=== PATIENT | male | born 1960 | race African-American/Black ===

== ENCOUNTER 2018-05-21 13:59 | Inpatient (IN) | payer OTHER ==
[2018-05-21 17:17] VITALS: BMI 25.0
--- NOTE | 2018-05-21 20:09 | HP ---
CIWA Score Nausea/Vomitin Muscle Tremors: 2 Anxiety: 1-Mildly Anxious Agitation: 2 Paroxysmal Sweats: 1-Minimal Palms Moist Orientation: 0-Oriented Tacttile Disturbances: 0-None Auditory Disturbances: 0-None Visual Disturbances: 0-None Headache: 6-Very Severe CIWA-Ar Total Score: 14 - Admission Criteria OASAS Guidelines: Admission for Medically Managed Detox: Requires at least one of the followin. CIWA greater than 12 2. Seizures within the past 24 hours 3. Delirium tremens within the past 24 hours 4. Hallucinations within the past 24 hours 5. Acute intervention needed for co occurring medical disorder 6. Acute intervention needed for co occurring psychiatric disorder 7. Severe withdrawal that cannot be handled at a lower level of care (continued vomiting, continued diarrhea, abnormal vital signs) requiring intravenous medication and/or fluids 8. Patient presents the following: CIWA greater than 12 Admission Criteria Met: Admission criteria met Admission ROS [facility] Chief Complaint: "I am here to detox from alcohol and crack" Allergies/Adverse Reactions: Allergies Allergy/AdvReac Type Severity Reaction Status Date / Time ibuprofen [From Motrin] Allergy Severe Difficulty Verified 05/21/18 17:56 Breathing History of Present Illness: 57 yo asthma, and h/o neck fracture, h/o groin hernia repair, here for alcohol detox. Started drinking alcohol at the age of 13. Using 1/2 liter of vodka a day. No h/ o seizures or DT's. Does not remember if he has had detox/rehab admissions. Last drink 2 days ago. Says he does not feel good now. Lives in [place]. Lives alone Also smokes $50-100/day of crack cocaine. Utox pos for cocaine, MIGNON- no alcohol ISTOP: 03/2018: percocet 5/325 #8 for neck pain 02/24/2018: diazepam 5mg 8 pills Exam Limitations: No Limitations - Ebola screening Have you traveled outside of the country in the last 21 days: No Have you had contact with anyone from an Ebola affected area: No Have you been sick,other than usual withdrawal symptoms: No Do you have a fever: No Patient History - Patient Medical History Hx Asthma: Yes Hx Chronic Obstructive Pulmonary Disease (COPD): No Hx Cancer: No Hx Cardiac Disorders: No Hx Congestive Heart Failure: No Hx Hypertension: No Hx Hypercholesterolemia: No Hx Pacemaker: No HX Cerebrovascular Accident: No Hx Seizures: No Hx Dementia: No Hx Diabetes: No Hx Gastrointestinal Disorders: No Hx Liver Disease: No Hx Genitourinary Disorders: No Hx Sexually Transmitted Disorders: No Hx Renal Disease (ESRD): No Hx Thyroid Disease: No Hx Human Immunodeficiency Virus (HIV): No Hx Hepatitis C: No Hx Depression: No Hx Suicide Attempt: No Hx Bipolar Disorder: No Hx Schizophrenia: No - Patient Surgical History Past Surgical History: Yes Hx Neurologic Surgery: No Hx Cataract Extraction: No Hx Cardiac Surgery: No Hx Lung Surgery: No Hx Breast Surgery: No Hx Breast Biopsy: No Hx Abdominal Surgery: Yes (incarcerated hernia repair X2 ) Hx Appendectomy: No Hx Cholecystectomy: No Hx Genitourinary Surgery: No Hx Section: No Hx Orthopedic Surgery: No Hx Hysterectomy: No Anesthesia Reaction: No - PPD History Previous Implant?: Yes Documented Results: Negative w/o proof PPD to be Administered?: Yes - Smoking Cessation Smoking history: Current every day smoker Have you smoked in the past 12 months: No Aproximately how many cigarettes per day: 4 Hx Chewing Tobacco Use: No Initiated information on smoking cessation: Yes 'Breaking Loose' booklet given: 05/21/18 - Substance & Tx. History Hx Alcohol Use: Yes (1/2 liter of vodka a day) Substance Use Type: Cocaine - Substances Abused Alcohol Route: Oral Frequency: Daily Amount used: LIQUOR- 2 PINTS, BEER- 1 SIX PACK Age of first use: 16 Date of Last Use: 05/19/18 Crack Route: Smoking Frequency: Daily Amount used: $65 WORTH Age of first use: 25 Date of Last Use: 05/21/18 Family Disease History - Family Disease History Family History: Denies Admission Physical Exam S - Vital Signs Vital Signs: Vital Signs - 24 hr 05/21/18 17:15 Temperature 98.3 F Pulse Rate 81 Respiratory 18 Rate Blood Pressure 123/80 - Physical General Appearance: Yes: Within Normal Limits HEENTM: Yes: Within Normal Limits, Pharynx Normal, Tm's normal (poor dentition) Respiratory: Yes: Within Normal Limits, Lungs Clear Neck: Yes: Within Normal Limits, No masses,lesions,Nodules Cardiology: Yes: Within Normal Limits, Regular Rhythm, S1, S2 Genitourinary: Yes: Within Normal Limits (abdominal scar) Back: Yes: Within Normal Limits Musculoskeletal: Yes: Within Normal Limits, full range of Motion Extremities: Yes: Within Normal Limits, Normal Inspection, Normal Range of Motion Neurological: Yes: Within Normal Limits, recycling director II-XII NML intact, Fully Oriented, Alert, Motor Strength 5/5 Integumentary: Yes: Within Normal Limits Lymphatic: Yes: Within Normal Limits - Diagnostic (1) Alcohol use disorder Current Visit: Yes Status: Acute (2) Asthma Current Visit: Yes Status: Acute (3) Cocaine use disorder Current Visit: Yes Status: Acute (4) Neck pain Current Visit: Yes Status: Acute (5) Nicotine use disorder Current Visit: Yes Status: Acute BHS Breath Alcohol Content Breath Alcohol Content: 0 Urine Drug Screen - Results Drug Screen Negative: No Urine Drug Screen Results: ANGUS-Cocaine
[2018-05-21] MEDS ORDERED: MAGNESIUM CITRATE 300 ML BOTTLE PO PRN (20:28)
[2018-05-21] MEDS ORDERED: guaiFENesin/D-METHORPHAN HB 10 ML UNIT-DOSE CUPS PO PRN (20:28)
[2018-05-21] MEDS ORDERED: MAG HYDROX/AL HYDROX/SIMETH 30 ML UNIT-DOSE CUP PO PRN (20:28)
[2018-05-21] MEDS ORDERED: P-EPHED 60MG/TRIPROLIDI 2.5MG TABLET PO PRN (20:28)
[2018-05-21] MEDS ORDERED: MAGNESIUM HYDROX 2400MG/30ML ORAL SUSPENSION 30 ML CUP PO PRN (20:28)
[2018-05-21] MEDS ORDERED: LOPERAMIDE HCL 2 MG CAPSULE PO PRN (20:28)
[2018-05-21] MEDS ORDERED: MENTHOL/PHENOL 1 EACH UD MM PRN (20:28)
[2018-05-21] MEDS ORDERED: chlordiazePOXIDE HCL 25 MG CAPSULE PO PRN (20:30)
[2018-05-21] MEDS ORDERED: ALBUTEROL SO4 8 GM HFA INHALER IH PRN (20:30)
[2018-05-21] MEDS: THIAMINE HCL 100 MG TABLET (FP) PO SCH (21:35)
[2018-05-21] MEDS: GABAPENTIN 300 MG CAPSULE (FP) PO SCH (21:36)
[2018-05-21] MEDS: ACETAMINOPHEN 325 MG TABLET (FP) PO PRN (21:38)
[2018-05-21] MEDS: chlordiazePOXIDE HCL 25 MG CAPSULE PO SCH (22:48)
[2018-05-21 23:13] LABS: URINE APPEARANCE CLEAR; URINE BILIRUBIN NEGATIVE (<2.0 mg/dL); URINE COLOR YELLOW; URINE GLUCOSE (UA) NEGATIVE (NEGATIVE); URINE KETONE NEGATIVE (NEGATIVE); URINE LEUK ESTERASE NEGATIVE (NEGATIVE); URINE NITRITE NEGATIVE (NEGATIVE); URINE PROTEIN NEGATIVE (NEGATIVE); URINE UROBILINOGEN NEGATIVE mg/dL (0.2-1.0)
[2018-05-22] MEDS ORDERED: ALBUTEROL SO4 2.5/IPRATROPIUM 0.5 INH SOL 3 ML VIAL.NEB. NEB PRN (00:56)
[2018-05-22] MEDS ORDERED: ALBUTEROL SO4 2.5/IPRATROPIUM 0.5 INH SOL 3 ML VIAL.NEB. NEB ONE (01:03)
[2018-05-22] MEDS: chlordiazePOXIDE HCL 25 MG CAPSULE PO SCH ×4 (05:20→22:12)
[2018-05-22] MEDS ORDERED: SODIUM CHLORIDE FOR INHALATION 3 ML VIAL.NEB IH ONE (08:33)
[2018-05-22] MEDS: ALBUTEROL SO4 0.083% IH SOL 2.5 MG/3 ML VIAL.NEB. NEB PRN (08:58)
[2018-05-22 09:54] LABS: HEMATOCRIT 40.8 % (35.4-49); HEMOGLOBIN 12.9 GM/dL (11.7-16.9); MCH 27.1 pg (25.7-33.7); MCHC 31.7 g/dl (32.0-35.9); MEAN CELL VOLUME 85.5 fl (80-96); MEAN PLT VOLUME 8.3 fl (7.5-11.1); PLATELET COUNT 285 K/MM3 (134-434); RBC 4.77 M/mm3 (4.00-5.60); WHITE BLOOD COUNT 4.2 K/mm3 (4.0-10.0)
[2018-05-22] MEDS ORDERED: BUDESONIDE/FORMETEROL FUMARATE 160/4.5 mcg INHALER IH SCH ×2 (10:00→12:27)
[2018-05-22 10:06] LABS: ALBUMIN 3.3 g/dl (3.4-5.0); ALK PHOS 94 U/L (45-117); ANION GAP 8 MMOL/L (8-16); BILIRUBIN,TOTAL 0.2 mg/dL (0.2-1); BLOOD UREA NITROGEN 21 mg/dL (7-18); CALCIUM 8.5 mg/dL (8.5-10.1); CHLORIDE 106 mmol/L (98-107); CO2 28 mmol/L (21-32); CREATININE 1.3 mg/dL (0.55-1.3); GLUCOSE,RANDOM 81 mg/dL (74-106); POTASSIUM 4.2 mmol/L (3.5-5.1); SGOT/AST 22 U/L (15-37); SGPT/ALT 26 U/L (13-61); SODIUM 141 mmol/L (136-145); TOT PROT 7.2 g/dl (6.4-8.2)
[2018-05-22] MEDS: GABAPENTIN 300 MG CAPSULE (FP) PO SCH ×2 (10:37→22:12)
[2018-05-22] MEDS: PRENATAL VITAMINS W/ FOLIC ACID TABLET (FP) PO SCH (10:37)
[2018-05-22] MEDS: NICOTINE 14 MG/24 HOURS TOPICAL PATCH TD SCH (10:41)
[2018-05-22] MEDS: TIOTROPIUM BROMIDE 2.5 MCG (SPIRIVA) RESPIMAT INHALER IH SCH (10:53)
--- NOTE | 2018-05-22 12:38 | PN ---
S CIWA - CIWA Score Nausea/Vomitin-No Nausea/No Vomiting Muscle Tremors: 2 Anxiety: 1-Mildly Anxious Agitation: 2 Paroxysmal Sweats: 1-Minimal Palms Moist Orientation: 0-Oriented Tacttile Disturbances: 0-None Auditory Disturbances: 0-None Visual Disturbances: 0-None Headache: 0-None Present CIWA-Ar Total Score: 6 BHS Progress Note (SOAP) Subjective: Pt complaining of SOB earlier this morning- was given nebulized treatment of albuterol- feeling better in bed now. Pt states taking meds for alcohol withdrawal- day #2. O: Vital Signs - 24 hr 05/21/18 05/21/18 05/22/18 17:15 21:43 00:30 Temperature 98.3 F 97.0 F L Pulse Rate 81 66 Respiratory 18 18 18 Rate Blood Pressure 123/80 109/70 05/22/18 05/22/18 06:17 10:50 Temperature 97.6 F 96.9 F L Pulse Rate 71 76 Respiratory 18 20 Rate Blood Pressure 122/76 114/71 Laboratory Tests 05/21/18 05/22/18 05/22/18 21:34 07:00 07:00 WBC 4.2 RBC 4.77 Hgb 12.9 Hct 40.8 MCV 85.5 MCH 27.1 MCHC 31.7 L RDW 15.0 Plt Count 285 MPV 8.3 Sodium Potassium Chloride Carbon Dioxide Anion Gap BUN Creatinine Creat Clearance w eGFR Random Glucose Calcium Total Bilirubin AST ALT Alkaline Phosphatase Total Protein Albumin Urine Color Yellow Urine Appearance Clear Urine pH 5.0 Ur Specific [place] 1.027 Urine Protein Negative Urine Glucose (UA) Negative Urine Ketones Negative Urine Blood Negative Urine Nitrite Negative Urine Bilirubin Negative Urine Urobilinogen Negative Ur Leukocyte Esterase Negative RPR Titer HIV 1&2 Antibody Screen Negative HIV P24 Antigen Negative 05/22/18 05/22/18 07:00 07:00 WBC RBC Hgb Hct MCV MCH MCHC RDW Plt Count MPV Sodium 141 Potassium 4.2 Chloride 106 Carbon Dioxide 28 Anion Gap 8 BUN 21 H Creatinine 1.3 Creat Clearance w eGFR 57.10 Random Glucose 81 Calcium 8.5 Total Bilirubin 0.2 AST 22 ALT 26 Alkaline Phosphatase 94 Total Protein 7.2 Albumin 3.3 L Urine Color Urine Appearance Urine pH Ur Specific [place] Urine Protein Urine Glucose (UA) Urine Ketones Urine Blood Urine Nitrite Urine Bilirubin Urine Urobilinogen Ur Leukocyte Esterase RPR Titer Nonreactive HIV 1&2 Antibody Screen HIV P24 Antigen labs and VS WNL a/p: continue alcohol detox protocol- doing well asthma: pt has spiriva qd and symbicort BID and prn albuterol.If pt has continued Sx will add prednisone. For now pt stable after nebulized treatments
[2018-05-22] MEDS: BUDESONIDE/FORMETEROL FUMARATE 160/4.5 mcg INHALER IH SCH ×2 (14:23→22:13)
[2018-05-22] MEDS: THIAMINE HCL 100 MG TABLET (FP) PO SCH (22:12)
[2018-05-22] MEDS: ACETAMINOPHEN 325 MG TABLET (FP) PO PRN (22:13)
[2018-05-23] MEDS: MELATONIN 5 MG TABLETS PO PRN ×2 (01:26→22:20)
[2018-05-23] MEDS: chlordiazePOXIDE HCL 25 MG CAPSULE PO SCH ×3 (05:15→17:38)
[2018-05-23] MEDS: ALBUTEROL SO4 0.083% IH SOL 2.5 MG/3 ML VIAL.NEB. NEB PRN (05:20)
[2018-05-23] MEDS: PRENATAL VITAMINS W/ FOLIC ACID TABLET (FP) PO SCH (10:26)
[2018-05-23] MEDS: TIOTROPIUM BROMIDE 2.5 MCG (SPIRIVA) RESPIMAT INHALER IH SCH (10:26)
[2018-05-23] MEDS: BUDESONIDE/FORMETEROL FUMARATE 160/4.5 mcg INHALER IH SCH ×2 (10:26→22:20)
[2018-05-23] MEDS: GABAPENTIN 300 MG CAPSULE (FP) PO SCH ×2 (10:27→22:19)
[2018-05-23] MEDS: NICOTINE 14 MG/24 HOURS TOPICAL PATCH TD SCH (10:27)
--- NOTE | 2018-05-23 14:41 | PN ---
[facility] CIWA - CIWA Score Nausea/Vomitin-Mild Nausea/No Vomiting Muscle Tremors: 3 Anxiety: 3 Agitation: 3 Paroxysmal Sweats: 2 Orientation: 0-Oriented Tacttile Disturbances: 0-None Auditory Disturbances: 0-None Visual Disturbances: 0-None Headache: 0-None Present CIWA-Ar Total Score: 12 S Progress Note (SOAP) Subjective: Patient refused to speak with life insurance underwriter Objective: 05/23/18 14:37 Last Vital Signs Temp Pulse Resp BP Pulse Ox 97.1 F L 60 18 85/60 L 05/23/18 09:10 05/23/18 09:10 05/23/18 09:10 05/23/18 09:10 Hypotension noted: 85/60 Laboratory Tests 05/21/18 05/22/18 05/22/18 21:34 07:00 07:00 WBC 4.2 RBC 4.77 Hgb 12.9 Hct 40.8 MCV 85.5 MCH 27.1 MCHC 31.7 L RDW 15.0 Plt Count 285 MPV 8.3 Sodium Potassium Chloride Carbon Dioxide Anion Gap BUN Creatinine Creat Clearance w eGFR Random Glucose Calcium Total Bilirubin AST ALT Alkaline Phosphatase Total Protein Albumin Urine Color Yellow Urine Appearance Clear Urine pH 5.0 Ur Specific [place] 1.027 Urine Protein Negative Urine Glucose (UA) Negative Urine Ketones Negative Urine Blood Negative Urine Nitrite Negative Urine Bilirubin Negative Urine Urobilinogen Negative Ur Leukocyte Esterase Negative RPR Titer HIV 1&2 Antibody Screen Negative HIV P24 Antigen Negative 05/22/18 05/22/18 07:00 07:00 WBC RBC Hgb Hct MCV MCH MCHC RDW Plt Count MPV Sodium 141 Potassium 4.2 Chloride 106 Carbon Dioxide 28 Anion Gap 8 BUN 21 H Creatinine 1.3 Creat Clearance w eGFR 57.10 Random Glucose 81 Calcium 8.5 Total Bilirubin 0.2 AST 22 ALT 26 Alkaline Phosphatase 94 Total Protein 7.2 Albumin 3.3 L Urine Color Urine Appearance Urine pH Ur Specific [place] Urine Protein Urine Glucose (UA) Urine Ketones Urine Blood Urine Nitrite Urine Bilirubin Urine Urobilinogen Ur Leukocyte Esterase RPR Titer Nonreactive HIV 1&2 Antibody Screen HIV P24 Antigen Labs reviewed: prerenal azotemia Assessment: 05/23/18 14:38 Withdrawal symptoms Hypotension and prerenal azotemia noted Plan: Continue detox Hypotension: asymptomatic, encouraged PO water intake, continue to monitor Prerenal azotemia: encouraged PO water hydration
[2018-05-23] MEDS: THIAMINE HCL 100 MG TABLET (FP) PO SCH (22:19)
[2018-05-23] MEDS: chlordiazePOXIDE 5 MG CAPSULE PO SCH (22:19)
[2018-05-24] MEDS: chlordiazePOXIDE 5 MG CAPSULE PO SCH ×3 (05:37→17:40)
[2018-05-24] MEDS: GABAPENTIN 300 MG CAPSULE (FP) PO SCH ×2 (10:34→22:23)
[2018-05-24] MEDS: TIOTROPIUM BROMIDE 2.5 MCG (SPIRIVA) RESPIMAT INHALER IH SCH (10:34)
[2018-05-24] MEDS: ACETAMINOPHEN 325 MG TABLET (FP) PO PRN ×2 (10:34→22:25)
[2018-05-24] MEDS: BUDESONIDE/FORMETEROL FUMARATE 160/4.5 mcg INHALER IH SCH ×2 (10:34→22:23)
[2018-05-24] MEDS: PRENATAL VITAMINS W/ FOLIC ACID TABLET (FP) PO SCH (10:34)
[2018-05-24] MEDS: NICOTINE 14 MG/24 HOURS TOPICAL PATCH TD SCH (10:35)
--- NOTE | 2018-05-24 14:36 | PN ---
[facility] CIWA - CIWA Score Nausea/Vomitin-Mild Nausea/No Vomiting Muscle Tremors: 2 Anxiety: 2 Agitation: 2 Paroxysmal Sweats: 2 Orientation: 0-Oriented Tacttile Disturbances: 0-None Auditory Disturbances: 0-None Visual Disturbances: 0-None Headache: 0-None Present CIWA-Ar Total Score: 9 S Progress Note (SOAP) Subjective: Sweating, chills, headache (7/10), neck hurts, interrupted sleep Objective: 05/24/18 14:27 Last Vital Signs Temp Pulse Resp BP Pulse Ox 97.2 F L 81 18 124/77 05/24/18 09:14 05/24/18 09:14 05/24/18 09:14 05/24/18 09:14 Laboratory Tests 05/21/18 05/22/18 05/22/18 21:34 07:00 07:00 WBC 4.2 RBC 4.77 Hgb 12.9 Hct 40.8 MCV 85.5 MCH 27.1 MCHC 31.7 L RDW 15.0 Plt Count 285 MPV 8.3 Sodium Potassium Chloride Carbon Dioxide Anion Gap BUN Creatinine Creat Clearance w eGFR Random Glucose Calcium Total Bilirubin AST ALT Alkaline Phosphatase Total Protein Albumin Urine Color Yellow Urine Appearance Clear Urine pH 5.0 Ur Specific [place] 1.027 Urine Protein Negative Urine Glucose (UA) Negative Urine Ketones Negative Urine Blood Negative Urine Nitrite Negative Urine Bilirubin Negative Urine Urobilinogen Negative Ur Leukocyte Esterase Negative RPR Titer HIV 1&2 Antibody Screen Negative HIV P24 Antigen Negative 05/22/18 05/22/18 07:00 07:00 WBC RBC Hgb Hct MCV MCH MCHC RDW Plt Count MPV Sodium 141 Potassium 4.2 Chloride 106 Carbon Dioxide 28 Anion Gap 8 BUN 21 H Creatinine 1.3 Creat Clearance w eGFR 57.10 Random Glucose 81 Calcium 8.5 Total Bilirubin 0.2 AST 22 ALT 26 Alkaline Phosphatase 94 Total Protein 7.2 Albumin 3.3 L Urine Color Urine Appearance Urine pH Ur Specific [place] Urine Protein Urine Glucose (UA) Urine Ketones Urine Blood Urine Nitrite Urine Bilirubin Urine Urobilinogen Ur Leukocyte Esterase RPR Titer Nonreactive HIV 1&2 Antibody Screen HIV P24 Antigen Labs reviewed: azotemia noted Assessment: 05/24/18 14:28 Withdrawal symptoms Noted with azotemia Plan: Continue detox Azotemia: encouraged PO water intake
[2018-05-24] MEDS: chlordiazePOXIDE HCL 10 MG CAPSULE PO SCH (22:23)
[2018-05-24] MEDS: THIAMINE HCL 100 MG TABLET (FP) PO SCH (22:23)
[2018-05-24] MEDS: MELATONIN 5 MG TABLETS PO PRN (22:24)
[2018-05-25] MEDS: chlordiazePOXIDE HCL 10 MG CAPSULE PO SCH (05:49)
[2018-05-25 06:15] VITALS: BP 119/74; PULSE 61; TEMP 97.3
--- NOTE | 2018-05-25 12:14 | DS ---
[facility] Detox Discharge Summary Admission Date: 05/21/18 Discharge Date: 05/25/18 - History Present History: Alcohol Dependence, Cocaine Dependence Additional Comments: Patient completed detox successfully. Patient is A, A, Ox3, in nad, ambulatory. 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 Patient stated that he can consider outpatient programs but just wants to focus on his business right now and that he believed that he can do without rehab. Patient instructed to follow up with his PCP within 1-2 weeks. Pertinent Past History: Withdrawal symptoms Laboratory Tests 05/21/18 05/22/18 05/22/18 21:34 07:00 07:00 WBC 4.2 RBC 4.77 Hgb 12.9 Hct 40.8 MCV 85.5 MCH 27.1 MCHC 31.7 L RDW 15.0 Plt Count 285 MPV 8.3 Sodium Potassium Chloride Carbon Dioxide Anion Gap BUN Creatinine Creat Clearance w eGFR Random Glucose Calcium Total Bilirubin AST ALT Alkaline Phosphatase Total Protein Albumin Urine Color Yellow Urine Appearance Clear Urine pH 5.0 Ur Specific [place] 1.027 Urine Protein Negative Urine Glucose (UA) Negative Urine Ketones Negative Urine Blood Negative Urine Nitrite Negative Urine Bilirubin Negative Urine Urobilinogen Negative Ur Leukocyte Esterase Negative RPR Titer HIV 1&2 Antibody Screen Negative HIV P24 Antigen Negative 05/22/18 05/22/18 07:00 07:00 WBC RBC Hgb Hct MCV MCH MCHC RDW Plt Count MPV Sodium 141 Potassium 4.2 Chloride 106 Carbon Dioxide 28 Anion Gap 8 BUN 21 H Creatinine 1.3 Creat Clearance w eGFR 57.10 Random Glucose 81 Calcium 8.5 Total Bilirubin 0.2 AST 22 ALT 26 Alkaline Phosphatase 94 Total Protein 7.2 Albumin 3.3 L Urine Color Urine Appearance Urine pH Ur Specific [place] Urine Protein Urine Glucose (UA) Urine Ketones Urine Blood Urine Nitrite Urine Bilirubin Urine Urobilinogen Ur Leukocyte Esterase RPR Titer Nonreactive HIV 1&2 Antibody Screen HIV P24 Antigen Labs reviewed: azotemia noted, encouraged PO water intake - Physical Exam Results Vital Signs: Vital Signs Temperature 97.3 F L 05/25/18 06:14 Pulse Rate 61 05/25/18 06:14 Respiratory Rate 18 05/25/18 06:14 Blood Pressure 119/74 05/25/18 06:14 O2 Sat by Pulse Oximetry (%) - Treatment Hospital Course: Detox Protocol Followed, Detoxed Safely, Responded well, Discharged Condition Good - Medication Discharge Medications: Ambulatory Orders Aspirin [ASA -] 05/21/18 Aspirin [ASA -] 81 mg PO DAILY 05/21/18 Budesonide/Formeterol Fumarate [SYMBICORT 160/4.5mcg -] 1 inh PO DAILY 05/21/18 Gabapentin [Neurontin -] 300 mg PO QID 05/21/18 Tiotropium [place] [Spiriva] 1 inh PO DAILY 05/21/18 - Diagnosis (1) Acute prerenal azotemia Status: Acute (2) Alcohol use disorder Status: Acute (3) Asthma Status: Chronic (4) Cocaine use disorder Status: Chronic (5) Nicotine use disorder Status: Chronic - AMA Did Patient Leave Against Medical Advice: No (F/U with PCP within 1-2 weeks)
== END 2018-05-25 10:02 | disposition home or self-care (01) | DRG 774 ==
LOC: YASAS 13:59 → Y3N 20:38
PROC: HZ2ZZZZ Detoxification Services for Substance Abuse Treatment (ICD-10-PCS; principal; 2018-05-21)
DX: F10.10 Alcohol abuse, uncomplicated (principal); F14.10 Cocaine abuse, uncomplicated; F17.200 Nicotine dependence, unspecified, uncomplicated; I95.9 Hypotension, unspecified; J45.909 Unspecified asthma, uncomplicated; M54.2 Cervicalgia; R79.89 Other specified abnormal findings of blood chemistry
CPT/HCPCS: 36415; 80053; 81003; 85027; 86593; 87389; 94640

== ENCOUNTER 2018-08-23 16:43 | Inpatient (IN) | payer OTHER ==
[2018-08-23 17:06] VITALS: BMI 24.3
--- NOTE | 2018-08-23 21:07 | HP ---
CIWA Score Nausea/Vomitin Muscle Tremors: 4-Moderate,w/Arms Extend Anxiety: 4-Mod. Anxious/Guarded Agitation: 1-Slight > Activity Paroxysmal Sweats: 3 Orientation: 0-Oriented Tacttile Disturbances: 0-None Auditory Disturbances: 0-None Visual Disturbances: 0-None Headache: 0-None Present CIWA-Ar Total Score: 15 - Admission Criteria OASAS Guidelines: Admission for Medically Managed Detox: Requires at least one of the followin. CIWA greater than 12 2. Seizures within the past 24 hours 3. Delirium tremens within the past 24 hours 4. Hallucinations within the past 24 hours 5. Acute intervention needed for co occurring medical disorder 6. Acute intervention needed for co occurring psychiatric disorder 7. Severe withdrawal that cannot be handled at a lower level of care (continued vomiting, continued diarrhea, abnormal vital signs) requiring intravenous medication and/or fluids 8. Admission ROS [facility] Chief Complaint: ` Alcohol withdrawal symptoms Allergies/Adverse Reactions: Allergies Allergy/AdvReac Type Severity Reaction Status Date / Time ibuprofen [From Motrin] Allergy Severe Difficulty Verified 05/21/18 17:56 Breathing History of Present Illness: 57 years old male with a long history of alcohol and cocaine dependence is seeking admission to detox. Patient has been in previous detox and reports 2 years of sobriety. He has medical medical history of asthma, neck pain and COPD. He denies suicide and suicidal ideation at this time. Exam Limitations: No Limitations - Ebola screening Have you traveled outside of the country in the last 21 days: No Have you had contact with anyone from an Ebola affected area: No Have you been sick,other than usual withdrawal symptoms: No Do you have a fever: No - Review of Systems Constitutional: Chills, Night Sweats EENT: reports: Nose Congestion Respiratory: reports: No Symptoms reported Cardiac: reports: No Symptoms Reported GI: reports: Diarrhea (x 2), Nausea, Poor Appetite, Poor Fluid Intake, Vomiting (x 2), Abdominal cramping : reports: No Symptoms Reported Musculoskeletal: reports: Back Pain Neuro: reports: Tremors Endocrine: reports: No Symptoms Reported Hematology: reports: No Symptoms Reported Psychiatric: reports: Mood/Affect Appropiate, Orientated x3 Other Systems: Reviewed and Negative Patient History - Patient Medical History Hx Asthma: Yes (Albuterol) Hx Chronic Obstructive Pulmonary Disease (COPD): Yes (Symbicort, Spiriva) Hx Cancer: No Hx Cardiac Disorders: No Hx Congestive Heart Failure: No Hx Hypertension: No Hx Hypercholesterolemia: No Hx Pacemaker: No HX Cerebrovascular Accident: No Hx Seizures: No Hx Dementia: No Hx Diabetes: No Hx Gastrointestinal Disorders: No Hx Liver Disease: No Hx Genitourinary Disorders: No Hx Sexually Transmitted Disorders: No Hx Renal Disease (ESRD): No Hx Thyroid Disease: No Hx Human Immunodeficiency Virus (HIV): No Hx Hepatitis C: No Hx Depression: No Hx Suicide Attempt: No Hx Bipolar Disorder: No Hx Schizophrenia: No - Patient Surgical History Past Surgical History: Yes Hx Neurologic Surgery: No Hx Cataract Extraction: No Hx Cardiac Surgery: No Hx Lung Surgery: No Hx Breast Surgery: No Hx Breast Biopsy: No Hx Abdominal Surgery: Yes (incarcerated hernia repair X2 ) Hx Appendectomy: No Hx Cholecystectomy: No Hx Genitourinary Surgery: No Hx Section: No Hx Orthopedic Surgery: No Hx Hysterectomy: No Anesthesia Reaction: No - PPD History Previous Implant?: Yes Documented Results: Negative w/proof Implanted On Prior [facility] Admission?: Yes Date: 05/23/18 PPD to be Administered?: No - Reproductive History Patient is a Female of Child Bearing Age (11 -55 yrs old): No - Smoking Cessation Smoking history: Current every day smoker Have you smoked in the past 12 months: Yes Aproximately how many cigarettes per day: 4 Hx Chewing Tobacco Use: No Initiated information on smoking cessation: Yes 'Breaking Loose' booklet given: 08/23/18 - Substance & Tx. History Hx Alcohol Use: Yes Hx Substance Use: Yes Substance Use Type: Cocaine Hx Substance Use Treatment: Yes ([facility] - Substances Abused Alcohol Route: Oral Frequency: Daily Amount used: BEER - 6 PACK, HENNESY- 1 PINT, Age of first use: 13 Date of Last Use: 08/23/18 Cocaine Route: Inhalation Frequency: Daily Amount used: $150 Age of first use: 23 Date of Last Use: 08/23/18 Family Disease History - Family Disease History Family History: Denies Admission Physical Exam BHS - Vital Signs Vital Signs: Vital Signs - 24 hr 08/23/18 17:03 Temperature 97.6 F Pulse Rate 60 Respiratory 18 Rate Blood Pressure 118/73 - Physical General Appearance: Yes: Moderate Distress, Tremorous, Irritable HEENTM: Yes: EOMI, Normal Voice, PRISCILLA Respiratory: Yes: Lungs Clear, Normal Breath Sounds, No Respiratory Distress Neck: Yes: Supple Breast: Yes: Breast Exam Deferred Cardiology: Yes: Regular Rhythm, Regular Rate Abdominal: Yes: Normal Bowel Sounds Genitourinary: Yes: Within Normal Limits Back: Yes: Normal Inspection Musculoskeletal: Yes: Back pain, Other (NECK PAIN) Extremities: Yes: Tremors Neurological: Yes: Alert, Normal Mood/Affect Integumentary: Yes: Warm Lymphatic: Yes: Within Normal Limits - Diagnostic (1) Cocaine dependence Current Visit: No Status: Chronic Qualifiers: Substance use status: uncomplicated Qualified Code(s): F14.20 - Cocaine dependence, uncomplicated (2) Nicotine dependence Current Visit: No Status: Chronic Qualifiers: Nicotine product type: cigarettes Substance use status: uncomplicated Qualified Code(s): F17.210 - Nicotine dependence, cigarettes, uncomplicated (3) Neck pain Current Visit: No Status: Chronic (4) Asthma Current Visit: No Status: Chronic Qualifiers: Asthma severity: moderate Asthma persistence: unspecified (5) Cocaine use disorder Current Visit: No Status: Chronic (6) COPD (chronic obstructive pulmonary disease) Current Visit: Yes Status: Chronic Qualifiers: COPD type: unspecified COPD Qualified Code(s): J44.9 - Chronic obstructive pulmonary disease, unspecified Cleared for Admission BHS - Detox or Rehab [facility] Level of Care: Medically Managed Detox Regimen/Protocol: Librium [facility] Breath Alcohol Content Breath Alcohol Content: 0 Urine Drug Screen - Results Drug Screen Negative: No Urine Drug Screen Results: ANGUS-Cocaine, BZO-Benzodiazepines Inpatient Rehab Admission - Rehab Decision to Admit Inpatient rehab admission?: No
[2018-08-23] MEDS ORDERED: MENTHOL/PHENOL 1 EACH UD MM PRN (21:19)
[2018-08-23] MEDS ORDERED: MAGNESIUM CITRATE 300 ML BOTTLE PO PRN (21:19)
[2018-08-23] MEDS ORDERED: MAGNESIUM HYDROX 2400MG/30ML ORAL SUSPENSION 30 ML CUP PO PRN (21:19)
[2018-08-23] MEDS ORDERED: MAG HYDROX/AL HYDROX/SIMETH 30 ML UNIT-DOSE CUP PO PRN (21:19)
[2018-08-23] MEDS ORDERED: ACETAMINOPHEN 325 MG TABLET (FP) PO PRN (21:19)
[2018-08-23] MEDS ORDERED: NICOTINE POLACRILEX 2 MG GUM BUC PRN (21:19)
[2018-08-23] MEDS ORDERED: IBUPROFEN 400 MG TABLET (FP) PO PRN (21:19)
[2018-08-23] MEDS ORDERED: hydrOXYzine PAMOATE 25 MG CAPSULE (FP) PO PRN (21:19)
[2018-08-23] MEDS ORDERED: BISMUTH SUBSALICYLATE 524 MG/30 ML UD PO PRN (21:19)
[2018-08-23] MEDS ORDERED: chlordiazePOXIDE HCL 25 MG CAPSULE PO PRN (21:19)
[2018-08-24] MEDS: chlordiazePOXIDE HCL 25 MG CAPSULE PO SCH ×5 (01:22→22:57)
[2018-08-24] MEDS: GABAPENTIN 300 MG CAPSULE (FP) PO SCH ×5 (01:23→22:57)
[2018-08-24] MEDS: THIAMINE HCL 100 MG TABLET (FP) PO SCH ×2 (01:23→22:57)
[2018-08-24] MEDS: MELATONIN 5 MG TABLETS PO PRN (01:48)
[2018-08-24] MEDS: ACETAMINOPHEN 325 MG TABLET (FP) PO PRN (10:27)
[2018-08-24] MEDS: PRENATAL VITAMINS W/ FOLIC ACID TABLET (FP) PO SCH (10:27)
[2018-08-24] MEDS: BUDESONIDE/FORMETEROL FUMARATE 160/4.5 mcg INHALER IH SCH ×2 (10:28→22:57)
[2018-08-24] MEDS: NICOTINE 14 MG/24 HOURS TOPICAL PATCH TD SCH (10:31)
[2018-08-24 11:02] LABS: HEMATOCRIT 35.8 % (35.4-49); HEMOGLOBIN 12.1 GM/dL (11.7-16.9); MCH 29.3 pg (25.7-33.7); MCHC 33.9 g/dl (32.0-35.9); MEAN CELL VOLUME 86.6 fl (80-96); MEAN PLT VOLUME 8.4 fl (7.5-11.1); PLATELET COUNT 245 K/MM3 (134-434); RBC 4.14 M/mm3 (4.00-5.60); RDW 15.3 % (11.9-15.9); WHITE BLOOD COUNT 3.7 K/mm3 (4.0-10.0)
[2018-08-24 11:24] LABS: ALBUMIN 2.8 g/dl (3.4-5.0); ALK PHOS 80 U/L (45-117); ANION GAP 6 MMOL/L (8-16); BILIRUBIN,TOTAL 0.2 mg/dL (0.2-1); BLOOD UREA NITROGEN 20 mg/dL (7-18); CALCIUM 8.1 mg/dL (8.5-10.1); CHLORIDE 110 mmol/L (98-107); CO2 27 mmol/L (21-32); CREATININE 1.4 mg/dL (0.55-1.3); GLUCOSE,RANDOM 105 mg/dL (74-106); POTASSIUM 4.2 mmol/L (3.5-5.1); SGOT/AST 16 U/L (15-37); SGPT/ALT 19 U/L (13-61); SODIUM 143 mmol/L (136-145); TOT PROT 5.7 g/dl (6.4-8.2)
[2018-08-24] MEDS: TIOTROPIUM BROMIDE 2.5 MCG (SPIRIVA) RESPIMAT INHALER IH SCH (12:43)
[2018-08-24] MEDS ORDERED: ALBUTEROL SO4 2.5/IPRATROPIUM 0.5 INH SOL 3 ML VIAL.NEB. NEB PRN (15:16)
--- NOTE | 2018-08-24 23:49 | PN ---
[facility] CIWA - CIWA Score Nausea/Vomitin-No Nausea/No Vomiting Muscle Tremors: 3 Anxiety: 3 Agitation: 1-Slight > Activity Paroxysmal Sweats: 3 Orientation: 0-Oriented Tacttile Disturbances: 2-Mild Itch/Numbness/Burn Auditory Disturbances: 2-Mild Harshness/Frighten Visual Disturbances: 2-Mild Sensitivity Headache: 0-None Present CIWA-Ar Total Score: 16 BHS Progress Note (SOAP) Subjective: Tremors, Sweating, Anxious. Objective: PATIENT A & O X 3, OBSERVED AMBULATING ON UNIT. IN NO ACUTE DISTRESS. 08/24/18 23:50 Laboratory Tests 08/24/18 08/24/18 07:00 07:00 WBC 3.7 L RBC 4.14 Hgb 12.1 Hct 35.8 MCV 86.6 MCH 29.3 MCHC 33.9 RDW 15.3 Plt Count 245 MPV 8.4 Sodium 143 Potassium 4.2 Chloride 110 H Carbon Dioxide 27 Anion Gap 6 L BUN 20 H Creatinine 1.4 H Creat Clearance w eGFR 52.42 Random Glucose 105 Calcium 8.1 L Total Bilirubin 0.2 AST 16 ALT 19 Alkaline Phosphatase 80 Total Protein 5.7 L Albumin 2.8 L LABS NOTED. RPR RESULT PENDING. 08/24/18 23:55 Assessment: 08/24/18 23:51 WITHDRAWAL SYMPTOMS. LEUKOPENIA. ABNORMAL RENAL LAB VALUES. 08/24/18 23:53 Plan: CONTINUE DETOX. INCREASE DAILY PO FLUID INTAKE. D/C MAGNESIUM-CONTAINING MEDS. FOR ABNORMAL ADMISSION RENAL LAB VALUES. BMP ON 08/26/2018 FOR ABNORMAL ADMISSION RENAL LAB VALUES.
[2018-08-25] MEDS: ACETAMINOPHEN 325 MG TABLET (FP) PO PRN (03:35)
[2018-08-25] MEDS: chlordiazePOXIDE HCL 25 MG CAPSULE PO SCH ×3 (05:00→17:31)
[2018-08-25] MEDS: GABAPENTIN 300 MG CAPSULE (FP) PO SCH ×4 (10:09→22:19)
[2018-08-25] MEDS: BUDESONIDE/FORMETEROL FUMARATE 160/4.5 mcg INHALER IH SCH ×2 (10:09→22:45)
[2018-08-25] MEDS: TIOTROPIUM BROMIDE 2.5 MCG (SPIRIVA) RESPIMAT INHALER IH SCH (10:09)
[2018-08-25] MEDS: PRENATAL VITAMINS W/ FOLIC ACID TABLET (FP) PO SCH (10:09)
[2018-08-25] MEDS: NICOTINE 14 MG/24 HOURS TOPICAL PATCH TD SCH (10:09)
[2018-08-25] MEDS: METHOCARBAMOL 500 MG TABLET PO PRN (14:10)
--- NOTE | 2018-08-25 14:34 | PN ---
S CIWA - CIWA Score Nausea/Vomitin-No Nausea/No Vomiting Muscle Tremors: 3 Anxiety: 1-Mildly Anxious Agitation: 0-Normal Activity Paroxysmal Sweats: 3 Orientation: 0-Oriented Tacttile Disturbances: 1-Very Mild Itch/Numbness Auditory Disturbances: 0-None Visual Disturbances: 2-Mild Sensitivity Headache: 0-None Present CIWA-Ar Total Score: 10 BHS Progress Note (SOAP) Subjective: Tremors, Sweating, Body Aches. Objective: PATIENT A & O X 3, OBSERVED AMBULATING ON UNIT. IN NO ACUTE DISTRESS. 08/25/18 14:32 Laboratory Tests 08/24/18 08/24/18 08/24/18 07:00 07:00 07:00 WBC 3.7 L RBC 4.14 Hgb 12.1 Hct 35.8 MCV 86.6 MCH 29.3 MCHC 33.9 RDW 15.3 Plt Count 245 MPV 8.4 Sodium 143 Potassium 4.2 Chloride 110 H Carbon Dioxide 27 Anion Gap 6 L BUN 20 H Creatinine 1.4 H Creat Clearance w eGFR 52.42 Random Glucose 105 Calcium 8.1 L Total Bilirubin 0.2 AST 16 ALT 19 Alkaline Phosphatase 80 Total Protein 5.7 L Albumin 2.8 L RPR Titer Nonreactive LABS NOTED. Assessment: 08/25/18 14:32 WITHDRAWAL SYMPTOMS. LEUKOPENIA. 08/25/18 14:34 Plan: CONTINUE DETOX.
[2018-08-25] MEDS: MELATONIN 5 MG TABLETS PO PRN (22:19)
[2018-08-25] MEDS: THIAMINE HCL 100 MG TABLET (FP) PO SCH (22:19)
[2018-08-25] MEDS: chlordiazePOXIDE HCL 10 MG CAPSULE PO SCH (22:19)
[2018-08-25] MEDS ORDERED: chlordiazePOXIDE HCL 10 MG CAPSULE PO PRN (23:00)
[2018-08-26] MEDS: chlordiazePOXIDE HCL 10 MG CAPSULE PO SCH ×4 (05:40→22:15)
[2018-08-26] MEDS: BUDESONIDE/FORMETEROL FUMARATE 160/4.5 mcg INHALER IH SCH ×2 (10:05→22:15)
[2018-08-26] MEDS: GABAPENTIN 300 MG CAPSULE (FP) PO SCH ×4 (10:05→22:15)
[2018-08-26] MEDS: PRENATAL VITAMINS W/ FOLIC ACID TABLET (FP) PO SCH (10:05)
[2018-08-26] MEDS: NICOTINE 14 MG/24 HOURS TOPICAL PATCH TD SCH (10:05)
[2018-08-26] MEDS: TIOTROPIUM BROMIDE 2.5 MCG (SPIRIVA) RESPIMAT INHALER IH SCH (10:06)
[2018-08-26] MEDS: ACETAMINOPHEN 325 MG TABLET (FP) PO PRN (10:07)
[2018-08-26] MEDS: METHOCARBAMOL 500 MG TABLET PO PRN (11:59)
--- NOTE | 2018-08-26 12:10 | PN ---
S CIWA - CIWA Score Nausea/Vomitin-No Nausea/No Vomiting Muscle Tremors: 1-None Visible, but [place] Anxiety: 1-Mildly Anxious Agitation: 1-Slight > Activity Paroxysmal Sweats: 1-Minimal Palms Moist Orientation: 1-Uncertain about Date Tacttile Disturbances: 0-None Auditory Disturbances: 0-None Visual Disturbances: 0-None Headache: 1-Very Mild CIWA-Ar Total Score: 6 BHS Progress Note (SOAP) Subjective: feeling better less sweating mild tremor discuss aftercare with staff Objective: 08/26/18 12:10 Vital Signs Temperature 97.5 F L 08/26/18 09:24 Pulse Rate 70 08/26/18 09:24 Respiratory Rate 18 08/26/18 09:24 Blood Pressure 103/60 08/26/18 09:24 O2 Sat by Pulse Oximetry (%) Laboratory Last Values WBC 3.7 K/mm3 (4.0-10.0) L 08/24/18 07:00 RBC 4.14 M/mm3 (4.00-5.60) 08/24/18 07:00 Hgb 12.1 GM/dL (11.7-16.9) 08/24/18 07:00 Hct 35.8 % (35.4-49) 08/24/18 07:00 MCV 86.6 fl (80-96) 08/24/18 07:00 MCH 29.3 pg (25.7-33.7) 08/24/18 07:00 MCHC 33.9 g/dl (32.0-35.9) 08/24/18 07:00 RDW 15.3 % (11.9-15.9) 08/24/18 07:00 Plt Count 245 K/MM3 (134-434) 08/24/18 07:00 MPV 8.4 fl (7.5-11.1) 08/24/18 07:00 Sodium 143 mmol/L (136-145) 08/24/18 07:00 Potassium 4.2 mmol/L (3.5-5.1) 08/24/18 07:00 Chloride 110 mmol/L (98-107) H 08/24/18 07:00 Carbon Dioxide 27 mmol/L (21-32) 08/24/18 07:00 Anion Gap 6 MMOL/L (8-16) L 08/24/18 07:00 BUN 20 mg/dL (7-18) H 08/24/18 07:00 Creatinine 1.4 mg/dL (0.55-1.3) H 08/24/18 07:00 Creat Clearance w eGFR 52.42 (>60) 08/24/18 07:00 Random Glucose 105 mg/dL (74-106) 08/24/18 07:00 Calcium 8.1 mg/dL (8.5-10.1) L 08/24/18 07:00 Total Bilirubin 0.2 mg/dL (0.2-1) 08/24/18 07:00 AST 16 U/L (15-37) 08/24/18 07:00 ALT 19 U/L (13-61) 08/24/18 07:00 Alkaline Phosphatase 80 U/L (45-117) 08/24/18 07:00 Total Protein 5.7 g/dl (6.4-8.2) L 08/24/18 07:00 Albumin 2.8 g/dl (3.4-5.0) L 08/24/18 07:00 RPR Titer Nonreactive (NONREACTIVE) 08/24/18 07:00 lab noted Assessment: 08/26/18 12:10 mild alcohol withdrawal sx Plan: continue detox
[2018-08-26] MEDS ORDERED: LIDOCAINE VISCOUS 2% ORAL/TOP 20 ML UNIT-DOSE CUP MM PRN (15:26)
[2018-08-26] MEDS: THIAMINE HCL 100 MG TABLET (FP) PO SCH (22:15)
[2018-08-26] MEDS: MELATONIN 5 MG TABLETS PO PRN (22:16)
[2018-08-27] MEDS: GABAPENTIN 300 MG CAPSULE (FP) PO SCH (09:42)
[2018-08-27] MEDS: NICOTINE 14 MG/24 HOURS TOPICAL PATCH TD SCH (09:42)
[2018-08-27] MEDS: PRENATAL VITAMINS W/ FOLIC ACID TABLET (FP) PO SCH (09:42)
[2018-08-27] MEDS: ACETAMINOPHEN 325 MG TABLET (FP) PO PRN (09:43)
[2018-08-27] MEDS: TIOTROPIUM BROMIDE 2.5 MCG (SPIRIVA) RESPIMAT INHALER IH SCH (10:37)
[2018-08-27] MEDS: chlordiazePOXIDE HCL 10 MG CAPSULE PO SCH (10:38)
[2018-08-27] MEDS: BUDESONIDE/FORMETEROL FUMARATE 160/4.5 mcg INHALER IH SCH (10:38)
[2018-08-27 13:36] VITALS: BP 104/66; PULSE 74; TEMP 98
--- NOTE | 2018-08-27 14:49 | DS ---
[facility] Detox Discharge Summary Admission Date: 08/23/18 Discharge Date: 08/27/18 - History Present History: Alcohol Dependence Additional Comments: 57 years old male admitted on 08/23/18 for alcohol withdrawal stabilization completed detox regimen after[facility] - Physical Exam Results Vital Signs: Vital Signs Temperature 98.0 F 08/27/18 13:35 Pulse Rate 74 08/27/18 13:35 Respiratory Rate 18 08/27/18 13:35 Blood Pressure 104/66 08/27/18 13:35 O2 Sat by Pulse Oximetry (%) Pertinent Admission Physical Exam Findings: alcohol withdrawal sx Laboratory Last Values WBC 3.7 K/mm3 (4.0-10.0) L 08/24/18 07:00 RBC 4.14 M/mm3 (4.00-5.60) 08/24/18 07:00 Hgb 12.1 GM/dL (11.7-16.9) 08/24/18 07:00 Hct 35.8 % (35.4-49) 08/24/18 07:00 MCV 86.6 fl (80-96) 08/24/18 07:00 MCH 29.3 pg (25.7-33.7) 08/24/18 07:00 MCHC 33.9 g/dl (32.0-35.9) 08/24/18 07:00 RDW 15.3 % (11.9-15.9) 08/24/18 07:00 Plt Count 245 K/MM3 (134-434) 08/24/18 07:00 MPV 8.4 fl (7.5-11.1) 08/24/18 07:00 Sodium 143 mmol/L (136-145) 08/24/18 07:00 Potassium 4.2 mmol/L (3.5-5.1) 08/24/18 07:00 Chloride 110 mmol/L (98-107) H 08/24/18 07:00 Carbon Dioxide 27 mmol/L (21-32) 08/24/18 07:00 Anion Gap 6 MMOL/L (8-16) L 08/24/18 07:00 BUN 20 mg/dL (7-18) H 08/24/18 07:00 Creatinine 1.4 mg/dL (0.55-1.3) H 08/24/18 07:00 Creat Clearance w eGFR 52.42 (>60) 08/24/18 07:00 Random Glucose 105 mg/dL (74-106) 08/24/18 07:00 Calcium 8.1 mg/dL (8.5-10.1) L 08/24/18 07:00 Total Bilirubin 0.2 mg/dL (0.2-1) 08/24/18 07:00 AST 16 U/L (15-37) 08/24/18 07:00 ALT 19 U/L (13-61) 08/24/18 07:00 Alkaline Phosphatase 80 U/L (45-117) 08/24/18 07:00 Total Protein 5.7 g/dl (6.4-8.2) L 08/24/18 07:00 Albumin 2.8 g/dl (3.4-5.0) L 08/24/18 07:00 RPR Titer Nonreactive (NONREACTIVE) 08/24/18 07:00 lab noted - Treatment Hospital Course: Detox Protocol Followed, Detoxed Safely, Responded well, Discharged Condition Good, Rehab Referral Accepted Patient has Accepted a [facility] Referral to: [facility] - Medication Discharge Medications: Ambulatory Orders Aspirin [ASA -] 81 mg PO DAILY 05/21/18 Budesonide/Formeterol Fumarate [SYMBICORT 160/4.5mcg -] 1 inh PO BID 05/21/18 Gabapentin [Neurontin -] 300 mg PO QID 05/21/18 Tiotropium [place] [Spiriva] 1 inh PO DAILY 05/21/18 Levofloxacin [Levaquin] 750 mg PO DAILY 08/24/18 - Diagnosis (1) Alcohol use disorder Status: Acute (2) Asthma Status: Chronic Qualifiers: Asthma severity: moderate Asthma persistence: unspecified (3) COPD (chronic obstructive pulmonary disease) Status: Chronic Qualifiers: COPD type: emphysema Emphysema type: panlobular Qualified Code(s): J43.1 - Panlobular emphysema (4) Nicotine dependence Status: Acute Qualifiers: Nicotine product type: cigarettes Substance use status: in withdrawal Qualified Code(s): F17.213 - Nicotine dependence, cigarettes, with withdrawal - AMA Did Patient Leave Against Medical Advice: No
== END 2018-08-27 14:47 | disposition other institution (70) | DRG 774 ==
LOC: YASAS 16:43 → Y3N 23:26
PROVIDERS: ADMIT Surgery; ATTEND Surgery
PROC: HZ2ZZZZ Detoxification Services for Substance Abuse Treatment (ICD-10-PCS; principal; 2018-08-23)
DX: F10.230 Alcohol dependence with withdrawal, uncomplicated (principal); F14.20 Cocaine dependence, uncomplicated; F17.213 Nicotine dependence, cigarettes, with withdrawal; J45.998 Other asthma; J43.1 Panlobular emphysema; D72.819 Decreased white blood cell count, unspecified; R94.4 Abnormal results of kidney function studies; M54.2 Cervicalgia; Z88.8 Allergy status to other drugs, medicaments and biological substances
CPT/HCPCS: 36415; 80053; 85027; 86593

== ENCOUNTER 2018-08-27 15:30 | Inpatient (IN) | payer OTHER ==
--- NOTE | 2018-08-27 14:53 | HP ---
[facility] Rehab Assess/Revision - Admission History Ad[facility] to [facility] Date of Admission to Rehab: 08/27/18 - Findings Detox History & Physical reviewed: Yes Concur with findings: Yes Comments/Additional Findings: transferred from detox to rehab admission as per protocol Inpatient Rehab Admission - Rehab Decision to Admit Inpatient rehab admission?: Yes - Initial Determination Are CD services needed?: Yes Free of communicable disease: Yes Not in need of hospitalization: Yes - Rehab Admission Criteria Previous failed treatment: Yes Poor recovery environment: Yes Comorbidities: Yes Lacks judgement: No Patient is meeting Inpatient Rehab admission criteria:: Yes
[~2018-08-27 15:30] MED LIST: LOPERAMIDE HCL 2 MG CAPSULE PO PRN; MAGNESIUM CITRATE 300 ML BOTTLE PO PRN; MAGNESIUM HYDROX 2400MG/30ML ORAL SUSPENSION 30 ML CUP PO PRN; MENTHOL/PHENOL 1 EACH UD MM PRN; NICOTINE POLACRILEX 2 MG GUM BUC PRN; P-EPHED 60MG/TRIPROLIDI 2.5MG TABLET PO PRN; guaiFENesin 200 MG/10 ML 10 ML UNIT-DOSE CUPS PO PRN
[2018-08-27] MEDS ORDERED: ALBUTEROL SO4 0.083% IH SOL 2.5 MG/3 ML VIAL.NEB. NEB PRN (15:37)
[2018-08-27] MEDS: ACETAMINOPHEN 325 MG TABLET (FP) PO PRN (18:50)
[2018-08-27] MEDS: LIDOCAINE VISCOUS 2% ORAL/TOP 20 ML UNIT-DOSE CUP MM PRN (18:52)
[2018-08-27] MEDS: MAG HYDROX/AL HYDROX/SIMETH 30 ML UNIT-DOSE CUP PO PRN (18:52)
[2018-08-27] MEDS: THIAMINE HCL 100 MG TABLET (FP) PO SCH (21:15)
[2018-08-27] MEDS: BUDESONIDE/FORMETEROL FUMARATE 160/4.5 mcg INHALER IH SCH (21:15)
[2018-08-28] MEDS: MELATONIN 5 MG TABLETS PO PRN (00:33)
[2018-08-28] MEDS: ACETAMINOPHEN 325 MG TABLET (FP) PO PRN (06:15)
[2018-08-28] MEDS: LIDOCAINE VISCOUS 2% ORAL/TOP 20 ML UNIT-DOSE CUP MM PRN (06:16)
[2018-08-28] MEDS: PRENATAL VITAMINS W/ FOLIC ACID TABLET (FP) PO SCH (09:41)
[2018-08-28] MEDS: GABAPENTIN 300 MG CAPSULE (FP) PO SCH ×4 (09:41→21:26)
[2018-08-28] MEDS: ASPIRIN 81 MG CHEWABLE TABLETS PO SCH (09:41)
[2018-08-28] MEDS: BUDESONIDE/FORMETEROL FUMARATE 160/4.5 mcg INHALER IH SCH ×2 (09:41→21:26)
[2018-08-28] MEDS: TIOTROPIUM BROMIDE 2.5 MCG (SPIRIVA) RESPIMAT INHALER IH SCH (09:42)
[2018-08-28] MEDS: NICOTINE 14 MG/24 HOURS TOPICAL PATCH TD PRN (10:02)
[2018-08-28] MEDS: THIAMINE HCL 100 MG TABLET (FP) PO SCH (21:26)
[2018-08-29] MEDS: BUDESONIDE/FORMETEROL FUMARATE 160/4.5 mcg INHALER IH SCH ×2 (09:25→21:15)
[2018-08-29] MEDS: GABAPENTIN 300 MG CAPSULE (FP) PO SCH ×4 (09:25→21:14)
[2018-08-29] MEDS: PRENATAL VITAMINS W/ FOLIC ACID TABLET (FP) PO SCH (09:25)
[2018-08-29] MEDS: ASPIRIN 81 MG CHEWABLE TABLETS PO SCH (09:25)
[2018-08-29] MEDS: ACETAMINOPHEN 325 MG TABLET (FP) PO PRN (09:26)
[2018-08-29] MEDS: NICOTINE 14 MG/24 HOURS TOPICAL PATCH TD PRN (10:10)
[2018-08-29] MEDS: TIOTROPIUM BROMIDE 2.5 MCG (SPIRIVA) RESPIMAT INHALER IH SCH (10:10)
[2018-08-29] MEDS ORDERED: CHLORHEXIDINE GLUCONATE 0.12% 15ML CUP MM ONE (10:58)
--- NOTE | 2018-08-29 11:01 | PN ---
[facility] Progress Note Note: PT WAS ADMITTED FROM DETOX 2 DAYS AGO,08/27/18. PT REPORTS MULTIPLE TEETH IN POOR STATE OF REPAIR. SORE ON RIGHT UPPER GUM AREA. PT REPORTS HE COMPLETED LEVAQUIN DOSE FOR PNEUMONIA TREATMENT WHILE IN DETOX BEFORE REHAB ADMISSION. Vital Signs - 24 hr 08/29/18 08/29/18 08/29/18 00:30 03:30 06:37 Temperature 97.5 F L Pulse Rate 61 Respiratory 18 18 18 Rate Blood Pressure 127/74 ORAL EXAM: MANY TEETH IN POOR STATE OF REPAIR/ MANY TEETH LOSS. RIGHT UPPER GUM ULCER. A: GUM ULCER PLAN:PERIDEX MOUTH RINSE BID RE-EVALUATE IF NOT GETTING BETTER.
[2018-08-29] MEDS: THIAMINE HCL 100 MG TABLET (FP) PO SCH (21:14)
[2018-08-29] MEDS: CHLORHEXIDINE GLUCONATE 118 ML MOUTHWASH MM SCH (21:15)
[2018-08-30] MEDS: GABAPENTIN 300 MG CAPSULE (FP) PO SCH ×4 (09:43→21:12)
[2018-08-30] MEDS: ASPIRIN 81 MG CHEWABLE TABLETS PO SCH (09:43)
[2018-08-30] MEDS: PRENATAL VITAMINS W/ FOLIC ACID TABLET (FP) PO SCH (09:43)
[2018-08-30] MEDS: CHLORHEXIDINE GLUCONATE 118 ML MOUTHWASH MM SCH ×2 (09:44→21:13)
[2018-08-30] MEDS: TIOTROPIUM BROMIDE 2.5 MCG (SPIRIVA) RESPIMAT INHALER IH SCH (09:45)
[2018-08-30] MEDS: BUDESONIDE/FORMETEROL FUMARATE 160/4.5 mcg INHALER IH SCH ×2 (09:45→21:12)
[2018-08-30] MEDS: NICOTINE 14 MG/24 HOURS TOPICAL PATCH TD PRN (14:09)
[2018-08-30] MEDS: THIAMINE HCL 100 MG TABLET (FP) PO SCH (21:13)
[2018-08-31] MEDS: ASPIRIN 81 MG CHEWABLE TABLETS PO SCH (09:51)
[2018-08-31] MEDS: NICOTINE 14 MG/24 HOURS TOPICAL PATCH TD PRN (09:51)
[2018-08-31] MEDS: CHLORHEXIDINE GLUCONATE 118 ML MOUTHWASH MM SCH ×2 (09:51→22:13)
[2018-08-31] MEDS: PRENATAL VITAMINS W/ FOLIC ACID TABLET (FP) PO SCH (09:51)
[2018-08-31] MEDS: GABAPENTIN 300 MG CAPSULE (FP) PO SCH ×4 (09:52→21:27)
[2018-08-31] MEDS: TIOTROPIUM BROMIDE 2.5 MCG (SPIRIVA) RESPIMAT INHALER IH SCH (09:53)
[2018-08-31] MEDS: BUDESONIDE/FORMETEROL FUMARATE 160/4.5 mcg INHALER IH SCH ×2 (09:53→21:27)
[2018-08-31] MEDS: THIAMINE HCL 100 MG TABLET (FP) PO SCH (21:27)
[2018-09-01] MEDS: PRENATAL VITAMINS W/ FOLIC ACID TABLET (FP) PO SCH (09:54)
[2018-09-01] MEDS: ASPIRIN 81 MG CHEWABLE TABLETS PO SCH (09:54)
[2018-09-01] MEDS: CHLORHEXIDINE GLUCONATE 118 ML MOUTHWASH MM SCH ×2 (09:54→21:15)
[2018-09-01] MEDS: GABAPENTIN 300 MG CAPSULE (FP) PO SCH ×4 (09:54→21:15)
[2018-09-01] MEDS: TIOTROPIUM BROMIDE 2.5 MCG (SPIRIVA) RESPIMAT INHALER IH SCH (09:54)
[2018-09-01] MEDS: BUDESONIDE/FORMETEROL FUMARATE 160/4.5 mcg INHALER IH SCH ×2 (09:55→21:15)
[2018-09-01] MEDS: NICOTINE 14 MG/24 HOURS TOPICAL PATCH TD PRN (09:57)
[2018-09-01] MEDS: LIDOCAINE VISCOUS 2% ORAL/TOP 20 ML UNIT-DOSE CUP MM PRN (21:15)
[2018-09-01] MEDS: THIAMINE HCL 100 MG TABLET (FP) PO SCH (21:15)
[2018-09-01] MEDS: MAG HYDROX/AL HYDROX/SIMETH 30 ML UNIT-DOSE CUP PO PRN (21:16)
[2018-09-01] MEDS ORDERED: ALBUTEROL SO4 0.083% IH SOL 2.5 MG/3 ML VIAL.NEB. NEB PRN (23:00)
[2018-09-02] MEDS: GABAPENTIN 300 MG CAPSULE (FP) PO SCH ×4 (10:09→21:10)
[2018-09-02] MEDS: CHLORHEXIDINE GLUCONATE 118 ML MOUTHWASH MM SCH ×2 (10:09→21:11)
[2018-09-02] MEDS: TIOTROPIUM BROMIDE 2.5 MCG (SPIRIVA) RESPIMAT INHALER IH SCH (10:09)
[2018-09-02] MEDS: PRENATAL VITAMINS W/ FOLIC ACID TABLET (FP) PO SCH (10:09)
[2018-09-02] MEDS: ASPIRIN 81 MG CHEWABLE TABLETS PO SCH (10:09)
[2018-09-02] MEDS: BUDESONIDE/FORMETEROL FUMARATE 160/4.5 mcg INHALER IH SCH ×2 (10:09→21:11)
[2018-09-02] MEDS: THIAMINE HCL 100 MG TABLET (FP) PO SCH (21:10)
[2018-09-03] MEDS: PRENATAL VITAMINS W/ FOLIC ACID TABLET (FP) PO SCH (10:05)
[2018-09-03] MEDS: GABAPENTIN 300 MG CAPSULE (FP) PO SCH ×4 (10:05→21:12)
[2018-09-03] MEDS: ASPIRIN 81 MG CHEWABLE TABLETS PO SCH (10:05)
[2018-09-03] MEDS: TIOTROPIUM BROMIDE 2.5 MCG (SPIRIVA) RESPIMAT INHALER IH SCH (10:05)
[2018-09-03] MEDS: BUDESONIDE/FORMETEROL FUMARATE 160/4.5 mcg INHALER IH SCH ×2 (10:05→21:11)
[2018-09-03] MEDS: CHLORHEXIDINE GLUCONATE 118 ML MOUTHWASH MM SCH ×2 (10:06→21:12)
[2018-09-03] MEDS: NICOTINE 14 MG/24 HOURS TOPICAL PATCH TD PRN (10:16)
[2018-09-03] MEDS: THIAMINE HCL 100 MG TABLET (FP) PO SCH (21:12)
[2018-09-04] MEDS: GABAPENTIN 300 MG CAPSULE (FP) PO SCH ×4 (10:13→21:18)
[2018-09-04] MEDS: ASPIRIN 81 MG CHEWABLE TABLETS PO SCH (10:13)
[2018-09-04] MEDS: PRENATAL VITAMINS W/ FOLIC ACID TABLET (FP) PO SCH (10:13)
[2018-09-04] MEDS: CHLORHEXIDINE GLUCONATE 118 ML MOUTHWASH MM SCH ×2 (10:14→21:18)
[2018-09-04] MEDS: BUDESONIDE/FORMETEROL FUMARATE 160/4.5 mcg INHALER IH SCH ×2 (10:14→21:18)
[2018-09-04] MEDS: TIOTROPIUM BROMIDE 2.5 MCG (SPIRIVA) RESPIMAT INHALER IH SCH (10:14)
[2018-09-04] MEDS: THIAMINE HCL 100 MG TABLET (FP) PO SCH (21:18)
[2018-09-04] MEDS: ACETAMINOPHEN 325 MG TABLET (FP) PO PRN (21:19)
[2018-09-05] MEDS: ACETAMINOPHEN 325 MG TABLET (FP) PO PRN (06:32)
[2018-09-05] MEDS: PRENATAL VITAMINS W/ FOLIC ACID TABLET (FP) PO SCH (09:59)
[2018-09-05] MEDS: ASPIRIN 81 MG CHEWABLE TABLETS PO SCH (09:59)
[2018-09-05] MEDS: TIOTROPIUM BROMIDE 2.5 MCG (SPIRIVA) RESPIMAT INHALER IH SCH (10:00)
[2018-09-05] MEDS: GABAPENTIN 300 MG CAPSULE (FP) PO SCH ×4 (10:00→21:13)
[2018-09-05] MEDS: BUDESONIDE/FORMETEROL FUMARATE 160/4.5 mcg INHALER IH SCH ×2 (10:00→21:14)
[2018-09-05] MEDS: CHLORHEXIDINE GLUCONATE 118 ML MOUTHWASH MM SCH ×2 (10:00→21:14)
[2018-09-05] MEDS: NICOTINE 14 MG/24 HOURS TOPICAL PATCH TD PRN (10:55)
[2018-09-05] MEDS: THIAMINE HCL 100 MG TABLET (FP) PO SCH (21:13)
[2018-09-06] MEDS: ACETAMINOPHEN 325 MG TABLET (FP) PO PRN ×3 (02:31→14:27)
[2018-09-06] MEDS: ASPIRIN 81 MG CHEWABLE TABLETS PO SCH (09:49)
[2018-09-06] MEDS: PRENATAL VITAMINS W/ FOLIC ACID TABLET (FP) PO SCH (09:49)
[2018-09-06] MEDS: GABAPENTIN 300 MG CAPSULE (FP) PO SCH ×4 (09:49→21:15)
[2018-09-06] MEDS: BUDESONIDE/FORMETEROL FUMARATE 160/4.5 mcg INHALER IH SCH ×2 (09:50→21:16)
[2018-09-06] MEDS: CHLORHEXIDINE GLUCONATE 118 ML MOUTHWASH MM SCH ×2 (09:50→21:15)
[2018-09-06] MEDS: TIOTROPIUM BROMIDE 2.5 MCG (SPIRIVA) RESPIMAT INHALER IH SCH (09:50)
[2018-09-06] MEDS: MELATONIN 5 MG TABLETS PO PRN (21:15)
[2018-09-06] MEDS: THIAMINE HCL 100 MG TABLET (FP) PO SCH (21:15)
[2018-09-07] MEDS: ACETAMINOPHEN 325 MG TABLET (FP) PO PRN ×2 (01:46→08:52)
[2018-09-07] MEDS: ASPIRIN 81 MG CHEWABLE TABLETS PO SCH (09:46)
[2018-09-07] MEDS: GABAPENTIN 300 MG CAPSULE (FP) PO SCH ×4 (09:46→21:15)
[2018-09-07] MEDS: PRENATAL VITAMINS W/ FOLIC ACID TABLET (FP) PO SCH (09:46)
[2018-09-07] MEDS: TIOTROPIUM BROMIDE 2.5 MCG (SPIRIVA) RESPIMAT INHALER IH SCH (09:47)
[2018-09-07] MEDS: BUDESONIDE/FORMETEROL FUMARATE 160/4.5 mcg INHALER IH SCH ×2 (09:47→21:16)
[2018-09-07] MEDS: NICOTINE 14 MG/24 HOURS TOPICAL PATCH TD PRN (09:51)
--- NOTE | 2018-09-07 10:22 | PN ---
[facility] Progress Note Note: PT C/O 'BACK PAIN,LEGS AND PAIN SHOOTS DOWN TO BOTTOM OF MY HEELS, 9 ON A SCALE OF 10". REPORTS PAIN ESPECIALLY WHEN STANDING UP AND LAYING DOWN. PT STATES HE IS ON GABAPENTIN DUE TO NECK FRACTURE FROM MOVING FURNITURE THAT FELL ON MY FACE. HAD A NECK BRACE FROM MARCH 2018 TO JULY 2018. "I MISSED MY APPOINTMENT ON 07/23/18 WITH [facility] FOR PULMONARY AND PAIN SPECIALIST BUT WAS GETTING HIGH. THEY WERE SUPPOSED TO GIVE ME A PRIMARY PROVIDER AND PAIN MANAGEMENT BUT I DIDN'T GO. BUT I WILL MAKE APPOINTMENT TO GO, I'M SOBER NOW". PT REPORTS HE IS A AND HAS [employer] FOR MEDICAL MANAGEMENT. PT IS SCHEDULED FOR DISCHARGE ON 09/10/18 AND IS PLANNING TO FOLLOW UP AT [facility] ON 09/11/18 AFTER DISCHARGE. Vital Signs (72 hours) 09/05/18 09/05/18 09/05/18 00:30 03:30 06:27 Temperature 98.3 F Pulse Rate 56 L Respiratory 18 18 18 Rate Blood Pressure 124/74 09/06/18 09/06/18 09/06/18 00:30 03:30 07:01 Temperature 98.4 F Pulse Rate 54 L Respiratory 18 18 18 Rate Blood Pressure 127/72 09/07/18 09/07/18 09/07/18 00:30 03:30 06:44 Temperature 97.2 F L Pulse Rate 50 L Respiratory 18 18 18 Rate Blood Pressure 129/68 NAD A:S/P NECK TRUAMA CHRONIC BACK PAIN SCIATIC NERVE PAIN PLAN:FLEXERIL 5 MG PO NOW LIDOCAINE PATCH 5% DIRECTED PT WILL FOLLOW UP WITH MEDICAL MANAGEMENT INDICATED ABOVE AFTER DISCHARGE ON 09/10/18.
[2018-09-07] MEDS ORDERED: CYCLOBENZAPRINE HCL 5 MG TABLET PO ONE (10:30)
[2018-09-07] MEDS: LIDOCAINE 5% TOPICAL PATCH TP SCH (11:07)
[2018-09-07] MEDS: CHLORHEXIDINE GLUCONATE 118 ML MOUTHWASH MM SCH ×2 (11:08→21:15)
[2018-09-07] MEDS: CYCLOBENZAPRINE HCL 10 MG TABLET (FP) PO SCH ×2 (14:29→21:15)
[2018-09-07] MEDS: LIDOCAINE PATCH REMOVAL MC SCH (21:15)
[2018-09-07] MEDS: MELATONIN 5 MG TABLETS PO PRN (21:15)
[2018-09-07] MEDS: THIAMINE HCL 100 MG TABLET (FP) PO SCH (21:15)
[2018-09-08] MEDS: ACETAMINOPHEN 325 MG TABLET (FP) PO PRN ×3 (02:07→14:33)
[2018-09-08] MEDS: CYCLOBENZAPRINE HCL 10 MG TABLET (FP) PO SCH ×3 (06:19→21:10)
[2018-09-08] MEDS: GABAPENTIN 300 MG CAPSULE (FP) PO SCH ×4 (09:50→21:10)
[2018-09-08] MEDS: BUDESONIDE/FORMETEROL FUMARATE 160/4.5 mcg INHALER IH SCH ×2 (09:50→21:11)
[2018-09-08] MEDS: CHLORHEXIDINE GLUCONATE 118 ML MOUTHWASH MM SCH ×2 (09:50→21:11)
[2018-09-08] MEDS: TIOTROPIUM BROMIDE 2.5 MCG (SPIRIVA) RESPIMAT INHALER IH SCH (09:50)
[2018-09-08] MEDS: LIDOCAINE 5% TOPICAL PATCH TP SCH (09:50)
[2018-09-08] MEDS: PRENATAL VITAMINS W/ FOLIC ACID TABLET (FP) PO SCH (09:50)
[2018-09-08] MEDS: ASPIRIN 81 MG CHEWABLE TABLETS PO SCH (09:50)
[2018-09-08] MEDS: LIDOCAINE PATCH REMOVAL MC SCH (21:10)
[2018-09-08] MEDS: MELATONIN 5 MG TABLETS PO PRN (21:10)
[2018-09-08] MEDS: THIAMINE HCL 100 MG TABLET (FP) PO SCH (21:12)
[2018-09-09] MEDS: ACETAMINOPHEN 325 MG TABLET (FP) PO PRN ×2 (01:48→15:14)
[2018-09-09] MEDS: CYCLOBENZAPRINE HCL 10 MG TABLET (FP) PO SCH ×3 (06:33→21:12)
[2018-09-09 06:44] VITALS: PULSE 56
[2018-09-09] MEDS: ASPIRIN 81 MG CHEWABLE TABLETS PO SCH (09:45)
[2018-09-09] MEDS: PRENATAL VITAMINS W/ FOLIC ACID TABLET (FP) PO SCH (09:45)
[2018-09-09] MEDS: GABAPENTIN 300 MG CAPSULE (FP) PO SCH ×4 (09:45→21:12)
[2018-09-09] MEDS: TIOTROPIUM BROMIDE 2.5 MCG (SPIRIVA) RESPIMAT INHALER IH SCH (09:46)
[2018-09-09] MEDS: LIDOCAINE 5% TOPICAL PATCH TP SCH (09:46)
[2018-09-09] MEDS: BUDESONIDE/FORMETEROL FUMARATE 160/4.5 mcg INHALER IH SCH ×2 (09:46→21:13)
[2018-09-09] MEDS: CHLORHEXIDINE GLUCONATE 118 ML MOUTHWASH MM SCH ×2 (09:47→21:14)
[2018-09-09] MEDS: THIAMINE HCL 100 MG TABLET (FP) PO SCH (21:12)
[2018-09-09] MEDS: MELATONIN 5 MG TABLETS PO PRN (21:13)
[2018-09-09] MEDS: LIDOCAINE PATCH REMOVAL MC SCH (21:14)
[2018-09-10] MEDS: ACETAMINOPHEN 325 MG TABLET (FP) PO PRN ×2 (01:29→07:08)
[2018-09-10] MEDS: CYCLOBENZAPRINE HCL 10 MG TABLET (FP) PO SCH (07:08)
[2018-09-10 07:20] VITALS: BP 122/76; TEMP 97.4
--- NOTE | 2018-09-10 09:47 | PN ---
[facility] Progress Note Note: PT COMPLETED REHAB AND DISCHARGED TODAY. PT WILL FOLLOW UP WITH CD AFTERCARE AND MEDICAL MANAGEMENT RECOMMENDED AND PLANNED(SEE NOTE OF 09/07/18) PT IS ALERT O X 3. DENIES S/H/I. COURTESY RX BELOW ELECTRONICALLY SENT TO PT'S PHARMACY IN [facility] FOR [facility]QUIPMENT INSPECTOR. Home Medications Medication Instructions Recorded Aspirin [ASA -] 81 mg PO DAILY #30 tab.chew 09/10/18 Budesonide/Formeterol Fumarate 1 inh PO BID #1 inhaler 09/10/18 [SYMBICORT 160/4.5mcg -] Gabapentin [Neurontin -] 300 mg PO QID 14 Days capsule 09/10/18 Tiotropium [place] [Spiriva] 1 inh PO DAILY #1 cap.w.dev 09/10/18 Vital Signs (72 hours) 09/08/18 09/08/18 09/09/18 03:30 07:09 00:30 Temperature 97.8 F Pulse Rate 60 Respiratory 18 18 18 Rate Blood Pressure 119/61 09/09/18 09/09/18 09/10/18 03:30 06:42 00:30 Temperature 98.0 F Pulse Rate 56 L Respiratory 18 18 18 Rate Blood Pressure 127/73 09/10/18 09/10/18 03:30 07:20 Temperature 97.4 F L Pulse Rate 56 L Respiratory 18 18 Rate Blood Pressure 122/76 NAD MEDICALLY STABLE. PLAN:FOLLOW UP WITH CD AFTERCARE/MEDICAL APPOINTMENT SCHEDULED. Current Active Problems Problem Status Onset Alcohol dependence Chronic Asthma Chronic COPD (chronic obstructive pulmonary disease) Chronic Cocaine dependence Chronic Neck pain Chronic Nicotine dependence Chronic
[2018-09-10] MEDS: ASPIRIN 81 MG CHEWABLE TABLETS PO SCH (10:03)
[2018-09-10] MEDS: GABAPENTIN 300 MG CAPSULE (FP) PO SCH (10:03)
[2018-09-10] MEDS: LIDOCAINE 5% TOPICAL PATCH TP SCH (10:03)
[2018-09-10] MEDS: BUDESONIDE/FORMETEROL FUMARATE 160/4.5 mcg INHALER IH SCH (10:03)
[2018-09-10] MEDS: PRENATAL VITAMINS W/ FOLIC ACID TABLET (FP) PO SCH (10:03)
[2018-09-10] MEDS: TIOTROPIUM BROMIDE 2.5 MCG (SPIRIVA) RESPIMAT INHALER IH SCH (10:04)
[2018-09-10] MEDS: CHLORHEXIDINE GLUCONATE 118 ML MOUTHWASH MM SCH (10:04)
== END 2018-09-10 10:50 | disposition home or self-care (01) | DRG 772 ==
LOC: YASAS 15:30 → Y5N 15:32
PROVIDERS: ADMIT Neuromusculoskeletal Medicine & OMM; ATTEND Neuromusculoskeletal Medicine & OMM
PROC: HZ42ZZZ Group Counseling for Substance Abuse Treatment, Cognitive-Behavioral (ICD-10-PCS; principal; 2018-08-27)
DX: F10.20 Alcohol dependence, uncomplicated (principal); F14.20 Cocaine dependence, uncomplicated; F17.210 Nicotine dependence, cigarettes, uncomplicated; J44.9 Chronic obstructive pulmonary disease, unspecified; M54.2 Cervicalgia; M54.42 Lumbago with sciatica, left side; M54.41 Lumbago with sciatica, right side; G89.29 Other chronic pain; K06.8 Other specified disorders of gingiva and edentulous alveolar ridge

== ENCOUNTER 2018-10-09 09:35 | Inpatient (IN) | payer OTHER ==
[2018-10-09 10:35] VITALS: BMI 24.3
--- NOTE | 2018-10-09 11:36 | HP ---
CIWA Score Nausea/Vomitin Muscle Tremors: 2 Anxiety: 2 Agitation: 2 Paroxysmal Sweats: 2 Orientation: 0-Oriented Tacttile Disturbances: 1-Very Mild Itch/Numbness Auditory Disturbances: 1-Very Mild Visual Disturbances: 0-None Headache: 2-Mild CIWA-Ar Total Score: 14 - Admission Criteria OASAS Guidelines: Admission for Medically Managed Detox: Requires at least one of the followin. CIWA greater than 12 2. Seizures within the past 24 hours 3. Delirium tremens within the past 24 hours 4. Hallucinations within the past 24 hours 5. Acute intervention needed for co occurring medical disorder 6. Acute intervention needed for co occurring psychiatric disorder 7. Severe withdrawal that cannot be handled at a lower level of care (continued vomiting, continued diarrhea, abnormal vital signs) requiring intravenous medication and/or fluids 8. Admission ROS BHS - HPI Chief Complaint: i need help to stop drinking alcohol and cocaine Allergies/Adverse Reactions: Allergies Allergy/AdvReac Type Severity Reaction Status Date / Time ibuprofen [From Motrin] Allergy Severe Difficulty Verified 10/09/18 10:28 Breathing History of Present Illness: this 57 years old male with alcohol and cocaine dependence seeking detox, withdrawal symptom, multiple admissions in detox and relapse last detox [facility] 08/23/18 to 08/27/18 rehab 08/27/18 to 09/10/18 weight loss syncope alcohol related nicotine dependence 5 to 6 cigarette,requesting patch longest sobriety 2 years plan for product safety professional rehab fx of c2 to c7 in 04/05 [facility] carpal tunnel surgery in 1992 left Exam Limitations: No Limitations - Ebola screening Have you traveled outside of the country in the last 21 days: No Have you had contact with anyone from an Ebola affected area: No Do you have a fever: No - Review of Systems Constitutional: Loss of Appetite, Malaise, Night Sweats, Changes in sleep, Unintentional Wgt. Loss EENT: reports: Nose Congestion Respiratory: reports: Wheezing, Other (history of asthma and copd) Cardiac: reports: No Symptoms Reported GI: reports: Nausea, Poor Appetite, Vomiting, Indigestion : reports: No Symptoms Reported Musculoskeletal: reports: Back Pain, Muscle Pain Integumentary: reports: Dryness Neuro: reports: Headache, Tremors Endocrine: reports: No Symptoms Reported Hematology: reports: No Symptoms Reported Psychiatric: reports: No Sypmtoms Reported, Judgement Intact, Mood/Affect Appropiate, Orientated x3 Other Systems: Reviewed and Negative Patient History - Patient Medical History Hx Asthma: Yes (on albuterol and symbicort) Hx Chronic Obstructive Pulmonary Disease (COPD): Yes (on albuterol and symbicort ) Hx Cancer: No Hx Cardiac Disorders: No Hx Congestive Heart Failure: No Hx Hypertension: No Hx Hypercholesterolemia: No Hx Pacemaker: No HX Cerebrovascular Accident: No Hx Seizures: No Hx Dementia: No Hx Diabetes: No Hx Gastrointestinal Disorders: No Hx Liver Disease: No Hx Genitourinary Disorders: No Hx Sexually Transmitted Disorders: No Hx Renal Disease (ESRD): No Hx Thyroid Disease: No Hx Human Immunodeficiency Virus (HIV): No (last 07/07 negative) Hx Hepatitis C: No Hx Depression: No Hx Suicide Attempt: No Hx Bipolar Disorder: No Hx Schizophrenia: No Other Medical History: no suicidal,no homicidal - Patient Surgical History Past Surgical History: Yes Hx Neurologic Surgery: No Hx Cataract Extraction: No Hx Cardiac Surgery: No Hx Lung Surgery: No Hx Breast Surgery: No Hx Breast Biopsy: No Hx Abdominal Surgery: Yes (incarcerated hernia repair X2 in 07/05 [facility]) Hx Appendectomy: No Hx Cholecystectomy: No Hx Genitourinary Surgery: No Hx Section: No Hx Orthopedic Surgery: No Hx Hysterectomy: No Other Surgical History: surgery for carpal tunnel left wrist,fx of c2 to c7 Anesthesia Reaction: No - PPD History Previous Implant?: Yes Documented Results: Negative w/proof Implanted On Prior [facility] Admission?: Yes Date: 05/23/18 Results: 0MM PPD to be Administered?: No - Smoking Cessation Smoking history: Current every day smoker Have you smoked in the past 12 months: Yes Aproximately how many cigarettes per day: 5 Cigars Per Day: 0 Hx Chewing Tobacco Use: No Initiated information on smoking cessation: Yes 'Breaking Loose' booklet given: 10/09/18 - Substance & Tx. History Hx Alcohol Use: Yes Substance Use Type: Alcohol, Cocaine Hx Substance Use Treatment: Yes ([facility] 08/23/18 to 08/27/18,rehab 08/27/18 to ) - Substances abused Alcohol Substance route: Oral Frequency: Daily Amount used: 2 six pk beers ( 12 oz cans ) Age of first use: 16 Date of last use: 10/09/18 Cocaine Substance route: Smoking Frequency: Daily Amount used: $150 Age of first use: 37 Date of last use: 10/09/18 Crack Substance route: Smoking Frequency: Daily Amount used: $150 Age of first use: 37 Date of last use: 10/09/18 Family Disease History - Family Disease History Family History: Denies Admission Physical Exam BHS - Vital Signs Vital Signs: Vital Signs - 24 hr 10/09/18 10/09/18 10:29 10:51 Temperature 98 F 98 F Pulse Rate 73 73 Respiratory 18 18 Rate Blood Pressure 144/83 144/83 - Physical General Appearance: Yes: Moderate Distress, Tremorous, Sweating, Anxious HEENTM: Yes: Normal ENT Inspection, PRISCILLA, Pharynx Normal Respiratory: Yes: No Respiratory Distress, Wheezing Neck: Yes: Within Normal Limits, Supple, Trachea in good position Breast: Yes: Within Normal Limits Cardiology: Yes: Within Normal Limits, Regular Rhythm, Regular Rate, S1, S2 Abdominal: Yes: Within Normal Limits, Normal Bowel Sounds, Non Tender, Flat Genitourinary: Yes: Within Normal Limits Back: Yes: Muscle Spasm Musculoskeletal: Yes: full range of Motion, Back pain, Muscle Pain Extremities: Yes: Within Normal Limits, Normal Range of Motion, Tremors Neurological: Yes: wire bender II-XII NML intact, Fully Oriented, Alert, Motor Strength 5/5 Integumentary: Yes: Dry Lymphatic: Yes: Within Normal Limits - Diagnostic (1) Alcohol dependence with uncomplicated withdrawal Current Visit: Yes Status: Acute (2) Asthma Current Visit: No Status: Chronic Qualifiers: Asthma severity: unspecified severity Asthma complication type: unspecified (3) COPD (chronic obstructive pulmonary disease) Current Visit: No Status: Chronic Qualifiers: Emphysema type: unspecified (4) Cocaine dependence Current Visit: No Status: Chronic Qualifiers: Substance use status: uncomplicated Qualified Code(s): F14.20 - Cocaine dependence, uncomplicated (5) Nicotine dependence Current Visit: No Status: Chronic Qualifiers: Nicotine product type: cigarettes Substance use status: uncomplicated Qualified Code(s): F17.210 - Nicotine dependence, cigarettes, uncomplicated (6) Dehydration Current Visit: Yes Status: Acute (7) History of cervical fracture Current Visit: Yes Status: Acute (8) History of carpal tunnel surgery Current Visit: Yes Status: Acute (9) History of carpal tunnel surgery of left wrist Current Visit: Yes Status: Acute (10) Hx of inguinal hernia surgery Current Visit: Yes Status: Acute (11) Neuropathy Current Visit: Yes Status: Acute Cleared for Admission S - Detox or Rehab [facility] Level of Care: Medically Managed Detox Regimen/Protocol: Librium Breathalyzer - Breathalyzer Breathalyzer: 0 Urine Drug Screen - Test Device Lot number: [id number] Expiration date: 05/18/20 - Control Is test valid?: Yes - Results Drug screen NEGATIVE: No Urine drug screen results: ANGUS-Cocaine Inpatient Rehab Admission - Rehab Decision to Admit Inpatient rehab admission?: No
[2018-10-09] MEDS ORDERED: ACETAMINOPHEN 325 MG TABLET (FP) PO PRN ×2 (11:45)
[2018-10-09] MEDS ORDERED: BISMUTH SUBSALICYLATE 524 MG/30 ML UD PO PRN (11:45)
[2018-10-09] MEDS ORDERED: MAG HYDROX/AL HYDROX/SIMETH 30 ML UNIT-DOSE CUP PO PRN (11:45)
[2018-10-09] MEDS ORDERED: MAGNESIUM CITRATE 300 ML BOTTLE PO PRN (11:45)
[2018-10-09] MEDS ORDERED: MELATONIN 5 MG TABLETS PO PRN (11:45)
[2018-10-09] MEDS ORDERED: chlordiazePOXIDE HCL 25 MG CAPSULE PO PRN (11:45)
[2018-10-09] MEDS ORDERED: MENTHOL/PHENOL 1 EACH UD MM PRN (11:45)
[2018-10-09] MEDS ORDERED: MAGNESIUM HYDROX 2400MG/30ML ORAL SUSPENSION 30 ML CUP PO PRN (11:45)
[2018-10-09] MEDS ORDERED: hydrOXYzine PAMOATE 25 MG CAPSULE (FP) PO PRN (11:45)
[2018-10-09] MEDS ORDERED: IBUPROFEN 400 MG TABLET (FP) PO PRN (11:45)
[2018-10-09] MEDS ORDERED: ALBUTEROL SO4 2.5/IPRATROPIUM 0.5 INH SOL 3 ML VIAL.NEB. NEB PRN ×2 (11:54→19:30)
[2018-10-09] MEDS ORDERED: predniSONE 20 MG TABLET (UD) PO ONE (12:55)
[2018-10-09] MEDS ORDERED: ALBUTEROL SO4 0.5 % INH SOLN 2.5 MG/0.5 ML VIAL.NEB. NEB PRN (13:05)
[2018-10-09] MEDS: GABAPENTIN 300 MG CAPSULE (FP) PO SCH ×3 (13:10→22:38)
[2018-10-09] MEDS: NICOTINE 21 MG/24 HOURS TOPICAL PATCH TD SCH (13:12)
[2018-10-09] MEDS: BUDESONIDE/FORMETEROL FUMARATE 160/4.5 mcg INHALER IH SCH ×2 (13:20→22:30)
[2018-10-09 15:06] LABS: HEMATOCRIT 39.6 % (35.4-49); HEMOGLOBIN 12.9 GM/dL (11.7-16.9); MCH 28.1 pg (25.7-33.7); MCHC 32.7 g/dl (32.0-35.9); MEAN PLT VOLUME 8.3 fl (7.5-11.1); PLATELET COUNT 276 K/MM3 (134-434); RDW 15.4 % (11.9-15.9); WHITE BLOOD COUNT 4.9 K/mm3 (4.0-10.0)
[2018-10-09 15:16] LABS: ALBUMIN 3.3 g/dl (3.4-5.0); ALK PHOS 89 U/L (45-117); ANION GAP 6 MMOL/L (8-16); BILIRUBIN,TOTAL 0.2 mg/dL (0.2-1); BLOOD UREA NITROGEN 14 mg/dL (7-18); CHLORIDE 106 mmol/L (98-107); CO2 27 mmol/L (21-32); GLUCOSE,RANDOM 126 mg/dL (74-106); POTASSIUM 3.6 mmol/L (3.5-5.1); SGOT/AST 21 U/L (15-37); SGPT/ALT 29 U/L (13-61); SODIUM 139 mmol/L (136-145); TOT PROT 6.8 g/dl (6.4-8.2)
[2018-10-09] MEDS: TIOTROPIUM BROMIDE 2.5 MCG (SPIRIVA) RESPIMAT INHALER IH SCH (15:30)
[2018-10-09] MEDS: ALBUTEROL SO4 8 GM HFA INHALER IH PRN (19:06)
[2018-10-09] MEDS: chlordiazePOXIDE HCL 25 MG CAPSULE PO SCH (22:38)
[2018-10-09] MEDS: THIAMINE HCL 100 MG TABLET (FP) PO SCH (22:38)
[2018-10-10] MEDS: chlordiazePOXIDE HCL 25 MG CAPSULE PO SCH ×4 (06:24→22:16)
[2018-10-10] MEDS ORDERED: predniSONE 10 MG TABLET (UD) PO ONE (10:00)
[2018-10-10] MEDS: PRENATAL VITAMINS W/ FOLIC ACID TABLET (FP) PO SCH (10:44)
[2018-10-10] MEDS: ASPIRIN 81 MG CHEWABLE TABLETS PO SCH (10:44)
[2018-10-10] MEDS: GABAPENTIN 300 MG CAPSULE (FP) PO SCH ×4 (10:44→22:16)
[2018-10-10] MEDS: BUDESONIDE/FORMETEROL FUMARATE 160/4.5 mcg INHALER IH SCH ×2 (10:46→22:28)
[2018-10-10] MEDS: NICOTINE 21 MG/24 HOURS TOPICAL PATCH TD SCH (10:46)
[2018-10-10] MEDS: TIOTROPIUM BROMIDE 2.5 MCG (SPIRIVA) RESPIMAT INHALER IH SCH (10:46)
--- NOTE | 2018-10-10 11:05 | PN ---
S CIWA - CIWA Score Nausea/Vomitin-Mild Nausea/No Vomiting Muscle Tremors: 1-None Visible, but [place] Anxiety: 1-Mildly Anxious Agitation: 1-Slight > Activity Paroxysmal Sweats: 3 Orientation: 0-Oriented Tacttile Disturbances: 0-None Auditory Disturbances: 0-None Visual Disturbances: 0-None Headache: 1-Very Mild CIWA-Ar Total Score: 8 BHS Progress Note (SOAP) Subjective: pt with c/o sweating, but states medication is helping with withdrawal Sx pt states would like minced/pureed food, also would like to have prn nebulizer in case of asthma flare like he had yesterday O: Vital Signs - 24 hr 10/09/18 10/09/18 10/09/18 12:55 17:08 21:42 Temperature 98.3 F 98.8 F Pulse Rate 71 77 77 Respiratory 20 20 16 Rate Blood Pressure 148/67 108/58 L 127/78 10/10/18 10/10/18 10/10/18 00:30 03:00 03:30 Temperature 98.2 F Pulse Rate 69 Respiratory 18 18 18 Rate Blood Pressure 110/70 10/10/18 10:21 Temperature 98.8 F Pulse Rate 74 Respiratory 18 Rate Blood Pressure 114/67 Laboratory Tests 10/09/18 10/09/18 10/09/18 11:45 11:45 11:45 WBC 4.9 RBC 4.60 Hgb 12.9 Hct 39.6 MCV 86.0 MCH 28.1 MCHC 32.7 RDW 15.4 Plt Count 276 MPV 8.3 Sodium 139 Potassium 3.6 Chloride 106 Carbon Dioxide 27 Anion Gap 6 L BUN 14 Creatinine 1.0 Creat Clearance w eGFR 77.30 Random Glucose 126 H Calcium 9.0 Total Bilirubin 0.2 AST 21 ALT 29 Alkaline Phosphatase 89 Total Protein 6.8 Albumin 3.3 L RPR Titer Nonreactive a/p: continue alcohol detox protocol prn nebulizer pureed foods
[2018-10-10] MEDS ORDERED: ALBUTEROL SO4 2.5/IPRATROPIUM 0.5 INH SOL 3 ML VIAL.NEB. NEB PRN (11:06)
[2018-10-10] MEDS: METHOCARBAMOL 500 MG TABLET PO PRN (13:50)
[2018-10-10] MEDS: THIAMINE HCL 100 MG TABLET (FP) PO SCH (22:16)
[2018-10-10] MEDS: ALBUTEROL SO4 0.083% IH SOL 2.5 MG/3 ML VIAL.NEB. NEB PRN (22:58)
[2018-10-11] MEDS: chlordiazePOXIDE HCL 25 MG CAPSULE PO SCH ×3 (05:15→17:34)
[2018-10-11] MEDS ORDERED: predniSONE 20 MG TABLET (UD) PO ONE (10:00)
[2018-10-11] MEDS: GABAPENTIN 300 MG CAPSULE (FP) PO SCH ×4 (10:11→22:26)
[2018-10-11] MEDS: PRENATAL VITAMINS W/ FOLIC ACID TABLET (FP) PO SCH (10:11)
[2018-10-11] MEDS: ASPIRIN 81 MG CHEWABLE TABLETS PO SCH (10:11)
[2018-10-11] MEDS: BUDESONIDE/FORMETEROL FUMARATE 160/4.5 mcg INHALER IH SCH ×2 (10:12→22:32)
[2018-10-11] MEDS: TIOTROPIUM BROMIDE 2.5 MCG (SPIRIVA) RESPIMAT INHALER IH SCH (10:12)
[2018-10-11] MEDS: NICOTINE 21 MG/24 HOURS TOPICAL PATCH TD SCH (10:12)
[2018-10-11] MEDS: METHOCARBAMOL 500 MG TABLET PO PRN (10:14)
[2018-10-11] MEDS ORDERED: LIDOCAINE 5% TOPICAL PATCH TP ONE (13:56)
--- NOTE | 2018-10-11 14:01 | PN ---
[facility] CIWA - CIWA Score Nausea/Vomitin-No Nausea/No Vomiting Muscle Tremors: 3 Anxiety: 2 Agitation: 2 Paroxysmal Sweats: 3 Orientation: 0-Oriented Tacttile Disturbances: 0-None Auditory Disturbances: 0-None Visual Disturbances: 0-None Headache: 0-None Present CIWA-Ar Total Score: 10 S Progress Note (SOAP) Subjective: back pain sweats shakes interrupted sleep Objective: 10/11/18 14:00 Vital Signs Temperature 98.8 F 10/11/18 09:05 Pulse Rate 74 10/11/18 09:05 Respiratory Rate 18 10/11/18 09:05 Blood Pressure 117/63 10/11/18 09:05 O2 Sat by Pulse Oximetry (%) Laboratory Tests 10/09/18 10/09/18 10/09/18 11:45 11:45 11:45 WBC 4.9 RBC 4.60 Hgb 12.9 Hct 39.6 MCV 86.0 MCH 28.1 MCHC 32.7 RDW 15.4 Plt Count 276 MPV 8.3 Sodium 139 Potassium 3.6 Chloride 106 Carbon Dioxide 27 Anion Gap 6 L BUN 14 Creatinine 1.0 Creat Clearance w eGFR 77.30 Random Glucose 126 H Calcium 9.0 Total Bilirubin 0.2 AST 21 ALT 29 Alkaline Phosphatase 89 Total Protein 6.8 Albumin 3.3 L RPR Titer Nonreactive aaox3 ambulating no acute distress Assessment: 10/11/18 14:00 withdrawal sx Plan: continue detox increase fluids lidocaine patch motrin/tylenol prn
[2018-10-11] MEDS ORDERED: LIDOCAINE PATCH REMOVAL MC SCH (22:00)
[2018-10-11] MEDS: chlordiazePOXIDE HCL 10 MG CAPSULE PO SCH (22:26)
[2018-10-11] MEDS: THIAMINE HCL 100 MG TABLET (FP) PO SCH (22:26)
[2018-10-11] MEDS: ALBUTEROL SO4 0.083% IH SOL 2.5 MG/3 ML VIAL.NEB. NEB PRN (22:28)
[2018-10-11] MEDS ORDERED: chlordiazePOXIDE HCL 10 MG CAPSULE PO PRN (23:00)
[2018-10-12] MEDS: chlordiazePOXIDE HCL 10 MG CAPSULE PO SCH ×3 (05:19→17:53)
[2018-10-12 09:55] LABS: URINE APPEARANCE CLEAR; URINE BILIRUBIN NEGATIVE (NEGATIVE); URINE COLOR YELLOW; URINE GLUCOSE (UA) NEGATIVE (NEGATIVE); URINE KETONE TRACE (NEGATIVE); URINE LEUK ESTERASE NEGATIVE (NEGATIVE); URINE NITRITE NEGATIVE (NEGATIVE); URINE PROTEIN NEGATIVE (NEGATIVE)
[2018-10-12] MEDS ORDERED: LIDOCAINE 5% TOPICAL PATCH TP SCH (10:00)
[2018-10-12] MEDS ORDERED: predniSONE 10 MG TABLET (UD) PO ONE (10:00)
[2018-10-12] MEDS: PRENATAL VITAMINS W/ FOLIC ACID TABLET (FP) PO SCH (10:55)
[2018-10-12] MEDS: ASPIRIN 81 MG CHEWABLE TABLETS PO SCH (10:55)
[2018-10-12] MEDS: NICOTINE 21 MG/24 HOURS TOPICAL PATCH TD SCH (10:56)
[2018-10-12] MEDS: BUDESONIDE/FORMETEROL FUMARATE 160/4.5 mcg INHALER IH SCH (10:56)
[2018-10-12] MEDS: TIOTROPIUM BROMIDE 2.5 MCG (SPIRIVA) RESPIMAT INHALER IH SCH (10:56)
[2018-10-12] MEDS: GABAPENTIN 300 MG CAPSULE (FP) PO SCH ×3 (10:56→17:53)
--- NOTE | 2018-10-12 14:11 | PN ---
S CIWA - CIWA Score Nausea/Vomitin-No Nausea/No Vomiting Muscle Tremors: 1-None Visible, but [place] Anxiety: 0-No Anxiety, at Ease Agitation: 1-Slight > Activity Paroxysmal Sweats: No Perspiration Orientation: 0-Oriented Tacttile Disturbances: 0-None Auditory Disturbances: 0-None Visual Disturbances: 0-None Headache: 0-None Present CIWA-Ar Total Score: 2 BHS Progress Note (SOAP) Subjective: pt almost completed alcohol detox protocol- would like to go to rehab today if bed available O: Vital Signs - 24 hr 10/11/18 10/11/18 10/11/18 14:26 17:01 21:42 Temperature 98.1 F 98.1 F 97.7 F Pulse Rate 71 74 72 Respiratory 18 18 18 Rate Blood Pressure 118/67 125/65 119/93 10/12/18 10/12/18 10/12/18 00:30 03:30 06:00 Temperature 98.2 F Pulse Rate 79 Respiratory 18 18 18 Rate Blood Pressure 122/66 10/12/18 10/12/18 09:14 13:02 Temperature 98.2 F 98.1 F Pulse Rate 68 76 Respiratory 18 18 Rate Blood Pressure 120/66 100/65 Laboratory Tests 10/09/18 10/09/18 10/09/18 11:45 11:45 11:45 WBC 4.9 RBC 4.60 Hgb 12.9 Hct 39.6 MCV 86.0 MCH 28.1 MCHC 32.7 RDW 15.4 Plt Count 276 MPV 8.3 Sodium 139 Potassium 3.6 Chloride 106 Carbon Dioxide 27 Anion Gap 6 L BUN 14 Creatinine 1.0 Creat Clearance w eGFR 77.30 Random Glucose 126 H Calcium 9.0 Total Bilirubin 0.2 AST 21 ALT 29 Alkaline Phosphatase 89 Total Protein 6.8 Albumin 3.3 L Urine Color Urine Appearance Urine pH Ur Specific [place] Urine Protein Urine Glucose (UA) Urine Ketones Urine Blood Urine Nitrite Urine Bilirubin Urine Urobilinogen Ur Leukocyte Esterase RPR Titer Nonreactive 10/12/18 07:00 WBC RBC Hgb Hct MCV MCH MCHC RDW Plt Count MPV Sodium Potassium Chloride Carbon Dioxide Anion Gap BUN Creatinine Creat Clearance w eGFR Random Glucose Calcium Total Bilirubin AST ALT Alkaline Phosphatase Total Protein Albumin Urine Color Yellow Urine Appearance Clear Urine pH 5.0 Ur Specific [place] 1.026 Urine Protein Negative Urine Glucose (UA) Negative Urine Ketones Trace H Urine Blood Negative Urine Nitrite Negative Urine Bilirubin Negative Urine Urobilinogen 1.0 Ur Leukocyte Esterase Negative RPR Titer a/p: continue detox protocol- d/c today or tomorrow to rehab
--- NOTE | 2018-10-12 16:38 | DS ---
[facility] Detox Discharge Summary Admission Date: 10/09/18 Discharge Date: 10/12/18 - History Present History: Alcohol Dependence, Cocaine Dependence Pertinent Past History: pt admitted for alcohol and cocaine dependence. Completed detox- going to rehab today - Physical Exam Results Vital Signs: Vital Signs Temperature 98.1 F 10/12/18 13:02 Pulse Rate 76 10/12/18 13:02 Respiratory Rate 18 10/12/18 13:02 Blood Pressure 100/65 10/12/18 13:02 O2 Sat by Pulse Oximetry (%) - Treatment Hospital Course: Detox Protocol Followed, Detoxed Safely, Responded well, Discharged Condition Good, Rehab Referral Accepted - Medication Discharge Medications: Ambulatory Orders Aspirin [ASA -] 81 mg PO DAILY #30 tab.chew 09/10/18 Budesonide/Formeterol Fumarate [SYMBICORT 160/4.5mcg -] 1 inh PO BID #1 inhaler 09/10/18 Gabapentin [Neurontin -] 300 mg PO QID 14 Days capsule 09/10/18 Tiotropium [place] [Spiriva] 1 inh PO DAILY #1 cap.w.dev 09/10/18 predniSONE [Deltasone -] 50 mg PO DAILY 10/09/18 - Diagnosis (1) Alcohol dependence with uncomplicated withdrawal Current Visit: Yes Status: Acute (2) Cocaine use disorder Current Visit: No Status: Chronic - AMA Did Patient Leave Against Medical Advice: No
[2018-10-12 17:13] VITALS: BP 141/74; PULSE 72; TEMP 96.2
[2018-10-12] MEDS: ALBUTEROL SO4 8 GM HFA INHALER IH PRN (17:53)
[2018-10-12] MEDS ORDERED: chlordiazePOXIDE HCL 10 MG CAPSULE PO SCH (23:00)
[2018-10-13] MEDS ORDERED: predniSONE 5 MG TABLET (UD) PO ONE (10:00)
== END 2018-10-12 18:26 | disposition other institution (70) | DRG 774 ==
LOC: YASAS 09:35 → Y6N 12:12
PROVIDERS: ADMIT Surgery; ATTEND Surgery
PROC: HZ2ZZZZ Detoxification Services for Substance Abuse Treatment (ICD-10-PCS; principal; 2018-10-09)
DX: F10.230 Alcohol dependence with withdrawal, uncomplicated (principal); F14.20 Cocaine dependence, uncomplicated; F17.213 Nicotine dependence, cigarettes, with withdrawal; G62.9 Polyneuropathy, unspecified; J45.909 Unspecified asthma, uncomplicated; J44.9 Chronic obstructive pulmonary disease, unspecified; E86.0 Dehydration; Z98.890 Other specified postprocedural states; Z88.8 Allergy status to other drugs, medicaments and biological substances
CPT/HCPCS: 36415; 80053; 81003; 85027; 86593; 94640

== ENCOUNTER 2018-10-12 18:58 | Inpatient (IN) | payer OTHER ==
--- NOTE | 2018-10-12 22:25 | HP ---
[facility] Rehab Assess/Revision - Admission History Admitted to Rehab [facility]: [facility] [place] Date of Admission to Rehab: 10/12/2018 - Vital signs Vital Signs: Vital Signs Period Temp Pulse Resp BP Sys/[place] Pulse Ox Last 24 Hr 97.0 F 72 18 125/71 - Findings Detox History & Physical reviewed: Yes Concur with findings: Yes Comments/Additional Findings: Patient just complete detox for alcohol use disorder w co-occurring cocaine dependence.Nicotine use disorder. Managed for acute asthmatic episode. Labs reviewed. Inpatient Rehab Admission - Rehab Decision to Admit Inpatient rehab admission?: Yes - Initial Determination Are CD services needed?: Yes Free of communicable disease: Yes Not in need of hospitalization: Yes - Rehab Admission Criteria Previous failed treatment: Yes Poor recovery environment: Yes Comorbidities: Yes Lacks judgement: No Patient is meeting Inpatient Rehab admission criteria:: Yes
[2018-10-12] MEDS ORDERED: MAGNESIUM HYDROX 2400MG/30ML ORAL SUSPENSION 30 ML CUP PO PRN (22:30)
[2018-10-12] MEDS ORDERED: LOPERAMIDE HCL 2 MG CAPSULE PO PRN (22:30)
[2018-10-12] MEDS ORDERED: MENTHOL/PHENOL 1 EACH UD MM PRN (22:30)
[2018-10-12] MEDS ORDERED: NICOTINE POLACRILEX 2 MG GUM BUC PRN (22:30)
[2018-10-12] MEDS ORDERED: guaiFENesin 200 MG/10 ML 10 ML UNIT-DOSE CUPS PO PRN (22:30)
[2018-10-12] MEDS ORDERED: MAGNESIUM CITRATE 300 ML BOTTLE PO PRN (22:30)
[2018-10-12] MEDS ORDERED: P-EPHED 60MG/TRIPROLIDI 2.5MG TABLET PO PRN (22:30)
[2018-10-12] MEDS ORDERED: ALBUTEROL SO4 0.083% IH SOL 2.5 MG/3 ML VIAL.NEB. NEB PRN (22:32)
[2018-10-12] MEDS: LIDOCAINE PATCH REMOVAL MC SCH (23:19)
[2018-10-13] MEDS: hydrOXYzine PAMOATE 50 MG CAPSULE (FP) PO PRN (02:17)
[2018-10-13] MEDS: ACETAMINOPHEN 325 MG TABLET (FP) PO PRN ×3 (02:17→22:17)
[2018-10-13] MEDS: TIOTROPIUM BROMIDE 2.5 MCG (SPIRIVA) RESPIMAT INHALER IH SCH (10:01)
[2018-10-13] MEDS: GABAPENTIN 300 MG CAPSULE (FP) PO SCH ×4 (10:02→22:16)
[2018-10-13] MEDS: ASPIRIN 81 MG CHEWABLE TABLETS PO SCH (10:02)
[2018-10-13] MEDS: NICOTINE 14 MG/24 HOURS TOPICAL PATCH TD SCH (10:02)
[2018-10-13] MEDS: BUDESONIDE/FORMETEROL FUMARATE 160/4.5 mcg INHALER IH SCH ×2 (10:02→22:15)
[2018-10-13] MEDS: LIDOCAINE 5% TOPICAL PATCH TP SCH (10:02)
[2018-10-13] MEDS: PRENATAL VITAMINS W/ FOLIC ACID TABLET (FP) PO SCH (10:02)
[2018-10-13] MEDS: LIDOCAINE PATCH REMOVAL MC SCH (22:14)
[2018-10-13] MEDS: THIAMINE HCL 100 MG TABLET (FP) PO SCH (22:15)
[2018-10-13] MEDS: MELATONIN 5 MG TABLETS PO PRN (22:17)
[2018-10-14] MEDS: NICOTINE 14 MG/24 HOURS TOPICAL PATCH TD SCH (10:08)
[2018-10-14] MEDS: PRENATAL VITAMINS W/ FOLIC ACID TABLET (FP) PO SCH (10:08)
[2018-10-14] MEDS: LIDOCAINE 5% TOPICAL PATCH TP SCH (10:08)
[2018-10-14] MEDS: GABAPENTIN 300 MG CAPSULE (FP) PO SCH ×4 (10:08→21:13)
[2018-10-14] MEDS: ASPIRIN 81 MG CHEWABLE TABLETS PO SCH (10:08)
[2018-10-14] MEDS: BUDESONIDE/FORMETEROL FUMARATE 160/4.5 mcg INHALER IH SCH ×2 (10:08→21:12)
[2018-10-14] MEDS: TIOTROPIUM BROMIDE 2.5 MCG (SPIRIVA) RESPIMAT INHALER IH SCH (10:09)
[2018-10-14] MEDS: ACETAMINOPHEN 325 MG TABLET (FP) PO PRN (13:14)
[2018-10-14] MEDS: THIAMINE HCL 100 MG TABLET (FP) PO SCH (21:12)
[2018-10-14] MEDS: LIDOCAINE PATCH REMOVAL MC SCH (21:13)
[2018-10-14] MEDS: hydrOXYzine PAMOATE 50 MG CAPSULE (FP) PO PRN (21:13)
[2018-10-14] MEDS: MELATONIN 5 MG TABLETS PO PRN (21:13)
[2018-10-15] MEDS: BUDESONIDE/FORMETEROL FUMARATE 160/4.5 mcg INHALER IH SCH ×2 (10:10→21:48)
[2018-10-15] MEDS: PRENATAL VITAMINS W/ FOLIC ACID TABLET (FP) PO SCH (10:10)
[2018-10-15] MEDS: NICOTINE 14 MG/24 HOURS TOPICAL PATCH TD SCH (10:10)
[2018-10-15] MEDS: TIOTROPIUM BROMIDE 2.5 MCG (SPIRIVA) RESPIMAT INHALER IH SCH (10:10)
[2018-10-15] MEDS: LIDOCAINE 5% TOPICAL PATCH TP SCH (10:10)
[2018-10-15] MEDS: ASPIRIN 81 MG CHEWABLE TABLETS PO SCH (10:10)
[2018-10-15] MEDS: GABAPENTIN 300 MG CAPSULE (FP) PO SCH ×4 (10:10→21:47)
[2018-10-15] MEDS: MELATONIN 5 MG TABLETS PO PRN (21:47)
[2018-10-15] MEDS: THIAMINE HCL 100 MG TABLET (FP) PO SCH (21:47)
[2018-10-15] MEDS: LIDOCAINE PATCH REMOVAL MC SCH (21:48)
[2018-10-16] MEDS: ACETAMINOPHEN 325 MG TABLET (FP) PO PRN ×3 (04:45→21:15)
[2018-10-16] MEDS ORDERED: PT OWN MED DRAWER 7, Y5N ONE (09:00)
[2018-10-16] MEDS: ASPIRIN 81 MG CHEWABLE TABLETS PO SCH (10:17)
[2018-10-16] MEDS: GABAPENTIN 300 MG CAPSULE (FP) PO SCH ×4 (10:17→21:14)
[2018-10-16] MEDS: LIDOCAINE 5% TOPICAL PATCH TP SCH (10:17)
[2018-10-16] MEDS: PRENATAL VITAMINS W/ FOLIC ACID TABLET (FP) PO SCH (10:17)
[2018-10-16] MEDS: TIOTROPIUM BROMIDE 2.5 MCG (SPIRIVA) RESPIMAT INHALER IH SCH (10:18)
[2018-10-16] MEDS: NICOTINE 14 MG/24 HOURS TOPICAL PATCH TD SCH (10:18)
[2018-10-16] MEDS: BUDESONIDE/FORMETEROL FUMARATE 160/4.5 mcg INHALER IH SCH ×2 (10:18→21:15)
[2018-10-16] MEDS: THIAMINE HCL 100 MG TABLET (FP) PO SCH (21:14)
[2018-10-16] MEDS: LIDOCAINE PATCH REMOVAL MC SCH (21:16)
[2018-10-17] MEDS: PRENATAL VITAMINS W/ FOLIC ACID TABLET (FP) PO SCH (10:15)
[2018-10-17] MEDS: GABAPENTIN 300 MG CAPSULE (FP) PO SCH ×4 (10:15→21:11)
[2018-10-17] MEDS: BUDESONIDE/FORMETEROL FUMARATE 160/4.5 mcg INHALER IH SCH ×2 (10:15→21:11)
[2018-10-17] MEDS: ASPIRIN 81 MG CHEWABLE TABLETS PO SCH (10:15)
[2018-10-17] MEDS: LIDOCAINE 5% TOPICAL PATCH TP SCH (10:16)
[2018-10-17] MEDS: NICOTINE 14 MG/24 HOURS TOPICAL PATCH TD SCH (10:16)
[2018-10-17] MEDS: TIOTROPIUM BROMIDE 2.5 MCG (SPIRIVA) RESPIMAT INHALER IH SCH (10:16)
[2018-10-17] MEDS: LIDOCAINE PATCH REMOVAL MC SCH (21:11)
[2018-10-17] MEDS: MELATONIN 5 MG TABLETS PO PRN (21:11)
[2018-10-17] MEDS: THIAMINE HCL 100 MG TABLET (FP) PO SCH (21:44)
[2018-10-18] MEDS: ACETAMINOPHEN 325 MG TABLET (FP) PO PRN ×2 (02:24→12:09)
[2018-10-18] MEDS: TIOTROPIUM BROMIDE 2.5 MCG (SPIRIVA) RESPIMAT INHALER IH SCH (09:56)
[2018-10-18] MEDS: ASPIRIN 81 MG CHEWABLE TABLETS PO SCH (09:57)
[2018-10-18] MEDS: BUDESONIDE/FORMETEROL FUMARATE 160/4.5 mcg INHALER IH SCH ×2 (09:57→21:57)
[2018-10-18] MEDS: NICOTINE 14 MG/24 HOURS TOPICAL PATCH TD SCH (09:57)
[2018-10-18] MEDS: LIDOCAINE 5% TOPICAL PATCH TP SCH (09:57)
[2018-10-18] MEDS: PRENATAL VITAMINS W/ FOLIC ACID TABLET (FP) PO SCH (09:57)
[2018-10-18] MEDS: GABAPENTIN 300 MG CAPSULE (FP) PO SCH ×4 (09:57→21:58)
--- NOTE | 2018-10-18 14:52 | PN ---
S Progress Note (SOAP) Subjective: Patient with c/o swelling at left side of upper palate. States that it is painful Objective: Swelling and dark red color at upper palate, left side. Poor dentition with many teeth missing and the rest with cavities and decay. 10/18/18 14:50 Assessment: Dental abscess. 10/18/18 14:51 Plan: Augmentin started, chlorohexidine mouth wash started.
[2018-10-18] MEDS: MAG HYDROX/AL HYDROX/SIMETH 30 ML UNIT-DOSE CUP PO PRN (16:47)
[2018-10-18] MEDS: AMOX TR/POT CLAV 875MG/125MG TABLETS (FP) PO SCH (17:00)
[2018-10-18] MEDS: MELATONIN 5 MG TABLETS PO PRN (21:58)
[2018-10-18] MEDS: THIAMINE HCL 100 MG TABLET (FP) PO SCH (21:58)
[2018-10-18] MEDS: CHLORHEXIDINE GLUCONATE 118 ML MOUTHWASH MM SCH (21:59)
[2018-10-18] MEDS: LIDOCAINE PATCH REMOVAL MC SCH (23:08)
[2018-10-19] MEDS: ACETAMINOPHEN 325 MG TABLET (FP) PO PRN ×2 (03:42→18:51)
[2018-10-19] MEDS: AMOX TR/POT CLAV 875MG/125MG TABLETS (FP) PO SCH ×2 (07:58→16:47)
[2018-10-19] MEDS: ASPIRIN 81 MG CHEWABLE TABLETS PO SCH (10:01)
[2018-10-19] MEDS: PRENATAL VITAMINS W/ FOLIC ACID TABLET (FP) PO SCH (10:01)
[2018-10-19] MEDS: BUDESONIDE/FORMETEROL FUMARATE 160/4.5 mcg INHALER IH SCH ×2 (10:01→21:58)
[2018-10-19] MEDS: TIOTROPIUM BROMIDE 2.5 MCG (SPIRIVA) RESPIMAT INHALER IH SCH (10:01)
[2018-10-19] MEDS: NICOTINE 14 MG/24 HOURS TOPICAL PATCH TD SCH (10:01)
[2018-10-19] MEDS: GABAPENTIN 300 MG CAPSULE (FP) PO SCH ×4 (10:01→21:41)
[2018-10-19] MEDS: LIDOCAINE 5% TOPICAL PATCH TP SCH (10:03)
[2018-10-19] MEDS: CHLORHEXIDINE GLUCONATE 118 ML MOUTHWASH MM SCH ×2 (10:04→21:40)
[2018-10-19] MEDS: CYCLOBENZAPRINE HCL 5 MG TABLET PO SCH ×2 (13:47→21:40)
[2018-10-19] MEDS: MAG HYDROX/AL HYDROX/SIMETH 30 ML UNIT-DOSE CUP PO PRN (13:47)
[2018-10-19] MEDS: MELATONIN 5 MG TABLETS PO PRN (21:40)
[2018-10-19] MEDS: THIAMINE HCL 100 MG TABLET (FP) PO SCH (21:40)
[2018-10-19] MEDS: LIDOCAINE PATCH REMOVAL MC SCH (21:41)
[2018-10-20] MEDS: ACETAMINOPHEN 325 MG TABLET (FP) PO PRN ×2 (02:42→21:42)
[2018-10-20] MEDS: CYCLOBENZAPRINE HCL 5 MG TABLET PO SCH ×3 (06:10→21:41)
[2018-10-20 07:08] VITALS: BP 110/71; PULSE 69; TEMP 97.6
[2018-10-20] MEDS: AMOX TR/POT CLAV 875MG/125MG TABLETS (FP) PO SCH ×2 (07:50→16:40)
[2018-10-20] MEDS: LIDOCAINE 5% TOPICAL PATCH TP SCH (09:41)
[2018-10-20] MEDS: BUDESONIDE/FORMETEROL FUMARATE 160/4.5 mcg INHALER IH SCH ×2 (09:41→21:49)
[2018-10-20] MEDS: GABAPENTIN 300 MG CAPSULE (FP) PO SCH ×4 (09:42→21:41)
[2018-10-20] MEDS: ASPIRIN 81 MG CHEWABLE TABLETS PO SCH (09:42)
[2018-10-20] MEDS: PRENATAL VITAMINS W/ FOLIC ACID TABLET (FP) PO SCH (09:42)
[2018-10-20] MEDS: CHLORHEXIDINE GLUCONATE 118 ML MOUTHWASH MM SCH ×2 (09:42→21:42)
[2018-10-20] MEDS: TIOTROPIUM BROMIDE 2.5 MCG (SPIRIVA) RESPIMAT INHALER IH SCH (09:42)
[2018-10-20] MEDS: NICOTINE 14 MG/24 HOURS TOPICAL PATCH TD SCH (09:42)
[2018-10-20] MEDS: THIAMINE HCL 100 MG TABLET (FP) PO SCH (21:41)
[2018-10-20] MEDS: LIDOCAINE PATCH REMOVAL MC SCH (21:49)
--- NOTE | 2018-10-21 00:51 | PN ---
[facility] Progress Note Note: LATE ENTRY FOR 2200 10/20/2018 CLIENT SEEN FOR C/O WORSENING PAIN TO MOUTH/ABSCESS. CLIENT REPORTS WORSENING SWELLING, DIFFICULTY EATING AND FACIAL PAIN X2 DAYS. DENIES SOB/C.P/FEVER/ CHILLS. AWAKE ALERT X 3 MILD DISTRESS HEENT- LEFT SIDE FACIAL SWELLING TENDER TO TOUCH APPROX 3 TO 4 CM MASS/ABCESS NOTED TO UPPER HARD PALATE OF MOUTH ON LEFT SIDE. INTACT TENDER TO TOUCH/ INDURATED, NO DRAINAGE. POOR DENTITION NOTED WITH DECAY AND EROSIONS, MISSING TEETH Vital Signs Temperature 97.6 F 10/20/18 07:06 Pulse Rate 69 10/20/18 07:06 Respiratory Rate 18 10/20/18 07:06 Blood Pressure 110/71 10/20/18 07:06 O2 Sat by Pulse Oximetry (%) DENTAL ABCESS P- TRANSFER TO [facility] FOR EVAL GIVEN ABT TXMENT X 2 DAYS WITH C/O WORSENING SX' S AND NOW FACIAL SWELLING. CLIENT WAS ENDORSED TO DR. BARAJAS.
[2018-10-21] MEDS: CYCLOBENZAPRINE HCL 5 MG TABLET PO SCH (07:03)
[2018-10-21] MEDS: AMOX TR/POT CLAV 875MG/125MG TABLETS (FP) PO SCH (07:04)
== END 2018-10-20 08:00 | disposition short-term general hospital (02) | DRG 772 ==
LOC: YASAS 18:58 → Y3W 18:59
PROVIDERS: ADMIT Neuromusculoskeletal Medicine & OMM; ATTEND Neuromusculoskeletal Medicine & OMM
PROC: HZ42ZZZ Group Counseling for Substance Abuse Treatment, Cognitive-Behavioral (ICD-10-PCS; principal; 2018-10-12)
DX: F10.20 Alcohol dependence, uncomplicated (principal); F14.20 Cocaine dependence, uncomplicated; F17.210 Nicotine dependence, cigarettes, uncomplicated; F44.9 Dissociative and conversion disorder, unspecified; J45.909 Unspecified asthma, uncomplicated; G62.9 Polyneuropathy, unspecified; E86.0 Dehydration; K04.7 Periapical abscess without sinus; Z98.890 Other specified postprocedural states
CPT/HCPCS: 94640

== ENCOUNTER 2018-10-20 23:59 | Emergency (ER) | payer OTHER ==
[2018-10-21 01:58] VITALS: BMI 24.3
--- NOTE | 2018-10-21 02:29 | PDOC ---
History of Present Illness - General Chief Complaint: Pain Stated Complaint: MOUTH PAIN Time Seen by Provider: 10/21/18 01:47 History Source: Patient Exam Limitations: No Limitations - History of Present Illness Initial Comments: 10/21/18 02:20 57 yo male pmh asthma, COPD and poor dentition presents to ED from [facility] rehab (for alcohol and cocaine, admitted 10/12 projected DC 10/26) for worsening dental abscess. Pt states he noted swelling in his mouth since Monday , was given Augmentin taken since (2 days) but reports worsening swelling, pain, drainage. Pt states 2 months ago he went to [facility] ER for similar abscess, I&D and sent home on antibiotics. Spoke with Dr. Evaristo QUINN at [facility] who agrees to evaluate pt in the ED 10/21/18 03:31 Dr. Denson ED Doctor accepts pt [id number] Past History - Past Medical History Allergies/Adverse Reactions: Allergies Allergy/AdvReac Type Severity Reaction Status Date / Time ibuprofen [From Motrin] Allergy Severe Difficulty Verified 10/12/18 19:20 Breathing Home Medications: Ambulatory Orders Aspirin [ASA -] 81 mg PO DAILY #30 tab.chew 09/10/18 Budesonide/Formeterol Fumarate [SYMBICORT 160/4.5mcg -] 1 inh PO BID #1 inhaler 09/10/18 Gabapentin [Neurontin -] 300 mg PO QID 14 Days capsule 09/10/18 Tiotropium [place] [Spiriva] 1 inh PO DAILY #1 cap.w.dev 09/10/18 predniSONE [Deltasone -] 50 mg PO DAILY 10/09/18 Asthma: Yes (on albuterol and symbicort) Cancer: No Cardiac Disorders: No CVA: No COPD: Yes (on albuterol and symbicort) CHF: No Dementia: No Diabetes: No GI Disorders: No Disorders: No HTN: No Hypercholesterolemia: No Kidney Stones: No Liver Disease: No Seizures: No Thyroid Disease: No - Surgical History Abdominal Surgery: Yes (incarcerated hernia repair X2 in 07/05 [facility]) Appendectomy: No Cardiac Surgery: No Cholecystectomy: No Lung Surgery: No Neurologic Surgery: No Orthopedic Surgery: No - Reproductive History Testicular Surgery: No - Suicide/Smoking/Psychosocial Hx Smoking History: Smoker current status UNK Have you smoked in the past 12 months: Yes Number of Cigarettes Smoked Daily: 5 Cigars Per Day: 0 'Breaking Loose' booklet given: 10/09/18 Hx Alcohol Use: Yes Drug/Substance Use Hx: Yes Substance Use Type: Alcohol, Cocaine Hx Substance Use Treatment: Yes ([facility] 08/23/18 to 08/27/18,rehab 08/27/18 to ) *Physical Exam - Vital Signs Last Vital Signs Temp Pulse Resp BP Pulse Ox 98.2 F 61 19 136/85 99 10/21/18 00:10 10/21/18 00:10 10/21/18 00:10 10/21/18 00:10 10/21/18 00:10 ED Treatment Course - LABORATORY CBC & Chemistry Diagram: 10/21/18 02:57 10/21/18 02:57 *DC/Admit/Observation/Transfer Diagnosis at time of Disposition: Dental abscess - Discharge Dispostion Disposition: TRANSFER ACUTE CARE/OTHER HOSP Condition at time of disposition: Stable Decision to Admit order: No - Referrals - Patient Instructions - Post Discharge Activity
--- NOTE | 2018-10-21 02:55 | PDOC ---
Attending Attestation - Resident Resident Name: Lucius De Santiago - ED Attending Attestation I have performed the following: I have examined & evaluated the patient, The case was reviewed & discussed with the resident, I agree w/resident's findings & plan - HPI HPI: 10/21/18 02:52 Pt comes with abscesses in his mouth. He was sent over from [facility]. - Physicial Exam PE: 10/21/18 03:42 Agree with resident exam - Medical Decision Making 10/21/18 03:42 Pt comes with abscesses inside his mouth and on the hard palate. He will be transferred to [facility], where dental OMFS can see him. 10/21/18 20:02 [facility] called back to say that pt was successfully treated and they will be sendong him back to [facility].
[2018-10-21 03:12] LABS: EOS % 4.1 % (0-4.5); HEMATOCRIT 40.9 % (35.4-49); LYMPH % 29.5 % (8-40); MCHC 31.9 g/dl (32.0-35.9); MEAN CELL VOLUME 84.6 fl (80-96); MEAN PLT VOLUME 7.7 fl (7.5-11.1); MONO % 11.3 % (3.8-10.2); NEUT % 54.1 % (42.8-82.8); PLATELET COUNT 204 K/MM3 (134-434); RBC 4.83 M/mm3 (4.00-5.60); RDW 15.1 % (11.9-15.9); WHITE BLOOD COUNT 5.1 K/mm3 (4.0-10.0)
[2018-10-21 03:40] LABS: ALBUMIN 3.4 g/dl (3.4-5.0); ALK PHOS 81 U/L (45-117); ANION GAP 6 MMOL/L (8-16); BILIRUBIN,TOTAL 0.3 mg/dL (0.2-1); BLOOD UREA NITROGEN 18 mg/dL (7-18); CALCIUM 8.6 mg/dL (8.5-10.1); CHLORIDE 106 mmol/L (98-107); CO2 28 mmol/L (21-32); CREATININE 1.2 mg/dL (0.55-1.3); GLUCOSE,RANDOM 94 mg/dL (74-106); POTASSIUM 4.2 mmol/L (3.5-5.1); SGOT/AST 19 U/L (15-37); SGPT/ALT 32 U/L (13-61); SODIUM 139 mmol/L (136-145); TOT PROT 6.8 g/dl (6.4-8.2)
[2018-10-21 03:59] VITALS: BP 126/78; PULSE 82; TEMP 98.8
== END 2018-10-21 04:00 | disposition short-term general hospital (02) ==
LOC: JER 23:59
DX: K04.7 Periapical abscess without sinus (principal); J44.9 Chronic obstructive pulmonary disease, unspecified; J45.909 Unspecified asthma, uncomplicated; F10.10 Alcohol abuse, uncomplicated; F14.10 Cocaine abuse, uncomplicated
CPT/HCPCS: 36415; 80053; 85025; 99282-25

== ENCOUNTER 2018-10-21 08:53 | Inpatient (IN) | payer OTHER ==
--- NOTE | 2018-10-21 10:18 | HP ---
[facility] Rehab Assess/Revision - Admission History Admitted to Rehab from: Emergency Department (Pt was transferred yesterday from to [facility] ED for tooth abscess. He was then transferred to [facility] from where he returns to us today after I& D of the abscess. D/C instructions are to continue augmentin and Motrin prn. He was also told to retuen tomorrow for extraction of the affected tooth. Mr Crawley will return to the unit now to complete his rehab.) - Vital signs Vital Signs: Vital Signs Period Temp Pulse Resp BP Sys/Maradiaga Pulse Ox Last 24 Hr 97.0 F 64 18 139/91 Inpatient Rehab Admission - Rehab Decision to Admit Inpatient rehab admission?: Yes - Initial Determination Are CD services needed?: No Free of communicable disease: No Not in need of hospitalization: No - Rehab Admission Criteria Previous failed treatment: Yes Poor recovery environment: Yes Comorbidities: Yes Lacks judgement: Yes Patient is meeting Inpatient Rehab admission criteria:: Yes
[2018-10-21] MEDS ORDERED: IBUPROFEN 400 MG TABLET (FP) PO PRN (10:20)
[2018-10-21] MEDS ORDERED: AMOX TR/POT CLAV 875MG/125MG TABLETS (FP) PO ONE (10:39)
[2018-10-21] MEDS ORDERED: guaiFENesin 200 MG/10 ML 10 ML UNIT-DOSE CUPS PO PRN (13:42)
[2018-10-21] MEDS ORDERED: MAGNESIUM CITRATE 300 ML BOTTLE PO PRN (13:43)
[2018-10-21] MEDS ORDERED: hydrOXYzine PAMOATE 25 MG CAPSULE (FP) PO PRN (13:43)
[2018-10-21] MEDS ORDERED: MENTHOL/PHENOL 1 EACH UD MM PRN (13:43)
[2018-10-21] MEDS ORDERED: MAG HYDROX/AL HYDROX/SIMETH 30 ML UNIT-DOSE CUP PO PRN (13:43)
[2018-10-21] MEDS ORDERED: LOPERAMIDE HCL 2 MG CAPSULE PO PRN (13:43)
[2018-10-21] MEDS ORDERED: MAGNESIUM HYDROX 2400MG/30ML ORAL SUSPENSION 30 ML CUP PO PRN (13:43)
[2018-10-21] MEDS ORDERED: P-EPHED 60MG/TRIPROLIDI 2.5MG TABLET PO PRN (13:43)
[2018-10-21] MEDS: AMOX TR/POT CLAV 875MG/125MG TABLETS (FP) PO SCH ×2 (14:50→19:14)
[2018-10-21] MEDS: NICOTINE 14 MG/24 HOURS TOPICAL PATCH TD SCH (14:50)
[2018-10-21] MEDS: ACETAMINOPHEN 325 MG TABLET (FP) PO PRN (16:01)
[2018-10-21] MEDS: ASPIRIN 81 MG CHEWABLE TABLETS PO SCH (16:34)
[2018-10-21] MEDS: TIOTROPIUM BROMIDE 2.5 MCG (SPIRIVA) RESPIMAT INHALER IH SCH (16:36)
[2018-10-21] MEDS: LIDOCAINE 5% TOPICAL PATCH TP SCH (16:36)
[2018-10-21] MEDS: GABAPENTIN 300 MG CAPSULE (FP) PO SCH ×2 (19:44→21:14)
[2018-10-21] MEDS: BUDESONIDE/FORMETEROL FUMARATE 160/4.5 mcg INHALER IH SCH (21:13)
[2018-10-21] MEDS: THIAMINE HCL 100 MG TABLET (FP) PO SCH (21:13)
[2018-10-21] MEDS: LIDOCAINE PATCH REMOVAL MC SCH (21:14)
[2018-10-22] MEDS: ACETAMINOPHEN 325 MG TABLET (FP) PO PRN (03:04)
[2018-10-22] MEDS: AMOX TR/POT CLAV 875MG/125MG TABLETS (FP) PO SCH ×2 (07:16→17:30)
[2018-10-22] MEDS: NICOTINE 14 MG/24 HOURS TOPICAL PATCH TD SCH (09:52)
[2018-10-22] MEDS: PRENATAL VITAMINS W/ FOLIC ACID TABLET (FP) PO SCH (09:52)
[2018-10-22] MEDS: GABAPENTIN 300 MG CAPSULE (FP) PO SCH ×4 (09:53→21:33)
[2018-10-22] MEDS: LIDOCAINE 5% TOPICAL PATCH TP SCH (09:53)
[2018-10-22] MEDS: TIOTROPIUM BROMIDE 2.5 MCG (SPIRIVA) RESPIMAT INHALER IH SCH (09:53)
[2018-10-22] MEDS: BUDESONIDE/FORMETEROL FUMARATE 160/4.5 mcg INHALER IH SCH ×2 (09:53→21:32)
[2018-10-22] MEDS: ASPIRIN 81 MG CHEWABLE TABLETS PO SCH (09:57)
[2018-10-22] MEDS: THIAMINE HCL 100 MG TABLET (FP) PO SCH (21:33)
[2018-10-22] MEDS: LIDOCAINE PATCH REMOVAL MC SCH (21:33)
[2018-10-23] MEDS: AMOX TR/POT CLAV 875MG/125MG TABLETS (FP) PO SCH ×2 (07:05→18:15)
[2018-10-23] MEDS: LIDOCAINE 5% TOPICAL PATCH TP SCH (09:57)
[2018-10-23] MEDS: TIOTROPIUM BROMIDE 2.5 MCG (SPIRIVA) RESPIMAT INHALER IH SCH (09:57)
[2018-10-23] MEDS: ASPIRIN 81 MG CHEWABLE TABLETS PO SCH (09:57)
[2018-10-23] MEDS: BUDESONIDE/FORMETEROL FUMARATE 160/4.5 mcg INHALER IH SCH ×2 (09:57→21:11)
[2018-10-23] MEDS: PRENATAL VITAMINS W/ FOLIC ACID TABLET (FP) PO SCH (09:58)
[2018-10-23] MEDS: GABAPENTIN 300 MG CAPSULE (FP) PO SCH ×4 (09:58→21:11)
[2018-10-23] MEDS: NICOTINE 14 MG/24 HOURS TOPICAL PATCH TD SCH (09:58)
[2018-10-23] MEDS: THIAMINE HCL 100 MG TABLET (FP) PO SCH (21:10)
[2018-10-23] MEDS: LIDOCAINE PATCH REMOVAL MC SCH (21:10)
[2018-10-23] MEDS ORDERED: PT OWN MED DRAWER 7, Y5N ONE (21:11)
[2018-10-24] MEDS: MELATONIN 5 MG TABLETS PO PRN ×2 (00:43→21:43)
[2018-10-24] MEDS: AMOX TR/POT CLAV 875MG/125MG TABLETS (FP) PO SCH (08:05)
[2018-10-24] MEDS: ASPIRIN 81 MG CHEWABLE TABLETS PO SCH (09:50)
[2018-10-24] MEDS: BUDESONIDE/FORMETEROL FUMARATE 160/4.5 mcg INHALER IH SCH ×2 (09:50→21:43)
[2018-10-24] MEDS: PRENATAL VITAMINS W/ FOLIC ACID TABLET (FP) PO SCH (09:50)
[2018-10-24] MEDS: GABAPENTIN 300 MG CAPSULE (FP) PO SCH ×4 (09:50→21:43)
[2018-10-24] MEDS ORDERED: PT OWN MED DRAWER 7, Y5N ONE (09:51)
[2018-10-24] MEDS: NICOTINE 14 MG/24 HOURS TOPICAL PATCH TD SCH (09:52)
[2018-10-24] MEDS: TIOTROPIUM BROMIDE 2.5 MCG (SPIRIVA) RESPIMAT INHALER IH SCH (09:52)
[2018-10-24] MEDS: LIDOCAINE 5% TOPICAL PATCH TP SCH (09:52)
[2018-10-24] MEDS: LIDOCAINE PATCH REMOVAL MC SCH (21:43)
[2018-10-24] MEDS: THIAMINE HCL 100 MG TABLET (FP) PO SCH (21:43)
[2018-10-25] MEDS: ACETAMINOPHEN 325 MG TABLET (FP) PO PRN ×2 (02:13→11:56)
[2018-10-25 07:04] VITALS: BP 111/64; PULSE 57; TEMP 97.4
[2018-10-25] MEDS: NICOTINE 14 MG/24 HOURS TOPICAL PATCH TD SCH (09:30)
[2018-10-25] MEDS: LIDOCAINE 5% TOPICAL PATCH TP SCH (09:31)
[2018-10-25] MEDS: PRENATAL VITAMINS W/ FOLIC ACID TABLET (FP) PO SCH (09:31)
[2018-10-25] MEDS: GABAPENTIN 300 MG CAPSULE (FP) PO SCH ×2 (09:31→14:26)
[2018-10-25] MEDS: ASPIRIN 81 MG CHEWABLE TABLETS PO SCH (09:31)
[2018-10-25] MEDS: BUDESONIDE/FORMETEROL FUMARATE 160/4.5 mcg INHALER IH SCH (09:32)
[2018-10-25] MEDS: TIOTROPIUM BROMIDE 2.5 MCG (SPIRIVA) RESPIMAT INHALER IH SCH (09:34)
--- NOTE | 2018-10-25 14:33 | PN ---
[facility] Progress Note (SOAP) Subjective: Patient is being discharged today, needs to go the the [facility] for dental care. Objective: A+O x3, no neurological deficits noted. SN2-12 intact. Lungs clear, heart rate regular, Abd soft, non-tender, non-distended. 10/25/18 14:32 Vital Signs (72 hours) 10/23/18 10/23/18 10/23/18 00:30 03:30 07:03 Temperature 98.2 F Pulse Rate 62 Respiratory 18 18 18 Rate Blood Pressure 132/70 10/24/18 10/24/18 10/24/18 00:30 03:30 06:53 Temperature 98.1 F Pulse Rate 68 Respiratory 18 18 18 Rate Blood Pressure 108/73 10/25/18 10/25/18 00:30 07:03 Temperature 97.4 F L Pulse Rate 57 L Respiratory 18 18 Rate Blood Pressure 111/64 Assessment: Medically stable for discharge Discharge Dx: ETOH abuse, chronic Neuropathy 10/25/18 14:34 Plan: Patient will go to [facility] for dental and primary care. Prescriptions sent to [facility]. After care at [facility].
[2018-10-25] MEDS ORDERED: PT OWN MED DRAWER 7, Y5N ONE (15:07)
== END 2018-10-25 15:10 | disposition home or self-care (01) | DRG 772 ==
LOC: YASAS 08:53 → Y3W 10:42
PROVIDERS: ADMIT Neuromusculoskeletal Medicine & OMM; ATTEND Neuromusculoskeletal Medicine & OMM
PROC: HZ42ZZZ Group Counseling for Substance Abuse Treatment, Cognitive-Behavioral (ICD-10-PCS; principal; 2018-10-21)
DX: F10.20 Alcohol dependence, uncomplicated (principal); G62.9 Polyneuropathy, unspecified

== ENCOUNTER 2019-12-11 09:04 | Inpatient (IN) | payer OTHER ==
--- NOTE | 2019-12-11 09:20 | BHS.RME ---
Substance Use & Tx History - Substance Use History Alcohol Substance amount: Beer 24 cans x 12 ounce, one pint whiskey Frequency of use: Daily Substance route: Oral Date of Last Use: 12/10/19 (First use age 13 y. No seizure. Many blackouts, last one was one week ago. 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) Cocaine- Powder Substance amount: $150 to $200 Frequency of use: Daily Substance route: Inhalation (ex: sniffing or snorting) Date of Last Use: 12/10/19 (First use in his 20s) Cocaine-Crack Substance amount: $50 Frequency of use: Daily Substance route: Smoking Date of Last Use: 12/10/19 (First use in his 20s) Nicotine Substance amount: 4-5 cigs Frequency of use: Daily Substance route: Smoking Date of Last Use: 12/11/19 (First use age 16) - Last Treatment Date of last treatment: 10/09/18 - 10/25/18 Where was last treatment: Rehab Physical/Psych/Mental Status - Behavior General Behavior: Increased activity (restlessness, agitation) Eye Contact: Normal - Cooperativeness Cooperativeness: Cooperative - Thinking Thought Processes: Tight Thought content: Future oriented - Physical Health Problems Is patient presently having any pain?: Yes (chronic pelvic pain since hernia surgery) Does patient presently have any injuries (include location): No Does patient currently have a fever: No CIWA Nausea/Vomitin Muscle Tremors: 2 Anxiety: 3 Agitation: 2 Paroxysmal Sweats: No Perspiration Orientation: 0-Oriented Tacttile Disturbances: 0-None Auditory Disturbances: 2-Mild Harshness/Frighten Visual Disturbances: 0-None Headache: 0-None Present CIWA-Ar Total Score: 12
--- NOTE | 2019-12-11 10:01 | HP ---
CIWA Score Nausea/Vomitin Muscle Tremors: 2 Anxiety: 3 Agitation: 2 Paroxysmal Sweats: No Perspiration Orientation: 0-Oriented Tacttile Disturbances: 0-None Auditory Disturbances: 2-Mild Harshness/Frighten Visual Disturbances: 0-None Headache: 0-None Present CIWA-Ar Total Score: 12 - Admission Criteria OASAS Guidelines: Admission for Medically Managed Detox: Requires at least one of the followin. CIWA greater than 12 2. Seizures within the past 24 hours 3. Delirium tremens within the past 24 hours 4. Hallucinations within the past 24 hours 5. Acute intervention needed for co occurring medical disorder 6. Acute intervention needed for co occurring psychiatric disorder 7. Severe withdrawal that cannot be handled at a lower level of care (continued vomiting, continued diarrhea, abnormal vital signs) requiring intravenous medication and/or fluids 8. Admitting History and Physical - Admission Chief Complaint: Mr. Crawley is a 59 yo gentleman who presents to [facility] stating "I'm out of control drinking and drugging". He requests admission to detox. History of Present Illness: Mr. Crawley is a 59 yo gentleman who presents to [facility] stating "I'm out of control drinking and drugging". He requests admission to detox. PMH: Asthma, fracued neck 2019/no surgery PsH: Carpal tunnel left, left elbow, inguinal hernia x 2, intussusception Psych: none SoC: homeless Legal: none Substance Use History Alcohol Substance amount: Beer 24 cans x 12 ounce, one pint whiskey Frequency of use: Daily Substance route: Oral Date of Last Use: 12/10/19 (First use age 13 y. No seizure. Many blackouts, last one was one week ago. Admits to eye auxiliary equipment operator) Cocaine- Powder Substance amount: $150 to $200 Frequency of use: Daily Substance route: Inhalation (ex: sniffing or snorting) Date of Last Use: 12/10/19 (First use in his 20s) Cocaine-Crack Substance amount: $50 Frequency of use: Daily Substance route: Smoking Date of Last Use: 12/10/19 (First use in his 20s) Nicotine Substance amount: 4-5 cigs Frequency of use: Daily Substance route: Smoking Date of Last Use: 06/24/20 (First use age 16) - Last Treatment Date of last treatment: 10/09/18 - 10/25/18 Where was last treatment: Rehab History Source: Patient Limitations to Obtaining History: No Limitations - Smoking History Smoking history: Smoker current status UNK Have you smoked in the past 12 months: Yes Aproximately how many cigarettes per day: 5 - Alcohol/Substance Use Hx Alcohol Use: Yes Admission ROS BHS - HPI Allergies/Adverse Reactions: Allergies Allergy/AdvReac Type Severity Reaction Status Date / Time ibuprofen [From Motrin] Allergy Severe Difficulty Verified 10/21/18 09:20 Breathing Exam Limitations: No Limitations - Ebola screening Have you traveled outside of the country in the last 21 days: No Have you been sick,other than usual withdrawal symptoms: No Do you have a fever: No - Review of Systems Constitutional: Loss of Appetite (poor appetite, insomnia), Changes in sleep EENT: reports: Blurred Vision (No glasses) Respiratory: reports: No Symptoms reported Cardiac: reports: No Symptoms Reported GI: reports: Nausea : reports: No Symptoms Reported Musculoskeletal: reports: Back Pain (radiates to bilateral posterior thigh and legs), Other (chronic lower abdominal pain he attributes to prior surgery) Integumentary: reports: No Symptoms Reported Neuro: reports: Headache Endocrine: reports: No Symptoms Reported Hematology: reports: No Symptoms Reported Psychiatric: reports: Anxious Patient History - Patient Medical History Hx Asthma: Yes (on albuterol and symbicort) Hx Chronic Obstructive Pulmonary Disease (COPD): Yes (on albuterol and symbicort) Hx Cancer: No Hx Cardiac Disorders: No Hx Congestive Heart Failure: No Hx Hypertension: No Hx Hypercholesterolemia: No Hx Pacemaker: No HX Cerebrovascular Accident: No Hx Seizures: No Hx Dementia: No Hx Diabetes: No Hx Gastrointestinal Disorders: No Hx Liver Disease: No Hx Genitourinary Disorders: No Hx Sexually Transmitted Disorders: No Hx Renal Disease (ESRD): No Hx Thyroid Disease: No Hx Human Immunodeficiency Virus (HIV): No (last 07/07 negative) Hx Hepatitis C: No Hx Depression: No Hx Suicide Attempt: No Hx Bipolar Disorder: No Hx Schizophrenia: No - Patient Surgical History Past Surgical History: Yes Hx Neurologic Surgery: No Hx Cataract Extraction: No Hx Cardiac Surgery: No Hx Lung Surgery: No Hx Breast Surgery: No Hx Breast Biopsy: No Hx Abdominal Surgery: Yes (incarcerated hernia repair X2 in 07/05 [facility]) Hx Appendectomy: No Hx Cholecystectomy: No Hx Genitourinary Surgery: No Hx Section: No Hx Orthopedic Surgery: No Hx Hysterectomy: No Other Surgical History: ABSCESS TO GUM DRAINAGE Anesthesia Reaction: No - PPD History Date: 05/23/18 Results: negative - Smoking Cessation Smoking history: Smoker current status UNK Have you smoked in the past 12 months: Yes Aproximately how many cigarettes per day: 5 Cigars Per Day: 0 Hx Chewing Tobacco Use: No Initiated information on smoking cessation: Yes 'Breaking Loose' booklet given: 12/11/19 Admission Physical Exam [facility] - Physical General Appearance: Yes: Nourished, Mild Distress, Thin HEENTM: Yes: EOMI, Hearing grossly Normal, Normocephalic, Normal Voice, Other (missing teeth, many of uppers, several of lowers) Respiratory: Yes: Lungs Clear, Normal Breath Sounds Neck: Yes: Within Normal Limits, Supple Breast: Yes: Breast Exam Deferred Cardiology: Yes: Regular Rhythm, Regular Rate, S1, S2 Abdominal: Yes: Normal Bowel Sounds, Non Tender, Flat, Soft Genitourinary: Yes: Other (deferred) Back: Yes: Normal Inspection Musculoskeletal: Yes: Gait Steady Extremities: Yes: Normal Inspection, Non-Tender Neurological: Yes: Fully Oriented, Normal Mood/Affect, Normal Response Integumentary: Yes: Normal Color, Dry, Warm - Diagnostic (1) Homeless Current Visit: Yes Status: Acute (2) Alcohol dependence with uncomplicated withdrawal Current Visit: Yes Status: Acute (3) Asthma Current Visit: Yes Status: Chronic Qualifiers: Asthma severity: unspecified severity Asthma complication type: unspecified (4) Cocaine dependence Current Visit: Yes Status: Acute Qualifiers: Substance use status: uncomplicated Qualified Code(s): F14.20 - Cocaine dependence, uncomplicated (5) Nicotine dependence Current Visit: Yes Status: Acute Qualifiers: Nicotine product type: cigarettes Substance use status: uncomplicated Qualified Code(s): F17.210 - Nicotine dependence, cigarettes, uncomplicated (6) Dental decay Current Visit: No Status: Chronic Cleared for Admission [facility] - Detox or Rehab [facility] Level of Care: Medically Managed Detox Regimen/Protocol: Librium Breathalyzer - Breathalyzer Breathalyzer: 0.009 Urine Drug Screen - Test Device Lot number: [id number] Expiration date: 02/16/21 - Control Is test valid?: Yes - Results Drug screen NEGATIVE: No Urine drug screen results: ANGUS-Cocaine Inpatient Rehab Admission - Rehab Decision to Admit Inpatient rehab admission?: No
[2019-12-11] MEDS ORDERED: ACETAMINOPHEN 325 MG TABLET (FP) PO PRN (10:10)
[2019-12-11] MEDS ORDERED: MAGNESIUM CITRATE 300 ML BOTTLE PO PRN (10:10)
[2019-12-11] MEDS ORDERED: MENTHOL/PHENOL 1 EACH UD MM PRN (10:10)
[2019-12-11] MEDS ORDERED: MAGNESIUM HYDROX 2400MG/30ML ORAL SUSPENSION 30 ML CUP PO PRN (10:10)
[2019-12-11] MEDS ORDERED: NICOTINE POLACRILEX 2 MG GUM BUC PRN (10:10)
[2019-12-11] MEDS ORDERED: ONDANSETRON *ODT* 4 MG TABLET SL PRN (10:10)
[2019-12-11] MEDS ORDERED: chlordiazePOXIDE HCL 25 MG CAPSULE PO PRN (10:10)
[2019-12-11] MEDS ORDERED: MAG HYDROX/AL HYDROX/SIMETH 30 ML UNIT-DOSE CUP PO PRN (10:10)
[2019-12-11] MEDS ORDERED: BISMUTH SUBSALICYLATE 262 MG/15 ML BTL PO PRN (10:10)
[2019-12-11] MEDS ORDERED: ASPIRIN 81 MG CHEWABLE TABLETS PO SCH (10:15)
[2019-12-11 10:29] VITALS: BMI 22.5
[2019-12-11] MEDS: BUDESONIDE/FORMETEROL FUMARATE 160/4.5 mcg INHALER IH SCH ×2 (13:35→22:37)
[2019-12-11] MEDS: hydrOXYzine PAMOATE 25 MG CAPSULE (FP) PO SCH ×3 (13:36→22:36)
[2019-12-11] MEDS: chlordiazePOXIDE HCL 25 MG CAPSULE PO SCH ×3 (13:36→22:36)
[2019-12-11] MEDS: NICOTINE 7 MG/24 HOURS TOPICAL PATCH TD SCH (13:42)
[2019-12-11] MEDS: TIOTROPIUM BROMIDE 2.5 MCG (SPIRIVA) RESPIMAT INHALER IH SCH (13:43)
[2019-12-11] MEDS: PRENATAL VITAMINS W/ FOLIC ACID TABLET (FP) PO SCH (13:43)
[2019-12-11 14:40] LABS: HEMATOCRIT 40.8 % (35.4-49); HEMOGLOBIN 13.2 GM/dL (11.7-16.9); MCH 28.3 pg (25.7-33.7); MCHC 32.2 g/dl (32.0-35.9); MEAN CELL VOLUME 87.8 fl (80-96); MEAN PLT VOLUME 8.9 fl (7.5-11.1); PLATELET COUNT 204 K/MM3 (134-434); RBC 4.64 M/mm3 (4.00-5.60); RDW 14.6 % (11.9-15.9); WHITE BLOOD COUNT 4.3 K/mm3 (4.0-10.0)
[2019-12-11 14:56] LABS: ALBUMIN 3.6 g/dl (3.4-5.0); BILIRUBIN,TOTAL 1.1 mg/dL (0.2-1); BLOOD UREA NITROGEN 12.1 mg/dL (7-18); CALCIUM 8.6 mg/dL (8.5-10.1); CREATININE 1.2 mg/dL (0.55-1.3); POTASSIUM 3.5 mmol/L (3.5-5.1); TOT PROT 7.1 g/dl (6.4-8.2)
[2019-12-11] MEDS: METHOCARBAMOL 500 MG TABLET PO PRN (20:55)
[2019-12-11] MEDS: MELATONIN 5 MG TABLETS PO SCH (22:36)
[2019-12-11] MEDS: THIAMINE HCL 100 MG TABLET (FP) PO SCH (22:36)
[2019-12-12] MEDS: chlordiazePOXIDE HCL 25 MG CAPSULE PO SCH ×4 (05:25→22:17)
[2019-12-12] MEDS: hydrOXYzine PAMOATE 25 MG CAPSULE (FP) PO SCH ×5 (05:29→22:17)
[2019-12-12] MEDS ORDERED: predniSONE 20 MG TABLET (UD) PO SCH (10:00)
[2019-12-12] MEDS ORDERED: predniSONE 40 MG, predniSONE 10 MG PO SCH (10:00)
[2019-12-12] MEDS: BUDESONIDE/FORMETEROL FUMARATE 160/4.5 mcg INHALER IH SCH ×2 (10:17→22:18)
[2019-12-12] MEDS: METHOCARBAMOL 500 MG TABLET PO PRN (10:17)
[2019-12-12] MEDS: PRENATAL VITAMINS W/ FOLIC ACID TABLET (FP) PO SCH (10:18)
[2019-12-12] MEDS: NICOTINE 7 MG/24 HOURS TOPICAL PATCH TD SCH (10:18)
[2019-12-12] MEDS: TIOTROPIUM BROMIDE 2.5 MCG (SPIRIVA) RESPIMAT INHALER IH SCH (10:21)
[2019-12-12] MEDS ORDERED: ALBUTEROL SO4 0.083% IH SOL 2.5 MG/3 ML VIAL.NEB. NEB PRN (13:47)
--- NOTE | 2019-12-12 13:47 | PN ---
S CIWA - CIWA Score Nausea/Vomitin-Mild Nausea/No Vomiting Muscle Tremors: 3 Anxiety: 3 Agitation: 1-Slight > Activity Paroxysmal Sweats: 1-Minimal Palms Moist Orientation: 0-Oriented Tacttile Disturbances: 1-Very Mild Itch/Numbness Auditory Disturbances: 0-None Visual Disturbances: 1-Very Mild Sensitivity Headache: 1-Very Mild CIWA-Ar Total Score: 12 BHS Progress Note (SOAP) Subjective: 59 years old male admitted on 12/11/19 for alcohol withdrawal sx management treating with librium detox regiment tremor anxiety restlessness feeling tired resting in bed after breakfast and lunch limited conversation with staff Objective: 12/12/19 13:42 Vital Signs - 24 hr 12/11/19 12/11/19 12/12/19 16:45 20:46 00:29 Temperature 97.3 F L 97.3 F L Pulse Rate 63 65 Respiratory 18 16 18 Rate Blood Pressure 130/71 116/71 O2 Sat by Pulse 98 Oximetry (%) 12/12/19 12/12/19 12/12/19 03:39 06:12 06:20 Temperature 97.8 F Pulse Rate 55 L Respiratory 18 18 18 Rate Blood Pressure 112/63 O2 Sat by Pulse 99 Oximetry (%) 12/12/19 12/12/19 08:47 12:52 Temperature 97.3 F L 98.0 F Pulse Rate 54 L 56 L Respiratory 18 18 Rate Blood Pressure 118/69 114/68 O2 Sat by Pulse 98 Oximetry (%) 12/12/19 13:42 Laboratory Tests 12/11/19 12/11/19 12/11/19 10:05 10:05 10:05 WBC 4.3 RBC 4.64 Hgb 13.2 Hct 40.8 MCV 87.8 MCH 28.3 MCHC 32.2 RDW 14.6 Plt Count 204 MPV 8.9 D Sodium 142 Potassium 3.5 Chloride 110 H Carbon Dioxide 25 Anion Gap 7 L BUN 12.1 Creatinine 1.2 Est GFR (CKD-EPI)AfAm 76.79 Est GFR (CKD-EPI)NonAf 66.26 Random Glucose 124 H Calcium 8.6 Total Bilirubin 1.1 H AST 36 ALT 33 Alkaline Phosphatase 79 Total Protein 7.1 Albumin 3.6 Syphilis Serology Non-reactive glucose elevation fasting glucose 12/15/19 12/12/19 13:50 Assessment: 12/12/19 13:52 alcohol withdrawal Plan: librium regiment
[2019-12-12] MEDS ORDERED: MASKS NR ONE (20:58)
[2019-12-12] MEDS: MELATONIN 5 MG TABLETS PO SCH (22:17)
[2019-12-12] MEDS: THIAMINE HCL 100 MG TABLET (FP) PO SCH (22:17)
[2019-12-13] MEDS: chlordiazePOXIDE HCL 25 MG CAPSULE PO SCH ×4 (05:43→22:15)
[2019-12-13] MEDS: hydrOXYzine PAMOATE 25 MG CAPSULE (FP) PO SCH ×5 (05:43→22:15)
--- NOTE | 2019-12-13 09:07 | PN ---
S CIWA - CIWA Score Nausea/Vomitin-No Nausea/No Vomiting Muscle Tremors: 2 Anxiety: 0-No Anxiety, at Ease Agitation: 0-Normal Activity Paroxysmal Sweats: No Perspiration Orientation: 1-Uncertain about Date Tacttile Disturbances: 0-None Auditory Disturbances: 0-None Visual Disturbances: 0-None Headache: 3-Moderate CIWA-Ar Total Score: 6 BHS Progress Note (SOAP) Subjective: No complaints Objective: 12/13/19 09:08 Mr. Crawley is a 59 yo gentleman who presents to [facility] stating "I'm out of control drinking and drugging". He requests admission to detox. PMH: Asthma, fracued neck 2019/no surgery PsH: Carpal tunnel left, left elbow, inguinal hernia x 2, intussusception Psych: none SoC: homeless Legal: none Substances used: alcohol, cocaine, nicotine PE Gnl: WDWN, in bed, in no distress MS: asleep,easily awoken, nl language Motor: slight tremor Coord: nl Laboratory Tests 12/11/19 12/11/19 12/11/19 10:05 10:05 10:05 WBC 4.3 RBC 4.64 Hgb 13.2 Hct 40.8 MCV 87.8 MCH 28.3 MCHC 32.2 RDW 14.6 Plt Count 204 MPV 8.9 D Sodium 142 Potassium 3.5 Chloride 110 H Carbon Dioxide 25 Anion Gap 7 L BUN 12.1 Creatinine 1.2 Est GFR (CKD-EPI)AfAm 76.79 Est GFR (CKD-EPI)NonAf 66.26 Random Glucose 124 H Calcium 8.6 Total Bilirubin 1.1 H AST 36 ALT 33 Alkaline Phosphatase 79 Total Protein 7.1 Albumin 3.6 Syphilis Serology Non-reactive COVID-19 ([facility]) 12/11/19 10:35 WBC RBC Hgb Hct MCV MCH MCHC RDW Plt Count MPV Sodium Potassium Chloride Carbon Dioxide Anion Gap BUN Creatinine Est GFR (CKD-EPI)AfAm Est GFR (CKD-EPI)NonAf Random Glucose Calcium Total Bilirubin AST ALT Alkaline Phosphatase Total Protein Albumin Syphilis Serology COVID-19 ([facility]) Not detected Vital Signs Temperature 98.0 F 12/13/19 08:40 Pulse Rate 68 12/13/19 08:40 Respiratory Rate 18 12/13/19 08:40 Blood Pressure 112/65 12/13/19 08:40 O2 Sat by Pulse Oximetry (%) 98 12/13/19 05:29 Assessment: 12/13/19 09:11 1. Alcohol use disorder 2. Cocaine dependence 3. Nicotine dependence Plan: 1. Librium detox, projected completion 12/15 2. Nicoderm patch
[2019-12-13] MEDS ORDERED: predniSONE 20 MG TABLET (UD) PO ONE (10:00)
[2019-12-13] MEDS: BUDESONIDE/FORMETEROL FUMARATE 160/4.5 mcg INHALER IH SCH ×2 (10:26→22:15)
[2019-12-13] MEDS: TIOTROPIUM BROMIDE 2.5 MCG (SPIRIVA) RESPIMAT INHALER IH SCH (10:26)
[2019-12-13] MEDS: NICOTINE 7 MG/24 HOURS TOPICAL PATCH TD SCH (10:27)
[2019-12-13] MEDS: PRENATAL VITAMINS W/ FOLIC ACID TABLET (FP) PO SCH (10:30)
[2019-12-13] MEDS: ACETAMINOPHEN 325 MG TABLET (FP) PO PRN (20:40)
[2019-12-13] MEDS: THIAMINE HCL 100 MG TABLET (FP) PO SCH (22:15)
[2019-12-13] MEDS: MELATONIN 5 MG TABLETS PO SCH (22:15)
[2019-12-14] MEDS ORDERED: chlordiazePOXIDE HCL 10 MG CAPSULE PO PRN
[2019-12-14] MEDS: ACETAMINOPHEN 325 MG TABLET (FP) PO PRN ×2 (02:13→12:23)
[2019-12-14] MEDS: hydrOXYzine PAMOATE 25 MG CAPSULE (FP) PO SCH ×5 (05:27→22:20)
[2019-12-14] MEDS: chlordiazePOXIDE HCL 10 MG CAPSULE PO SCH ×4 (05:27→22:20)
[2019-12-14] MEDS ORDERED: predniSONE 10 MG TABLET (UD) PO SCH (10:00)
[2019-12-14] MEDS: NICOTINE 7 MG/24 HOURS TOPICAL PATCH TD SCH (10:04)
[2019-12-14] MEDS: TIOTROPIUM BROMIDE 2.5 MCG (SPIRIVA) RESPIMAT INHALER IH SCH (10:05)
[2019-12-14] MEDS: BUDESONIDE/FORMETEROL FUMARATE 160/4.5 mcg INHALER IH SCH ×2 (10:05→22:21)
[2019-12-14] MEDS: PRENATAL VITAMINS W/ FOLIC ACID TABLET (FP) PO SCH (10:05)
--- NOTE | 2019-12-14 11:01 | PN ---
S CIWA - CIWA Score Nausea/Vomitin-No Nausea/No Vomiting Muscle Tremors: None Anxiety: 2 Agitation: 1-Slight > Activity Paroxysmal Sweats: 2 Orientation: 0-Oriented Tacttile Disturbances: 0-None Auditory Disturbances: 0-None Visual Disturbances: 0-None Headache: 1-Very Mild CIWA-Ar Total Score: 6 BHS Progress Note (SOAP) Subjective: c/o sweats, anxiety, and headache. Objective: 12/14/19 11:00 Vital Signs 12/14/19 12/14/19 12/14/19 03:30 06:13 08:47 Temperature 98.2 F 97.6 F Pulse Rate 60 58 L Respiratory 18 18 18 Rate Blood Pressure 109/69 102/56 L O2 Sat by Pulse 98 Oximetry (%) Laboratory Last Values WBC 4.3 K/mm3 (4.0-10.0) 12/11/19 10:05 RBC 4.64 M/mm3 (4.00-5.60) 12/11/19 10:05 Hgb 13.2 GM/dL (11.7-16.9) 12/11/19 10:05 Hct 40.8 % (35.4-49) 12/11/19 10:05 MCV 87.8 fl (80-96) 12/11/19 10:05 MCH 28.3 pg (25.7-33.7) 12/11/19 10:05 MCHC 32.2 g/dl (32.0-35.9) 12/11/19 10:05 RDW 14.6 % (11.9-15.9) 12/11/19 10:05 Plt Count 204 K/MM3 (134-434) 12/11/19 10:05 MPV 8.9 fl (7.5-11.1) D 12/11/19 10:05 Sodium 142 mmol/L (136-145) 12/11/19 10:05 Potassium 3.5 mmol/L (3.5-5.1) 12/11/19 10:05 Chloride 110 mmol/L (98-107) H 12/11/19 10:05 Carbon Dioxide 25 mmol/L (21-32) 12/11/19 10:05 Anion Gap 7 MMOL/L (8-16) L 12/11/19 10:05 BUN 12.1 mg/dL (7-18) 12/11/19 10:05 Creatinine 1.2 mg/dL (0.55-1.3) 12/11/19 10:05 Est GFR (CKD-EPI)AfAm 76.79 12/11/19 10:05 Est GFR (CKD-EPI)NonAf 66.26 12/11/19 10:05 Random Glucose 124 mg/dL (74-106) H 12/11/19 10:05 Calcium 8.6 mg/dL (8.5-10.1) 12/11/19 10:05 Total Bilirubin 1.1 mg/dL (0.2-1) H 12/11/19 10:05 AST 36 U/L (15-37) 12/11/19 10:05 ALT 33 U/L (13-61) 12/11/19 10:05 Alkaline Phosphatase 79 U/L (45-117) 12/11/19 10:05 Total Protein 7.1 g/dl (6.4-8.2) 12/11/19 10:05 Albumin 3.6 g/dl (3.4-5.0) 12/11/19 10:05 Syphilis Serology Non-reactive (NONREACTIVE) 12/11/19 10:05 COVID-19 ([facility]) Not detected (Not Detected) 12/11/19 10:35 Labs noted. Assessment: 12/14/19 11:00 AOX3, in no acute respiratory distress. Full ROM, ambulating in the unit. Withdrawal symptoms. Plan: continue detox.
[2019-12-14] MEDS: METHOCARBAMOL 500 MG TABLET PO PRN (12:23)
[2019-12-14] MEDS: THIAMINE HCL 100 MG TABLET (FP) PO SCH (22:20)
[2019-12-14] MEDS: MELATONIN 5 MG TABLETS PO SCH (22:20)
[2019-12-15] MEDS: METHOCARBAMOL 500 MG TABLET PO PRN (02:35)
[2019-12-15] MEDS ORDERED: chlordiazePOXIDE HCL 10 MG CAPSULE PO SCH (05:00)
[2019-12-15] MEDS: hydrOXYzine PAMOATE 25 MG CAPSULE (FP) PO SCH (05:39)
[2019-12-15 09:09] VITALS: BP 156/88; PULSE 60; TEMP 96.7
--- NOTE | 2019-12-15 10:10 | DS ---
[facility] Detox Discharge Summary Admission Date: 12/11/19 Discharge Date: 12/15/19 - History Present History: Alcohol Dependence Additional Comments: 59 years old male admitted on 12/11/19 for alcohol withdrawal sx management treated with librium detox regiment Mr allison prefers to leave the detox unit today and prepares for [facility] admission as alcohol recovery alert oriented x 3 ambulating with steady gaits respiratory clear lung sounds bilaterally on auscultation abdomen soft flat no rebound tenderness extremities full range of motion General Appearance: Yes: Nourished, Mild Distress, Thin HEENTM: Yes: EOMI, Hearing grossly Normal, Normocephalic, Normal Voice, Other (missing teeth, many of uppers, several of lowers) Respiratory: Yes: Lungs Clear, Normal Breath Sounds Neck: Yes: Within Normal Limits, Supple Breast: Yes: Breast Exam Deferred Cardiology: Yes: Regular Rhythm, Regular Rate, S1, S2 Abdominal: Yes: Normal Bowel Sounds, Non Tender, Flat, Soft Genitourinary: Yes: Other (deferred) Back: Yes: Normal Inspection Musculoskeletal: Yes: Gait Steady Extremities: Yes: Normal Inspection, Non-Tender Neurological: Yes: Fully Oriented, Normal Mood/Affect, Normal Response Integumentary: Yes: Normal Color, Dry, Warm Pertinent Past History: time for discharge 44 minutes discussing the benefits of librium regiment completion - Physical Exam Results Vital Signs: Vital Signs Temperature 96.7 F L 12/15/19 08:30 Pulse Rate 60 12/15/19 08:30 Respiratory Rate 16 12/15/19 08:30 Blood Pressure 156/88 12/15/19 08:30 O2 Sat by Pulse Oximetry (%) 98 12/15/19 06:21 Pertinent Admission Physical Exam Findings: alcohol withdrawal Laboratory Tests 12/11/19 12/11/19 12/11/19 10:05 10:05 10:05 WBC 4.3 RBC 4.64 Hgb 13.2 Hct 40.8 MCV 87.8 MCH 28.3 MCHC 32.2 RDW 14.6 Plt Count 204 MPV 8.9 D Sodium 142 Potassium 3.5 Chloride 110 H Carbon Dioxide 25 Anion Gap 7 L BUN 12.1 Creatinine 1.2 Est GFR (CKD-EPI)AfAm 76.79 Est GFR (CKD-EPI)NonAf 66.26 Random Glucose 124 H Fasting Glucose Calcium 8.6 Total Bilirubin 1.1 H AST 36 ALT 33 Alkaline Phosphatase 79 Total Protein 7.1 Albumin 3.6 Syphilis Serology Non-reactive COVID-19 ([facility]) 12/11/19 12/15/19 10:35 07:30 WBC RBC Hgb Hct MCV MCH MCHC RDW Plt Count MPV Sodium Potassium Chloride Carbon Dioxide Anion Gap BUN Creatinine Est GFR (CKD-EPI)AfAm Est GFR (CKD-EPI)NonAf Random Glucose Fasting Glucose 113 H Calcium Total Bilirubin AST ALT Alkaline Phosphatase Total Protein Albumin Syphilis Serology COVID-19 ([facility]) Not detected - Treatment Hospital Course: Detox Protocol Followed, Detoxed Safely, Responded well, Discharged Condition Good, Rehab Referral Accepted Patient has Accepted a Rehab Referral to: [facility] - Medication Discharge Medications: Ambulatory Orders Gabapentin [Neurontin -] 300 mg PO QID 14 Days capsule 10/25/18 Prednisone [Prednisone 50 MG TABLETS] 50 mg PO DAILY 12/11/19 Albuterol Sulfate Inhaler - [Ventolin HFA Inhaler -] 2 inh PO Q4H PRN 30 Days #1 inhaler 12/15/19 Budesonide/Formeterol Fumarate [SYMBICORT 160/4.5mcg -] 1 inh PO BID #1 inhaler 12/15/19 Tiotropium [place] [Spiriva] 1 inh PO DAILY #1 cap.w.dev 12/15/19 - Diagnosis (1) Alcohol dependence with uncomplicated withdrawal Status: Acute (2) Nicotine dependence Status: Acute Qualifiers: Nicotine product type: cigarettes Substance use status: in withdrawal Qualified Code(s): F17.213 - Nicotine dependence, cigarettes, with withdrawal (3) Asthma Status: Chronic Qualifiers: Asthma severity: mild Asthma persistence: intermittent Asthma complication type: unspecified Qualified Code(s): J45.20 - Mild intermittent asthma, uncomplicated (4) COPD (chronic obstructive pulmonary disease) Status: Chronic Qualifiers: Emphysema type: unspecified (5) Nicotine use disorder Status: Acute - AMA Did Patient Leave Against Medical Advice: No CIWA Score - CIWA Score Nausea/Vomitin-No Nausea/No Vomiting Muscle Tremors: None Anxiety: 1-Mildly Anxious Agitation: 0-Normal Activity Paroxysmal Sweats: 1-Minimal Palms Moist Orientation: 0-Oriented Tacttile Disturbances: 0-None Auditory Disturbances: 0-None Visual Disturbances: 0-None Headache: 0-None Present CIWA-Ar Total Score: 2
[2019-12-16] MEDS ORDERED: chlordiazePOXIDE HCL 10 MG CAPSULE PO ONE (05:00)
== END 2019-12-15 09:16 | disposition home or self-care (01) | DRG 774 ==
LOC: YASAS 09:04 → Y3N 10:14
PROVIDERS: ADMIT Allergy & Immunology; ATTEND Allergy & Immunology
PROC: HZ2ZZZZ Detoxification Services for Substance Abuse Treatment (ICD-10-PCS; principal; 2019-12-11)
DX: F10.230 Alcohol dependence with withdrawal, uncomplicated (principal); F14.20 Cocaine dependence, uncomplicated; F17.210 Nicotine dependence, cigarettes, uncomplicated; J45.20 Mild intermittent asthma, uncomplicated; J44.9 Chronic obstructive pulmonary disease, unspecified; R73.09 Other abnormal glucose; K02.9 Dental caries, unspecified; Z88.6 Allergy status to analgesic agent; Z59.0 Homelessness
CPT/HCPCS: 36415; 80053; 82947; 85027; 86780; U0003

== ENCOUNTER 2020-03-23 10:30 | Inpatient (IN) | payer OTHER ==
--- NOTE | 2020-03-23 10:37 | BHS.RME ---
Substance Use & Tx History - Substance Use History Alcohol Substance amount: six pack + 1.5 pints scotch Frequency of use: Daily Substance route: Oral Date of Last Use: 03/23/20 (started age ) Cocaine- Powder Substance amount: $40-60 Frequency of use: Daily Substance route: Inhalation (ex: sniffing or snorting) Date of Last Use: 03/23/20 Cocaine-Crack Substance amount: $50 Frequency of use: Daily Substance route: Smoking Date of Last Use: 03/23/20 Nicotine Substance amount: 4-5 ciggs Frequency of use: Daily Substance route: Smoking Date of Last Use: 03/23/20 Physical/Psych/Mental Status - Behavior General Behavior: Increased activity (restlessness, agitation) Eye Contact: Normal - Cooperativeness Cooperativeness: Cooperative - Thinking Thought Processes: Tight, Logical, Goal Directed - Physical Health Problems Is patient presently having any pain?: No Does patient presently have any injuries (include location): No Does patient currently have a fever: No Is patient : No CIWA Nausea/Vomitin Muscle Tremors: 3 Anxiety: 3 Agitation: 2 Paroxysmal Sweats: 2 Orientation: 0-Oriented Tacttile Disturbances: 1-Very Mild Itch/Numbness Auditory Disturbances: 1-Very Mild Visual Disturbances: 1-Very Mild Sensitivity Headache: 0-None Present CIWA-Ar Total Score: 15
[2020-03-23 11:10] VITALS: BMI 23.9
--- NOTE | 2020-03-23 11:15 | HP ---
CIWA Score Nausea/Vomitin Muscle Tremors: 3 Anxiety: 3 Agitation: 2 Paroxysmal Sweats: 2 Orientation: 0-Oriented Tacttile Disturbances: 1-Very Mild Itch/Numbness Auditory Disturbances: 1-Very Mild Visual Disturbances: 1-Very Mild Sensitivity Headache: 0-None Present CIWA-Ar Total Score: 15 - Admission Criteria OASAS Guidelines: Admission for Medically Managed Detox: Requires at least one of the followin. CIWA greater than 12 2. Seizures within the past 24 hours 3. Delirium tremens within the past 24 hours 4. Hallucinations within the past 24 hours 5. Acute intervention needed for co occurring medical disorder 6. Acute intervention needed for co occurring psychiatric disorder 7. Severe withdrawal that cannot be handled at a lower level of care (continued vomiting, continued diarrhea, abnormal vital signs) requiring intravenous medication and/or fluids 8. Admitting History and Physical - Admission Chief Complaint: Mr. Crawley is a 59 yo man who presents to [facility] requesting admission to detox for alcohol use disorder. History of Present Illness: Mr. Crawley is a 59 yo man who presents to [facility] requesting admission to detox for alcohol use disorder. He was last at [facility] in November, he completed detox at that time. However, he relapsed 2 months later in January. PMH: Asthma, fractured neck 2019: no surgery PSH; carpal tunnel left, left elbow, inguinal hernia x 2, intussusception Psych: none SOC: homeless Legal: none Substance Use History Alcohol Substance amount: six pack + 1.5 pints scotch Frequency of use: Daily Substance route: Oral Date of Last Use: 03/23/20 (started age 13 y) No seizures Blackous: multiple, last on eone week ago Admits to eyeopener Cocaine- Powder Substance amount: $40-60 Frequency of use: Daily Substance route: Inhalation (ex: sniffing or snorting) Date of Last Use: 03/23/20 Began in 2014 Cocaine-Crack Substance amount: $50 Frequency of use: Daily Substance route: Smoking Date of Last Use: 03/23/20 Began in 2014 Nicotine Substance amount: 4-5 ciggs Frequency of use: Daily Substance route: Smoking Date of Last Use: 03/23/20 Began age 16y History Source: Patient Limitations to Obtaining History: No Limitations - Smoking History Smoking history: Current every day smoker Have you smoked in the past 12 months: Yes Aproximately how many cigarettes per day: 5 - Alcohol/Substance Use Hx Alcohol Use: Yes Admission ROS [facility] Allergies/Adverse Reactions: Allergies Allergy/AdvReac Type Severity Reaction Status Date / Time No Known Allergies Allergy Verified 03/23/20 11:03 Exam Limitations: No Limitations - Ebola screening Have you traveled outside of the country in the last 21 days: No Have you been sick,other than usual withdrawal symptoms: No Do you have a fever: No - Review of Systems Constitutional: Unintentional Wgt. Loss (8 lbs) EENT: reports: Blurred Vision (right eye, chronic) Respiratory: reports: Shortness of Breath (yesterday) Cardiac: reports: No Symptoms Reported GI: reports: Nausea : reports: No Symptoms Reported Musculoskeletal: reports: Back Pain (since neck injury) Integumentary: reports: No Symptoms Reported Neuro: reports: No Symptoms reported Endocrine: reports: No Symptoms Reported Hematology: reports: No Symptoms Reported Psychiatric: reports: No Sypmtoms Reported Patient History - Patient Medical History Hx Asthma: Yes Hx Chronic Obstructive Pulmonary Disease (COPD): Yes Hx Cancer: No Hx Cardiac Disorders: No Hx Congestive Heart Failure: No Hx Hypertension: No Hx Hypercholesterolemia: No Hx Pacemaker: No HX Cerebrovascular Accident: No Hx Seizures: No Hx Dementia: No Hx Diabetes: No Hx Gastrointestinal Disorders: No Hx Liver Disease: No Hx Genitourinary Disorders: No Hx Sexually Transmitted Disorders: No Hx Renal Disease (ESRD): No Hx Thyroid Disease: No Hx Human Immunodeficiency Virus (HIV): No (last 07/07 negative) Hx Hepatitis C: No Hx Depression: No Hx Suicide Attempt: No Hx Bipolar Disorder: No Hx Schizophrenia: No - Patient Surgical History Past Surgical History: Yes Hx Neurologic Surgery: No Hx Cataract Extraction: No Hx Cardiac Surgery: No Hx Lung Surgery: No Hx Breast Surgery: No Hx Breast Biopsy: No Hx Abdominal Surgery: Yes (incarcerated hernia repair X2 in 07/05 [facility]) Hx Appendectomy: No Hx Cholecystectomy: No Hx Genitourinary Surgery: No Hx Section: No Hx Orthopedic Surgery: No Hx Hysterectomy: No Other Surgical History: ABSCESS TO GUM DRAINAGE Anesthesia Reaction: No - PPD History Date: 12/13/19 Results: negative - Smoking Cessation Smoking history: Current every day smoker Have you smoked in the past 12 months: Yes Aproximately how many cigarettes per day: 5 Cigars Per Day: 0 Hx Chewing Tobacco Use: No Initiated information on smoking cessation: Yes 'Breaking Loose' booklet given: 03/23/20 Admission Physical Exam [facility] - Vital Signs Vital Signs: Vital Signs - 24 hr 03/23/20 11:03 Temperature 97.3 F L Pulse Rate 65 Respiratory 12 Rate Blood Pressure 116/75 - Physical General Appearance: Yes: No Apparent Distress, Nourished, Appropriately Dressed HEENTM: Yes: EOMI, Hearing grossly Normal, Normocephalic, Normal Voice Respiratory: Yes: Lungs Clear, No Respiratory Distress, No Accessory Muscle Use Neck: Yes: Within Normal Limits Breast: Yes: Breast Exam Deferred Cardiology: Yes: Regular Rhythm, Regular Rate Abdominal: Yes: Normal Bowel Sounds, Non Tender Back: Yes: Normal Inspection Musculoskeletal: Yes: Gait Steady Extremities: Yes: Normal Inspection, Non-Tender Neurological: Yes: Alert, Normal Response Integumentary: Yes: Dry - Diagnostic (1) Alcohol dependence with uncomplicated withdrawal Current Visit: Yes Status: Acute (2) Cocaine dependence Current Visit: Yes Status: Acute Qualifiers: Substance use status: uncomplicated Qualified Code(s): F14.20 - Cocaine dependence, uncomplicated (3) Nicotine dependence Current Visit: Yes Status: Acute Qualifiers: Nicotine product type: cigarettes Substance use status: in withdrawal Qualified Code(s): F17.213 - Nicotine dependence, cigarettes, with withdrawal (4) Asthma Current Visit: Yes Status: Chronic Qualifiers: Asthma severity: mild Asthma persistence: intermittent Asthma complication type: unspecified Qualified Code(s): J45.20 - Mild intermittent asthma, uncomplicated Cleared for Admission [facility] - Detox or Rehab [facility] Level of Care: Medically Managed Detox Regimen/Protocol: Librium Breathalyzer - Breathalyzer Breathalyzer: 0.016 Urine Drug Screen - Test Device Lot number: [id number] Expiration date: 09/24/21 - Control Is test valid?: Yes - Results Drug screen NEGATIVE: No Urine drug screen results: ANGUS-Cocaine Inpatient Rehab Admission - Rehab Decision to Admit Inpatient rehab admission?: No
[2020-03-23] MEDS ORDERED: ALBUTEROL SO4 HFA INHALER IH PRN (11:18)
[2020-03-23] MEDS ORDERED: PATIENT'S OWN MEDICATION (NON-FORMULARY) (Prednisone [Prednisone 50 Mg Tablets] 50 MG) PO SCH (11:30)
[2020-03-23] MEDS ORDERED: BISMUTH SUBSALICYLATE 262 MG/15 ML BTL PO PRN (11:34)
[2020-03-23] MEDS ORDERED: MAG HYDROX/AL HYDROX/SIMETH 30 ML UNIT-DOSE CUP PO PRN (11:40)
[2020-03-23] MEDS ORDERED: MAGNESIUM HYDROX 2400MG/30ML ORAL SUSPENSION 30 ML CUP PO PRN (11:40)
[2020-03-23] MEDS ORDERED: METHOCARBAMOL 500 MG TABLET PO PRN (11:40)
[2020-03-23] MEDS ORDERED: chlordiazePOXIDE HCL 25 MG CAPSULE PO PRN (11:40)
[2020-03-23] MEDS ORDERED: MAGNESIUM CITRATE 300 ML BOTTLE PO PRN (11:40)
[2020-03-23] MEDS ORDERED: IBUPROFEN 400 MG TABLET (FP) PO PRN (11:40)
[2020-03-23] MEDS ORDERED: ONDANSETRON *ODT* 4 MG TABLET SL PRN (11:40)
[2020-03-23] MEDS ORDERED: NICOTINE POLACRILEX 2 MG GUM BUC PRN (11:40)
[2020-03-23] MEDS ORDERED: ACETAMINOPHEN 325 MG TABLET (FP) PO PRN ×2 (11:40)
[2020-03-23] MEDS ORDERED: MENTHOL/PHENOL 1 EACH UD MM PRN (11:40)
[2020-03-23] MEDS: predniSONE 40 MG, predniSONE 10 MG PO SCH (13:23)
[2020-03-23] MEDS: hydrOXYzine PAMOATE 25 MG CAPSULE (FP) PO SCH ×3 (13:24→22:35)
[2020-03-23 14:45] LABS: HEMATOCRIT 38.8 % (35.4-49); HEMOGLOBIN 12.8 GM/dL (11.7-16.9); MCH 28.8 pg (25.7-33.7); MEAN CELL VOLUME 87.3 fl (80-96); MEAN PLT VOLUME 8.6 fl (7.5-11.1); PLATELET COUNT 182 K/MM3 (134-434); RBC 4.45 M/mm3 (4.00-5.60); WHITE BLOOD COUNT 4.3 K/mm3 (4.0-10.0)
[2020-03-23 14:55] LABS: ALBUMIN 3.5 g/dl (3.4-5.0); BILIRUBIN,TOTAL 0.3 mg/dL (0.2-1); BLOOD UREA NITROGEN 13.8 mg/dL (7-18); CALCIUM 8.6 mg/dL (8.5-10.1); CREATININE 1.3 mg/dL (0.55-1.3); POTASSIUM 3.7 mmol/L (3.5-5.1); TOT PROT 6.7 g/dl (6.4-8.2)
[2020-03-23] MEDS: chlordiazePOXIDE HCL 25 MG CAPSULE PO SCH ×2 (17:48→22:35)
[2020-03-23] MEDS ORDERED: MELATONIN 5 MG TABLETS PO SCH (22:00)
[2020-03-23] MEDS ORDERED: THIAMINE HCL 100 MG TABLET (FP) PO SCH (22:00)
[2020-03-23] MEDS: GABAPENTIN 300 MG CAPSULE PO SCH (22:35)
[2020-03-23] MEDS: BUDESONIDE/FORMETEROL FUMARATE 160/4.5 mcg INHALER IH SCH (22:37)
[2020-03-24] MEDS: hydrOXYzine PAMOATE 25 MG CAPSULE (FP) PO SCH ×4 (05:25→18:41)
[2020-03-24] MEDS: chlordiazePOXIDE HCL 25 MG CAPSULE PO SCH ×3 (05:25→18:40)
--- NOTE | 2020-03-24 09:55 | PN ---
S CIWA - CIWA Score Nausea/Vomitin-Mild Nausea/No Vomiting Muscle Tremors: 2 Anxiety: 2 Agitation: 1-Slight > Activity Paroxysmal Sweats: 1-Minimal Palms Moist Orientation: 1-Uncertain about Date (day of week) Tacttile Disturbances: 0-None Auditory Disturbances: 0-None Visual Disturbances: 2-Mild Sensitivity Headache: 2-Mild CIWA-Ar Total Score: 12 BHS Progress Note (SOAP) Subjective: 59 years old male was admitted on 03/23/20 for alcohol withdrawal sx management ate breakfast resting in bed prefers to stay in bed feels tired limited conversation with staff serum glucose within acceptable range conventional underwriter called [id number] last medication filled 10/2018 call [phone] unable to speak with pharmacist at this time Objective: 03/24/20 09:57 Vital Signs - 24 hr 03/23/20 03/23/20 03/23/20 11:03 12:30 16:55 Temperature 97.3 F L 97.1 F L 98.0 F Pulse Rate 65 56 L 59 L Respiratory 12 18 18 Rate Blood Pressure 116/75 125/73 124/74 O2 Sat by Pulse 100 100 Oximetry (%) 03/23/20 03/24/20 03/24/20 21:00 06:29 08:59 Temperature 98.0 F 97.8 F 98.0 F Pulse Rate 68 63 54 L Respiratory 16 18 18 Rate Blood Pressure 131/76 135/87 124/81 O2 Sat by Pulse 95 96 Oximetry (%) Laboratory Tests 03/23/20 03/23/20 03/23/20 12:00 12:00 12:00 WBC 4.3 RBC 4.45 Hgb 12.8 Hct 38.8 MCV 87.3 MCH 28.8 MCHC 33.0 RDW 14.0 Plt Count 182 MPV 8.6 Sodium 142 Potassium 3.7 Chloride 108 H Carbon Dioxide 31 Anion Gap 4 L BUN 13.8 Creatinine 1.3 Est GFR (CKD-EPI)AfAm 69.71 Est GFR (CKD-EPI)NonAf 60.14 POC Glucometer Random Glucose 90 Calcium 8.6 Total Bilirubin 0.3 AST 34 ALT 30 Alkaline Phosphatase 77 Total Protein 6.7 Albumin 3.5 Syphilis Serology Non-reactive COVID-19 ([facility]) 03/23/20 03/23/20 03/24/20 12:15 16:33 05:24 WBC RBC Hgb Hct MCV MCH MCHC RDW Plt Count MPV Sodium Potassium Chloride Carbon Dioxide Anion Gap BUN Creatinine Est GFR (CKD-EPI)AfAm Est GFR (CKD-EPI)NonAf POC Glucometer 117 122 Random Glucose Calcium Total Bilirubin AST ALT Alkaline Phosphatase Total Protein Albumin Syphilis Serology COVID-19 ([facility]) Not detected lab noted Assessment: 03/24/20 09:57 alcohol withdrawal asthma prednison treatment ended at 03/30/20 03/24/20 09:58 Plan: librium regiment
[2020-03-24] MEDS ORDERED: PRENATAL VITAMINS W/ FOLIC ACID TABLET (FP) PO SCH (10:00)
[2020-03-24] MEDS ORDERED: NICOTINE 7 MG/24 HOURS TOPICAL PATCH TD SCH (10:00)
[2020-03-24] MEDS ORDERED: TIOTROPIUM BROMIDE 2.5 MCG (SPIRIVA) RESPIMAT INHALER IH SCH (10:00)
[2020-03-24] MEDS: BUDESONIDE/FORMETEROL FUMARATE 160/4.5 mcg INHALER IH SCH (10:16)
[2020-03-24] MEDS: predniSONE 40 MG, predniSONE 10 MG PO SCH (10:17)
[2020-03-24] MEDS: GABAPENTIN 300 MG CAPSULE PO SCH (10:17)
[2020-03-24 17:30] VITALS: BP 129/77; PULSE 61; TEMP 98.4
--- NOTE | 2020-03-24 19:08 | DS ---
[facility] Detox Discharge Summary Admission Date: 03/23/20 Discharge Date: 03/24/20 - History Present History: Alcohol Dependence, Cocaine Dependence Additional Comments: Pt is a 59 yo M who was admitted for detox from alcohol on 03/23. Patient had improvement from time of admission to today (CIWA score improved from 15 to 12). Patient reports that he wants to leave AMA as he feels he does not need to be in detox anymore. Pt informed of risks of leaving against medical advice (AMA) including but not limited to: - worsening alcohol withdrawal symptoms - i.e. tremors, nausea, vomiting, delirium, and seizures - relapse of alcohol and other substance use - worsening of his other chronic medical conditions - Pt reports understanding of these risks and confirms he would still like to leave AMA. - Physical Exam Results Vital Signs: Vital Signs Temperature 98.4 F 03/24/20 16:55 Pulse Rate 61 03/24/20 16:55 Respiratory Rate 17 03/24/20 16:55 Blood Pressure 129/77 03/24/20 16:55 O2 Sat by Pulse Oximetry (%) 97 03/24/20 16:55 - Treatment Hospital Course: Detox Protocol Followed (pt leaving AMA before completion of detox protocol) - Medication Discharge Medications: Ambulatory Orders Prednisone [Prednisone 50 MG TABLETS] 50 mg PO DAILY 12/11/19 Albuterol Sulfate Inhaler - [Ventolin HFA Inhaler -] 2 inh PO Q4H PRN 30 Days #1 inhaler 12/15/19 Budesonide/Formeterol Fumarate [SYMBICORT 160/4.5mcg -] 1 inh PO BID #1 inhaler 12/15/19 Tiotropium [place] [Spiriva] 1 inh PO DAILY #1 cap.w.dev 12/15/19 Gabapentin [Neurontin -] 300 mg PO BID 03/23/20 Ipratropium/Albuterol Sulfate [Combivent Respimat Inhal [place]] 4 gm IH BID PRN 03/23/20 - Diagnosis (1) Alcohol dependence with uncomplicated withdrawal Current Visit: Yes Status: Acute (2) Cocaine dependence Current Visit: Yes Status: Acute Qualifiers: Substance use status: uncomplicated Qualified Code(s): F14.20 - Cocaine dep endence, uncomplicated (3) Nicotine dependence Current Visit: Yes Status: Acute Qualifiers: Nicotine product type: cigarettes Substance use status: in withdrawal Qualified Code(s): F17.213 - Nicotine dependence, cigarettes, with withdrawal (4) COPD (chronic obstructive pulmonary disease) Current Visit: No Status: Chronic Qualifiers: Emphysema type: unspecified - AMA Did Patient Leave Against Medical Advice: Yes (pt leaving AMA before completion of detox protocol)
[2020-03-25] MEDS ORDERED: chlordiazePOXIDE HCL 25 MG CAPSULE PO SCH (05:00)
[2020-03-26] MEDS ORDERED: chlordiazePOXIDE HCL 10 MG CAPSULE PO PRN
[2020-03-26] MEDS ORDERED: chlordiazePOXIDE HCL 10 MG CAPSULE PO SCH (05:00)
[2020-03-27] MEDS ORDERED: chlordiazePOXIDE HCL 10 MG CAPSULE PO SCH (05:00)
[2020-03-28] MEDS ORDERED: chlordiazePOXIDE HCL 10 MG CAPSULE PO ONE (05:00)
== END 2020-03-24 18:30 | disposition left against medical advice (07) | DRG 770 ==
LOC: YASAS 10:30 → Y3N 11:18
PROVIDERS: ADMIT Allergy & Immunology; ATTEND Allergy & Immunology
PROC: HZ2ZZZZ Detoxification Services for Substance Abuse Treatment (ICD-10-PCS; principal; 2020-03-23)
DX: F10.230 Alcohol dependence with withdrawal, uncomplicated (principal); F14.20 Cocaine dependence, uncomplicated; F17.213 Nicotine dependence, cigarettes, with withdrawal; J44.9 Chronic obstructive pulmonary disease, unspecified; J45.20 Mild intermittent asthma, uncomplicated; Z87.81 Personal history of (healed) traumatic fracture; Z98.890 Other specified postprocedural states; Z59.0 Homelessness
CPT/HCPCS: 36415; 80053; 82962; 85027; 86780; U0003

== ENCOUNTER 2020-06-01 10:17 | Inpatient (IN) | payer OTHER ==
[2020-06-01 11:03] VITALS: BMI 24.1
[2020-06-01] MEDS ORDERED: ALBUTEROL SO4 HFA INHALER IH PRN (11:48)
[2020-06-01] MEDS ORDERED: MAGNESIUM HYDROX 2400MG/30ML ORAL SUSPENSION 30 ML CUP PO PRN (11:51)
[2020-06-01] MEDS ORDERED: ONDANSETRON *ODT* 4 MG TABLET SL PRN (11:51)
[2020-06-01] MEDS ORDERED: MENTHOL/PHENOL 1 EACH UD MM PRN (11:51)
[2020-06-01] MEDS ORDERED: BISMUTH SUBSALICYLATE 262 MG/15 ML BTL PO PRN (11:51)
[2020-06-01] MEDS ORDERED: ACETAMINOPHEN 325 MG TABLET (FP) PO PRN ×2 (11:51)
[2020-06-01] MEDS ORDERED: MAGNESIUM CITRATE 300 ML BOTTLE PO PRN (11:51)
[2020-06-01] MEDS ORDERED: NICOTINE POLACRILEX 2 MG GUM BUC PRN (11:51)
[2020-06-01] MEDS ORDERED: MAG HYDROX/AL HYDROX/SIMETH 30 ML UNIT-DOSE CUP PO PRN (11:51)
[2020-06-01] MEDS ORDERED: NICOTINE 14 MG/24 HOURS TOPICAL PATCH TD ONE (12:34)
[2020-06-01] MEDS: NICOTINE 14 MG/24 HOURS TOPICAL PATCH TD SCH (12:34)
[2020-06-01 14:12] LABS: POTASSIUM 3.6 mmol/L (3.5-5.1)
[2020-06-01 14:14] LABS: CALCIUM 8.5 mg/dL (8.5-10.1); HEMATOCRIT 37.8 % (35.4-49); HEMOGLOBIN 12.2 GM/dL (11.7-16.9); MCH 27.9 pg (25.7-33.7); MCHC 32.4 g/dl (32.0-35.9); MEAN CELL VOLUME 86.1 fl (80-96); MEAN PLT VOLUME 8.3 fl (7.5-11.1); PLATELET COUNT 219 K/MM3 (134-434); RBC 4.39 M/mm3 (4.00-5.60); RDW 15.1 % (11.9-15.9); WHITE BLOOD COUNT 4.4 K/mm3 (4.0-10.0)
[2020-06-01 14:15] LABS: ALBUMIN 3.4 g/dl (3.4-5.0)
[2020-06-01 14:18] LABS: CREATININE 1.5 mg/dL (0.55-1.3)
[2020-06-01 14:19] LABS: BILIRUBIN,TOTAL 0.7 mg/dL (0.2-1); TOT PROT 6.6 g/dl (6.4-8.2)
[2020-06-01] MEDS: chlordiazePOXIDE HCL 25 MG CAPSULE PO PRN (14:31)
[2020-06-01] MEDS: hydrOXYzine PAMOATE 25 MG CAPSULE (FP) PO SCH ×3 (14:31→22:38)
[2020-06-01] MEDS: METHOCARBAMOL 500 MG TABLET PO PRN (14:31)
[2020-06-01] MEDS: chlordiazePOXIDE HCL 25 MG CAPSULE PO SCH ×2 (17:38→22:38)
[2020-06-01] MEDS: IBUPROFEN 400 MG TABLET (FP) PO PRN (17:40)
[2020-06-01] MEDS: BUDESONIDE/FORMETEROL FUMARATE 160/4.5 mcg INHALER IH SCH (22:37)
[2020-06-01] MEDS: THIAMINE HCL 100 MG TABLET (FP) PO SCH (22:38)
[2020-06-01] MEDS: MELATONIN 5 MG TABLETS PO SCH (22:38)
[2020-06-02] MEDS: chlordiazePOXIDE HCL 25 MG CAPSULE PO SCH ×4 (05:11→22:22)
[2020-06-02] MEDS: hydrOXYzine PAMOATE 25 MG CAPSULE (FP) PO SCH ×5 (05:11→22:22)
[2020-06-02] MEDS: METHOCARBAMOL 500 MG TABLET PO PRN ×3 (05:12→22:23)
[2020-06-02] MEDS: NICOTINE 14 MG/24 HOURS TOPICAL PATCH TD SCH (10:31)
[2020-06-02] MEDS: PRENATAL VITAMINS W/ FOLIC ACID TABLET (FP) PO SCH (10:31)
[2020-06-02] MEDS: BUDESONIDE/FORMETEROL FUMARATE 160/4.5 mcg INHALER IH SCH ×2 (10:31→22:22)
[2020-06-02] MEDS: TIOTROPIUM BROMIDE PO PRN (11:45)
[2020-06-02] MEDS: THIAMINE HCL 100 MG TABLET (FP) PO SCH (22:22)
[2020-06-02] MEDS: MELATONIN 5 MG TABLETS PO SCH (22:23)
[2020-06-03] MEDS: chlordiazePOXIDE HCL 25 MG CAPSULE PO PRN (02:48)
[2020-06-03] MEDS: chlordiazePOXIDE HCL 25 MG CAPSULE PO SCH ×4 (05:26→22:13)
[2020-06-03] MEDS: hydrOXYzine PAMOATE 25 MG CAPSULE (FP) PO SCH ×5 (05:27→22:13)
[2020-06-03] MEDS: BUDESONIDE/FORMETEROL FUMARATE 160/4.5 mcg INHALER IH SCH ×2 (10:26→22:13)
[2020-06-03] MEDS: TIOTROPIUM BROMIDE PO PRN (10:26)
[2020-06-03] MEDS: PRENATAL VITAMINS W/ FOLIC ACID TABLET (FP) PO SCH (10:27)
[2020-06-03] MEDS: NICOTINE 14 MG/24 HOURS TOPICAL PATCH TD SCH (10:27)
[2020-06-03] MEDS: METHOCARBAMOL 500 MG TABLET PO PRN (13:06)
[2020-06-03] MEDS: IBUPROFEN 400 MG TABLET (FP) PO PRN (18:02)
[2020-06-03] MEDS: THIAMINE HCL 100 MG TABLET (FP) PO SCH (22:13)
[2020-06-03] MEDS: MELATONIN 5 MG TABLETS PO SCH (22:13)
[2020-06-04] MEDS ORDERED: chlordiazePOXIDE HCL 10 MG CAPSULE PO PRN
[2020-06-04] MEDS: chlordiazePOXIDE HCL 10 MG CAPSULE PO SCH ×4 (05:37→22:10)
[2020-06-04] MEDS: hydrOXYzine PAMOATE 25 MG CAPSULE (FP) PO SCH ×5 (05:37→22:11)
[2020-06-04] MEDS: PRENATAL VITAMINS W/ FOLIC ACID TABLET (FP) PO SCH (10:22)
[2020-06-04] MEDS: BUDESONIDE/FORMETEROL FUMARATE 160/4.5 mcg INHALER IH SCH ×2 (10:23→22:12)
[2020-06-04] MEDS: TIOTROPIUM BROMIDE PO PRN (10:23)
[2020-06-04] MEDS: NICOTINE 14 MG/24 HOURS TOPICAL PATCH TD SCH (10:24)
[2020-06-04 11:10] LABS: CREATININE 1.1 mg/dL (0.55-1.3)
[2020-06-04] MEDS: AMMONIUM LACTATE 12% LOTION 225 GM BOTTLE TP SCH ×2 (13:10→22:13)
[2020-06-04] MEDS: METHOCARBAMOL 500 MG TABLET PO PRN (17:45)
[2020-06-04] MEDS: THIAMINE HCL 100 MG TABLET (FP) PO SCH (22:11)
[2020-06-04] MEDS: MELATONIN 5 MG TABLETS PO SCH (22:11)
[2020-06-05] MEDS: METHOCARBAMOL 500 MG TABLET PO PRN ×3 (01:43→17:09)
[2020-06-05] MEDS: hydrOXYzine PAMOATE 25 MG CAPSULE (FP) PO SCH ×5 (05:34→22:06)
[2020-06-05] MEDS: chlordiazePOXIDE HCL 10 MG CAPSULE PO SCH ×2 (05:34→17:07)
[2020-06-05] MEDS: PRENATAL VITAMINS W/ FOLIC ACID TABLET (FP) PO SCH (10:10)
[2020-06-05] MEDS: BUDESONIDE/FORMETEROL FUMARATE 160/4.5 mcg INHALER IH SCH ×2 (10:10→22:07)
[2020-06-05] MEDS: AMMONIUM LACTATE 12% LOTION 225 GM BOTTLE TP SCH ×2 (10:12→22:08)
[2020-06-05] MEDS: NICOTINE 14 MG/24 HOURS TOPICAL PATCH TD SCH (10:12)
[2020-06-05] MEDS: TIOTROPIUM BROMIDE PO PRN (10:13)
[2020-06-05] MEDS: MELATONIN 5 MG TABLETS PO SCH (22:05)
[2020-06-05] MEDS: THIAMINE HCL 100 MG TABLET (FP) PO SCH (22:06)
[2020-06-06] MEDS ORDERED: chlordiazePOXIDE HCL 10 MG CAPSULE PO ONE (05:00)
[2020-06-06] MEDS: hydrOXYzine PAMOATE 25 MG CAPSULE (FP) PO SCH ×4 (05:06→18:15)
[2020-06-06] MEDS: AMMONIUM LACTATE 12% LOTION 225 GM BOTTLE TP SCH (09:44)
[2020-06-06] MEDS: NICOTINE 14 MG/24 HOURS TOPICAL PATCH TD SCH (09:45)
[2020-06-06] MEDS: BUDESONIDE/FORMETEROL FUMARATE 160/4.5 mcg INHALER IH SCH (09:45)
[2020-06-06] MEDS: PRENATAL VITAMINS W/ FOLIC ACID TABLET (FP) PO SCH (09:45)
[2020-06-06] MEDS: METHOCARBAMOL 500 MG TABLET PO PRN ×2 (09:47→18:17)
[2020-06-06] MEDS: IBUPROFEN 400 MG TABLET (FP) PO PRN (13:07)
[2020-06-06 21:15] VITALS: BP 123/79; PULSE 61; TEMP 98.2
== END 2020-06-06 22:10 | disposition other institution (70) | DRG 774 ==
LOC: YASAS 10:17 → Y3N 11:22
PROVIDERS: ADMIT Allergy & Immunology; ATTEND Allergy & Immunology
PROC: HZ2ZZZZ Detoxification Services for Substance Abuse Treatment (ICD-10-PCS; principal; 2020-06-01)
DX: F10.230 Alcohol dependence with withdrawal, uncomplicated (principal); F14.20 Cocaine dependence, uncomplicated; F17.210 Nicotine dependence, cigarettes, uncomplicated; J45.20 Mild intermittent asthma, uncomplicated; J44.9 Chronic obstructive pulmonary disease, unspecified; Z59.0 Homelessness
CPT/HCPCS: 36415; 80053; 82565; 85027; 86780; C9803; U0003

== ENCOUNTER 2020-06-06 22:15 | Inpatient (IN) | payer OTHER ==
[2020-06-07] MEDS ORDERED: MAGNESIUM HYDROX 2400MG/30ML ORAL SUSPENSION 30 ML CUP PO PRN (00:06)
[2020-06-07] MEDS ORDERED: NICOTINE POLACRILEX 2 MG GUM BUC PRN (00:06)
[2020-06-07] MEDS ORDERED: guaiFENesin 200 MG/10 ML 10 ML UNIT-DOSE CUPS PO PRN (00:06)
[2020-06-07] MEDS ORDERED: ACETAMINOPHEN 325 MG TABLET (FP) PO PRN (00:06)
[2020-06-07] MEDS ORDERED: MAGNESIUM CITRATE 300 ML BOTTLE PO PRN (00:06)
[2020-06-07] MEDS ORDERED: LOPERAMIDE HCL 2 MG CAPSULE PO PRN (00:06)
[2020-06-07] MEDS ORDERED: MENTHOL/PHENOL 1 EACH UD MM PRN (00:06)
[2020-06-07] MEDS ORDERED: P-EPHED 60MG/TRIPROLIDI 2.5MG TABLET PO PRN (00:06)
[2020-06-07] MEDS ORDERED: TIOTROPIUM BROMIDE 2.5 MCG (SPIRIVA) RESPIMAT INHALER IH PRN (00:07)
[2020-06-07] MEDS: ALBUTEROL SO4 HFA INHALER IH PRN (02:40)
[2020-06-07] MEDS: IBUPROFEN 400 MG TABLET (FP) PO PRN ×2 (06:12→22:02)
[2020-06-07] MEDS: PRENATAL VITAMINS W/ FOLIC ACID TABLET (FP) PO SCH (09:35)
[2020-06-07] MEDS: BUDESONIDE/FORMETEROL FUMARATE 160/4.5 mcg INHALER IH SCH ×2 (09:36→22:00)
[2020-06-07] MEDS: NICOTINE 14 MG/24 HOURS TOPICAL PATCH TD SCH (09:37)
[2020-06-07] MEDS: MELATONIN 5 MG TABLETS PO SCH (22:00)
[2020-06-07] MEDS: THIAMINE HCL 100 MG TABLET (FP) PO SCH (22:00)
[2020-06-08] MEDS: IBUPROFEN 400 MG TABLET (FP) PO PRN ×2 (06:17→21:16)
[2020-06-08] MEDS ORDERED: MASKS NR ONE (07:19)
[2020-06-08] MEDS: PRENATAL VITAMINS W/ FOLIC ACID TABLET (FP) PO SCH (09:59)
[2020-06-08] MEDS: NICOTINE 14 MG/24 HOURS TOPICAL PATCH TD SCH (10:00)
[2020-06-08] MEDS: BUDESONIDE/FORMETEROL FUMARATE 160/4.5 mcg INHALER IH SCH ×2 (10:00→21:16)
[2020-06-08] MEDS ORDERED: hydrOXYzine PAMOATE 25 MG CAPSULE (FP) PO SCH (12:00)
[2020-06-08] MEDS ORDERED: PNEUMOCOCCAL 23 VACCINE 0.5 ML VIAL IM ONE (12:00)
[2020-06-08] MEDS ORDERED: PNEUMOC 13-VAL CONJ-DIP CRM/PF 0.5 ML DISP.SYRIN IM ONE (12:00)
[2020-06-08] MEDS: METHOCARBAMOL 500 MG TABLET PO SCH ×2 (13:27→21:16)
[2020-06-08] MEDS: hydrOXYzine PAMOATE 25 MG CAPSULE (FP) PO PRN ×2 (13:27→21:17)
[2020-06-08] MEDS: THIAMINE HCL 100 MG TABLET (FP) PO SCH (21:16)
[2020-06-08] MEDS: MELATONIN 5 MG TABLETS PO SCH (21:16)
[2020-06-09] MEDS: METHOCARBAMOL 500 MG TABLET PO SCH ×3 (06:59→21:24)
[2020-06-09] MEDS: IBUPROFEN 400 MG TABLET (FP) PO PRN ×2 (07:00→21:24)
[2020-06-09] MEDS: PRENATAL VITAMINS W/ FOLIC ACID TABLET (FP) PO SCH (09:23)
[2020-06-09] MEDS: NICOTINE 14 MG/24 HOURS TOPICAL PATCH TD SCH (09:23)
[2020-06-09] MEDS: hydrOXYzine PAMOATE 25 MG CAPSULE (FP) PO PRN ×2 (09:24→21:25)
[2020-06-09] MEDS: BUDESONIDE/FORMETEROL FUMARATE 160/4.5 mcg INHALER IH SCH ×2 (09:24→21:24)
[2020-06-09] MEDS ORDERED: AMMONIUM LACTATE 12% LOTION 225 GM BOTTLE TP PRN (09:40)
[2020-06-09] MEDS: THIAMINE HCL 100 MG TABLET (FP) PO SCH (21:25)
[2020-06-09] MEDS: MELATONIN 5 MG TABLETS PO SCH (21:25)
[2020-06-10] MEDS: IBUPROFEN 400 MG TABLET (FP) PO PRN ×2 (06:11→17:35)
[2020-06-10] MEDS: METHOCARBAMOL 500 MG TABLET PO SCH ×3 (06:12→21:06)
[2020-06-10] MEDS: MAG HYDROX/AL HYDROX/SIMETH 30 ML UNIT-DOSE CUP PO PRN ×2 (08:44→17:34)
[2020-06-10] MEDS: NICOTINE 14 MG/24 HOURS TOPICAL PATCH TD SCH (09:23)
[2020-06-10] MEDS: PRENATAL VITAMINS W/ FOLIC ACID TABLET (FP) PO SCH (09:24)
[2020-06-10] MEDS: BUDESONIDE/FORMETEROL FUMARATE 160/4.5 mcg INHALER IH SCH ×2 (09:24→21:05)
[2020-06-10] MEDS: hydrOXYzine PAMOATE 25 MG CAPSULE (FP) PO PRN (21:06)
[2020-06-10] MEDS: MELATONIN 5 MG TABLETS PO SCH (21:06)
[2020-06-10] MEDS: THIAMINE HCL 100 MG TABLET (FP) PO SCH (21:06)
[2020-06-11] MEDS: IBUPROFEN 400 MG TABLET (FP) PO PRN ×2 (01:41→14:28)
[2020-06-11] MEDS: METHOCARBAMOL 500 MG TABLET PO SCH ×3 (06:08→21:15)
[2020-06-11] MEDS: NICOTINE 14 MG/24 HOURS TOPICAL PATCH TD SCH (09:29)
[2020-06-11] MEDS: BUDESONIDE/FORMETEROL FUMARATE 160/4.5 mcg INHALER IH SCH ×2 (09:29→21:15)
[2020-06-11] MEDS: PRENATAL VITAMINS W/ FOLIC ACID TABLET (FP) PO SCH (09:29)
[2020-06-11] MEDS: hydrOXYzine PAMOATE 25 MG CAPSULE (FP) PO PRN (09:30)
[2020-06-11] MEDS ORDERED: MELATONIN 5 MG TABLETS PO SCH (09:34)
[2020-06-11] MEDS: MAG HYDROX/AL HYDROX/SIMETH 30 ML UNIT-DOSE CUP PO PRN ×2 (09:51→18:03)
[2020-06-11] MEDS: THIAMINE HCL 100 MG TABLET (FP) PO SCH (21:15)
[2020-06-12] MEDS: METHOCARBAMOL 500 MG TABLET PO SCH ×2 (06:59→13:57)
[2020-06-12] MEDS: IBUPROFEN 400 MG TABLET (FP) PO PRN ×2 (07:00→13:57)
[2020-06-12] MEDS: ALBUTEROL SO4 HFA INHALER IH PRN (07:01)
[2020-06-12 07:10] VITALS: BP 107/68; PULSE 62; TEMP 97.8
[2020-06-12] MEDS: NICOTINE 14 MG/24 HOURS TOPICAL PATCH TD SCH (09:43)
[2020-06-12] MEDS: PRENATAL VITAMINS W/ FOLIC ACID TABLET (FP) PO SCH (09:43)
[2020-06-12] MEDS: hydrOXYzine PAMOATE 25 MG CAPSULE (FP) PO PRN (09:44)
[2020-06-12] MEDS: BUDESONIDE/FORMETEROL FUMARATE 160/4.5 mcg INHALER IH SCH (09:44)
== END 2020-06-12 19:50 | disposition home or self-care (01) | DRG 772 ==
LOC: YASAS 22:15 → Y5N 22:16
PROVIDERS: ADMIT Allergy & Immunology; ATTEND Allergy & Immunology
PROC: HZ42ZZZ Group Counseling for Substance Abuse Treatment, Cognitive-Behavioral (ICD-10-PCS; principal; 2020-06-06)
DX: F10.20 Alcohol dependence, uncomplicated (principal); F14.20 Cocaine dependence, uncomplicated; F17.210 Nicotine dependence, cigarettes, uncomplicated; J45.20 Mild intermittent asthma, uncomplicated; J44.9 Chronic obstructive pulmonary disease, unspecified
CPT/HCPCS: 90732; C9803; G0009; U0003

== ENCOUNTER 2021-02-26 15:08 | Inpatient (IN) | payer OTHER ==
[2021-02-26 18:17] VITALS: BMI 15.0
[2021-02-26] MEDS ORDERED: ALBUTEROL SO4 HFA INHALER IH PRN (20:07)
[2021-02-26] MEDS ORDERED: MAGNESIUM HYDROX 2400MG/30ML ORAL SUSPENSION 30 ML CUP PO PRN (20:08)
[2021-02-26] MEDS ORDERED: BISMUTH SUBSALICYLATE 524 MG/30 ML PO PRN (20:08)
[2021-02-26] MEDS ORDERED: ACETAMINOPHEN 325 MG TABLET (FP) PO PRN ×2 (20:08)
[2021-02-26] MEDS ORDERED: METHOCARBAMOL 500 MG TABLET PO PRN (20:08)
[2021-02-26] MEDS ORDERED: ONDANSETRON *ODT* 4 MG TABLET SL PRN (20:08)
[2021-02-26] MEDS ORDERED: MAG HYDROX/AL HYDROX/SIMETH 30 ML UNIT-DOSE CUP PO PRN (20:08)
[2021-02-26] MEDS ORDERED: MAGNESIUM CITRATE 300 ML BOTTLE PO PRN (20:08)
[2021-02-26] MEDS ORDERED: MENTHOL/PHENOL 1 EACH UD MM PRN (20:08)
[2021-02-26] MEDS ORDERED: IBUPROFEN 400 MG TABLET (FP) PO PRN (20:08)
[2021-02-26] MEDS ORDERED: diazePAM 5 MG TABLET PO PRN (20:10)
[2021-02-26] MEDS ORDERED: MELATONIN 5 MG TABLETS PO SCH (22:00)
[2021-02-26] MEDS ORDERED: METHOCARBAMOL 500 MG TABLET ONE (23:49)
[2021-02-26] MEDS: BUDESONIDE/FORMETEROL FUMARATE 160/4.5 mcg INHALER IH SCH (23:53)
[2021-02-26] MEDS: THIAMINE HCL 100 MG TABLET (FP) PO SCH (23:53)
[2021-02-27] MEDS ORDERED: diazePAM 5 MG TABLET PO PRN (08:26)
[2021-02-27] MEDS: LIDOCAINE 5% TOPICAL PATCH TP SCH (11:17)
[2021-02-27] MEDS: BUDESONIDE/FORMETEROL FUMARATE 160/4.5 mcg INHALER IH SCH ×2 (11:21→22:26)
[2021-02-27] MEDS ORDERED: NICOTINE 7 MG/24 HOURS TOPICAL PATCH TD ONE (11:21)
[2021-02-27] MEDS: NICOTINE 7 MG/24 HOURS TOPICAL PATCH TD SCH (11:21)
[2021-02-27] MEDS: PRENATAL VITAMINS W/ FOLIC ACID TABLET (FP) PO SCH (11:21)
[2021-02-27] MEDS ORDERED: diazePAM 5 MG TABLET ONE (11:23)
[2021-02-27] MEDS: diazePAM 5 MG TABLET PO SCH ×3 (11:24→22:26)
[2021-02-27] MEDS: MELATONIN 5 MG TABLETS PO SCH (22:25)
[2021-02-27] MEDS: THIAMINE HCL 100 MG TABLET (FP) PO SCH (22:26)
[2021-02-27] MEDS: LIDOCAINE PATCH REMOVAL MC SCH (22:27)
[2021-02-28] MEDS: diazePAM 5 MG TABLET PO SCH ×3 (05:43→18:22)
[2021-02-28] MEDS: LIDOCAINE 5% TOPICAL PATCH TP SCH (10:58)
[2021-02-28] MEDS: NICOTINE 7 MG/24 HOURS TOPICAL PATCH TD SCH (10:58)
[2021-02-28] MEDS: PRENATAL VITAMINS W/ FOLIC ACID TABLET (FP) PO SCH (10:58)
[2021-02-28] MEDS: BUDESONIDE/FORMETEROL FUMARATE 160/4.5 mcg INHALER IH SCH (10:59)
[2021-02-28] MEDS ORDERED: ALBUTEROL SO4 0.083% IH SOL 2.5 MG/3 ML VIAL.NEB. NEB PRN (16:50)
[2021-03-01] MEDS: MELATONIN 5 MG TABLETS PO SCH ×2 (00:25→22:39)
[2021-03-01] MEDS: LIDOCAINE PATCH REMOVAL MC SCH ×2 (00:26→22:42)
[2021-03-01] MEDS: BUDESONIDE/FORMETEROL FUMARATE 160/4.5 mcg INHALER IH SCH ×3 (00:26→22:39)
[2021-03-01] MEDS: diazePAM 5 MG TABLET PO SCH ×4 (00:27→22:38)
[2021-03-01] MEDS: THIAMINE HCL 100 MG TABLET (FP) PO SCH ×2 (00:28→22:38)
[2021-03-01] MEDS: LIDOCAINE 5% TOPICAL PATCH TP SCH (10:27)
[2021-03-01] MEDS: PRENATAL VITAMINS W/ FOLIC ACID TABLET (FP) PO SCH (10:27)
[2021-03-01] MEDS: hydrOXYzine PAMOATE 25 MG CAPSULE (FP) PO PRN ×2 (10:28→15:01)
[2021-03-01] MEDS: NICOTINE 7 MG/24 HOURS TOPICAL PATCH TD SCH (10:29)
[2021-03-01 16:05] LABS: HEMOGLOBIN 12.9 GM/dL (11.7-16.9); MCH 28.3 pg (25.7-33.7); MEAN CELL VOLUME 85.8 fl (80-96); MEAN PLT VOLUME 8.7 fl (7.5-11.1); PLATELET COUNT 174 10^3/uL (134-434); RBC 4.54 M/mm3 (4.00-5.60); RDW 14.4 % (11.9-15.9); WHITE BLOOD COUNT 3.6 K/mm3 (4.0-10.0)
[2021-03-01 16:53] LABS: CALCIUM 8.4 mg/dL (8.5-10.1)
[2021-03-01 16:55] LABS: ALBUMIN 3.2 g/dl (3.4-5.0); BLOOD UREA NITROGEN 12.8 mg/dL (7-18)
[2021-03-01 16:58] LABS: CREATININE 0.9 mg/dL (0.55-1.3)
[2021-03-01 16:59] LABS: BILIRUBIN,TOTAL 0.6 mg/dL (0.2-1); TOT PROT 6.4 g/dl (6.4-8.2)
[2021-03-01 17:22] LABS: HIV INTERPRETATION NEGATIVE (NEGATIVE)
[2021-03-01 19:01] LABS: ANISOCYTOSIS 1+; MACROCYTOSIS 0; PLATELET ESTIMATE NORMAL
[2021-03-02] MEDS: diazePAM 5 MG TABLET PO SCH ×2 (07:06→18:38)
[2021-03-02] MEDS: LIDOCAINE 5% TOPICAL PATCH TP SCH (10:05)
[2021-03-02] MEDS: NICOTINE 7 MG/24 HOURS TOPICAL PATCH TD SCH (10:05)
[2021-03-02] MEDS: BUDESONIDE/FORMETEROL FUMARATE 160/4.5 mcg INHALER IH SCH ×2 (10:05→23:24)
[2021-03-02] MEDS: PRENATAL VITAMINS W/ FOLIC ACID TABLET (FP) PO SCH (10:05)
[2021-03-02 13:10] LABS: CALCIUM 8.6 mg/dL (8.5-10.1)
[2021-03-02 13:11] LABS: HEMATOCRIT 39.5 % (35.4-49); HEMOGLOBIN 13.1 GM/dL (11.7-16.9); MCH 28.9 pg (25.7-33.7); MCHC 33.3 g/dl (32.0-35.9); MEAN CELL VOLUME 86.8 fl (80-96); MEAN PLT VOLUME 8.9 fl (7.5-11.1); PLATELET COUNT 171 10^3/uL (134-434); RBC 4.55 M/mm3 (4.00-5.60); RDW 14.5 % (11.9-15.9)
[2021-03-02 13:14] LABS: CREATININE 1.2 mg/dL (0.55-1.3)
[2021-03-02 13:15] LABS: BILIRUBIN,TOTAL 0.3 mg/dL (0.2-1)
[2021-03-02 13:16] LABS: TOT PROT 6.4 g/dl (6.4-8.2)
[2021-03-02] MEDS: hydrOXYzine PAMOATE 25 MG CAPSULE (FP) PO PRN (18:38)
[2021-03-02] MEDS: MELATONIN 5 MG TABLETS PO SCH (23:20)
[2021-03-02] MEDS: THIAMINE HCL 100 MG TABLET (FP) PO SCH (23:20)
[2021-03-02] MEDS: LIDOCAINE PATCH REMOVAL MC SCH (23:30)
[2021-03-03] MEDS ORDERED: diazePAM 5 MG TABLET PO ONE (06:00)
[2021-03-03] MEDS: LIDOCAINE 5% TOPICAL PATCH TP SCH (10:22)
[2021-03-03] MEDS: BUDESONIDE/FORMETEROL FUMARATE 160/4.5 mcg INHALER IH SCH (10:23)
[2021-03-03] MEDS: NICOTINE 7 MG/24 HOURS TOPICAL PATCH TD SCH (10:23)
[2021-03-03] MEDS: PRENATAL VITAMINS W/ FOLIC ACID TABLET (FP) PO SCH (10:23)
[2021-03-03] MEDS ORDERED: ALBUTEROL SO4 HFA INHALER IH PRN (11:57)
[2021-03-03 14:13] VITALS: BP 131/69; PULSE 63; TEMP 97.5
== END 2021-03-03 15:12 | disposition other institution (70) | DRG 774 ==
LOC: YASAS 15:08 → UNDOADMIN 02-27 12:08 → Y3N 02-27 12:08 → UNDODISIN 03-03 15:12
PROVIDERS: ADMIT Allergy & Immunology; ATTEND Allergy & Immunology
PROC: HZ2ZZZZ Detoxification Services for Substance Abuse Treatment (ICD-10-PCS; principal; 2021-02-27)
DX: F10.230 Alcohol dependence with withdrawal, uncomplicated (principal); F14.20 Cocaine dependence, uncomplicated; F17.210 Nicotine dependence, cigarettes, uncomplicated; F19.282 Other psychoactive substance dependence with psychoactive substance-induced sleep disorder; F19.24 Other psychoactive substance dependence with psychoactive substance-induced mood disorder; J44.9 Chronic obstructive pulmonary disease, unspecified; J45.20 Mild intermittent asthma, uncomplicated; M54.5 Low back pain; G89.29 Other chronic pain; R63.4 Abnormal weight loss; Z68.1 Body mass index [BMI] 19.9 or less, adult; Z56.0 Unemployment, unspecified; Z59.0 Homelessness
CPT/HCPCS: 36415; 80053; 85025; 85027; 86780; 87389; 94640; C9803; U0003; U0005

== ENCOUNTER 2021-03-03 15:19 | Inpatient (IN) | payer OTHER ==
[2021-03-03] MEDS ORDERED: LOPERAMIDE HCL 2 MG CAPSULE PO PRN (15:25)
[2021-03-03] MEDS ORDERED: MAGNESIUM HYDROX 2400MG/30ML ORAL SUSPENSION 30 ML CUP PO PRN (15:25)
[2021-03-03] MEDS ORDERED: MENTHOL/PHENOL 1 EACH UD MM PRN (15:25)
[2021-03-03] MEDS ORDERED: guaiFENesin 200 MG/10 ML 10 ML UNIT-DOSE CUPS PO PRN (15:25)
[2021-03-03] MEDS ORDERED: NICOTINE 10 MG CARTRIDGE (INHALER) IH PRN (15:25)
[2021-03-03] MEDS ORDERED: P-EPHED 60MG/TRIPROLIDI 2.5MG TABLET PO PRN (15:25)
[2021-03-03] MEDS ORDERED: MAGNESIUM CITRATE 300 ML BOTTLE PO PRN (15:25)
[2021-03-03] MEDS ORDERED: MAG HYDROX/AL HYDROX/SIMETH 30 ML UNIT-DOSE CUP PO PRN (15:25)
[2021-03-03] MEDS ORDERED: ALBUTEROL SO4 HFA INHALER IH PRN (15:28)
[2021-03-03] MEDS: MELATONIN 5 MG TABLETS PO SCH (21:15)
[2021-03-03] MEDS: THIAMINE HCL 100 MG TABLET (FP) PO SCH (21:15)
[2021-03-03] MEDS: BUDESONIDE/FORMETEROL FUMARATE 160/4.5 mcg INHALER IH SCH (21:16)
[2021-03-04] MEDS: IBUPROFEN 400 MG TABLET (FP) PO PRN ×2 (03:35→10:00)
[2021-03-04] MEDS: ACETAMINOPHEN 325 MG TABLET (FP) PO PRN (07:36)
[2021-03-04] MEDS: NICOTINE 7 MG/24 HOURS TOPICAL PATCH TD SCH (09:59)
[2021-03-04] MEDS: LIDOCAINE 5% TOPICAL PATCH TP SCH (09:59)
[2021-03-04] MEDS: PRENATAL VITAMINS W/ FOLIC ACID TABLET (FP) PO SCH (09:59)
[2021-03-04] MEDS: BUDESONIDE/FORMETEROL FUMARATE 160/4.5 mcg INHALER IH SCH ×2 (09:59→21:12)
[2021-03-04] MEDS: METHOCARBAMOL 500 MG TABLET PO SCH ×4 (10:00→21:12)
[2021-03-04] MEDS: LIDOCAINE PATCH REMOVAL MC SCH (21:12)
[2021-03-04] MEDS: THIAMINE HCL 100 MG TABLET (FP) PO SCH (21:12)
[2021-03-04] MEDS: MELATONIN 5 MG TABLETS PO SCH (21:12)
[2021-03-05] MEDS: IBUPROFEN 400 MG TABLET (FP) PO PRN (01:18)
[2021-03-05] MEDS: PRENATAL VITAMINS W/ FOLIC ACID TABLET (FP) PO SCH (09:56)
[2021-03-05] MEDS: LIDOCAINE 5% TOPICAL PATCH TP SCH (09:56)
[2021-03-05] MEDS: METHOCARBAMOL 500 MG TABLET PO SCH ×4 (09:56→21:23)
[2021-03-05] MEDS: BUDESONIDE/FORMETEROL FUMARATE 160/4.5 mcg INHALER IH SCH ×2 (09:57→21:23)
[2021-03-05] MEDS: NICOTINE 7 MG/24 HOURS TOPICAL PATCH TD SCH (09:57)
[2021-03-05] MEDS: MELATONIN 5 MG TABLETS PO SCH (21:22)
[2021-03-05] MEDS: THIAMINE HCL 100 MG TABLET (FP) PO SCH (21:23)
[2021-03-05] MEDS: LIDOCAINE PATCH REMOVAL MC SCH (21:25)
[2021-03-06] MEDS: IBUPROFEN 400 MG TABLET (FP) PO PRN (01:38)
[2021-03-06] MEDS: ACETAMINOPHEN 325 MG TABLET (FP) PO PRN (06:27)
[2021-03-06] MEDS: PRENATAL VITAMINS W/ FOLIC ACID TABLET (FP) PO SCH (09:53)
[2021-03-06] MEDS: LIDOCAINE 5% TOPICAL PATCH TP SCH (09:53)
[2021-03-06] MEDS: BUDESONIDE/FORMETEROL FUMARATE 160/4.5 mcg INHALER IH SCH ×2 (09:53→21:16)
[2021-03-06] MEDS: METHOCARBAMOL 500 MG TABLET PO SCH ×4 (09:53→21:16)
[2021-03-06] MEDS: NICOTINE 7 MG/24 HOURS TOPICAL PATCH TD SCH (09:53)
[2021-03-06] MEDS: THIAMINE HCL 100 MG TABLET (FP) PO SCH (21:16)
[2021-03-06] MEDS: MELATONIN 5 MG TABLETS PO SCH (21:16)
[2021-03-06] MEDS: LIDOCAINE PATCH REMOVAL MC SCH (21:16)
[2021-03-07] MEDS: hydrOXYzine PAMOATE 25 MG CAPSULE (FP) PO PRN ×2 (00:43→21:40)
[2021-03-07] MEDS: IBUPROFEN 400 MG TABLET (FP) PO PRN (02:30)
[2021-03-07] MEDS: ACETAMINOPHEN 325 MG TABLET (FP) PO PRN (06:31)
[2021-03-07] MEDS: NICOTINE 7 MG/24 HOURS TOPICAL PATCH TD SCH (09:44)
[2021-03-07] MEDS: PRENATAL VITAMINS W/ FOLIC ACID TABLET (FP) PO SCH (09:44)
[2021-03-07] MEDS: LIDOCAINE 5% TOPICAL PATCH TP SCH (09:44)
[2021-03-07] MEDS: METHOCARBAMOL 500 MG TABLET PO SCH ×4 (09:44→21:39)
[2021-03-07] MEDS: BUDESONIDE/FORMETEROL FUMARATE 160/4.5 mcg INHALER IH SCH ×2 (10:36→21:39)
[2021-03-07] MEDS: LIDOCAINE PATCH REMOVAL MC SCH (21:39)
[2021-03-07] MEDS: THIAMINE HCL 100 MG TABLET (FP) PO SCH (21:39)
[2021-03-07] MEDS: MELATONIN 5 MG TABLETS PO SCH (21:40)
[2021-03-08] MEDS: IBUPROFEN 400 MG TABLET (FP) PO PRN ×2 (00:52→13:53)
[2021-03-08] MEDS: ACETAMINOPHEN 325 MG TABLET (FP) PO PRN (07:04)
[2021-03-08] MEDS: PRENATAL VITAMINS W/ FOLIC ACID TABLET (FP) PO SCH (10:05)
[2021-03-08] MEDS: NICOTINE 7 MG/24 HOURS TOPICAL PATCH TD SCH (10:05)
[2021-03-08] MEDS: LIDOCAINE 5% TOPICAL PATCH TP SCH (10:05)
[2021-03-08] MEDS: METHOCARBAMOL 500 MG TABLET PO SCH ×4 (10:05→21:14)
[2021-03-08] MEDS: BUDESONIDE/FORMETEROL FUMARATE 160/4.5 mcg INHALER IH SCH ×2 (10:06→21:15)
[2021-03-08] MEDS: MELATONIN 5 MG TABLETS PO SCH (21:14)
[2021-03-08] MEDS: THIAMINE HCL 100 MG TABLET (FP) PO SCH (21:14)
[2021-03-08] MEDS: LIDOCAINE PATCH REMOVAL MC SCH (21:15)
[2021-03-09] MEDS: IBUPROFEN 400 MG TABLET (FP) PO PRN ×2 (01:23→10:23)
[2021-03-09] MEDS ORDERED: PT OWN MED DRAWER 7, Y5N ONE (09:58)
[2021-03-09] MEDS: METHOCARBAMOL 500 MG TABLET PO SCH ×4 (10:22→21:27)
[2021-03-09] MEDS: PRENATAL VITAMINS W/ FOLIC ACID TABLET (FP) PO SCH (10:22)
[2021-03-09] MEDS: LIDOCAINE 5% TOPICAL PATCH TP SCH (10:22)
[2021-03-09] MEDS: BUDESONIDE/FORMETEROL FUMARATE 160/4.5 mcg INHALER IH SCH ×2 (10:25→21:28)
[2021-03-09] MEDS: NICOTINE 7 MG/24 HOURS TOPICAL PATCH TD SCH (10:26)
[2021-03-09] MEDS: THIAMINE HCL 100 MG TABLET (FP) PO SCH (21:28)
[2021-03-09] MEDS: MELATONIN 5 MG TABLETS PO SCH (21:28)
[2021-03-09] MEDS: LIDOCAINE PATCH REMOVAL MC SCH (21:29)
[2021-03-10] MEDS: IBUPROFEN 600 MG TABLET (FP) PO PRN ×2 (03:13→10:03)
[2021-03-10] MEDS: LIDOCAINE 5% TOPICAL PATCH TP SCH (10:01)
[2021-03-10] MEDS: METHOCARBAMOL 500 MG TABLET PO SCH ×4 (10:02→21:16)
[2021-03-10] MEDS: PRENATAL VITAMINS W/ FOLIC ACID TABLET (FP) PO SCH (10:03)
[2021-03-10] MEDS: BUDESONIDE/FORMETEROL FUMARATE 160/4.5 mcg INHALER IH SCH ×2 (10:04→21:16)
[2021-03-10] MEDS: NICOTINE 7 MG/24 HOURS TOPICAL PATCH TD SCH (10:04)
[2021-03-10] MEDS: MELATONIN 5 MG TABLETS PO SCH (21:16)
[2021-03-10] MEDS: THIAMINE HCL 100 MG TABLET (FP) PO SCH (21:16)
[2021-03-10] MEDS: LIDOCAINE PATCH REMOVAL MC SCH (21:16)
[2021-03-11] MEDS: IBUPROFEN 600 MG TABLET (FP) PO PRN ×2 (01:51→10:22)
[2021-03-11] MEDS: NICOTINE 7 MG/24 HOURS TOPICAL PATCH TD SCH (10:22)
[2021-03-11] MEDS: LIDOCAINE 5% TOPICAL PATCH TP SCH (10:22)
[2021-03-11] MEDS: PRENATAL VITAMINS W/ FOLIC ACID TABLET (FP) PO SCH (10:22)
[2021-03-11] MEDS: METHOCARBAMOL 500 MG TABLET PO SCH ×4 (10:22→21:26)
[2021-03-11] MEDS: BUDESONIDE/FORMETEROL FUMARATE 160/4.5 mcg INHALER IH SCH ×2 (10:22→21:26)
[2021-03-11] MEDS: MELATONIN 5 MG TABLETS PO SCH (21:26)
[2021-03-11] MEDS: THIAMINE HCL 100 MG TABLET (FP) PO SCH (21:26)
[2021-03-11] MEDS: LIDOCAINE PATCH REMOVAL MC SCH (21:27)
[2021-03-12] MEDS: IBUPROFEN 600 MG TABLET (FP) PO PRN ×2 (02:29→21:39)
[2021-03-12] MEDS: PRENATAL VITAMINS W/ FOLIC ACID TABLET (FP) PO SCH (09:49)
[2021-03-12] MEDS: METHOCARBAMOL 500 MG TABLET PO SCH ×4 (09:49→21:37)
[2021-03-12] MEDS: NICOTINE 7 MG/24 HOURS TOPICAL PATCH TD SCH (09:50)
[2021-03-12] MEDS: BUDESONIDE/FORMETEROL FUMARATE 160/4.5 mcg INHALER IH SCH ×2 (09:50→21:40)
[2021-03-12] MEDS: LIDOCAINE 5% TOPICAL PATCH TP SCH (09:50)
[2021-03-12] MEDS: THIAMINE HCL 100 MG TABLET (FP) PO SCH (21:37)
[2021-03-12] MEDS: MELATONIN 5 MG TABLETS PO SCH (21:38)
[2021-03-12] MEDS: LIDOCAINE PATCH REMOVAL MC SCH (22:38)
[2021-03-13] MEDS: IBUPROFEN 600 MG TABLET (FP) PO PRN ×2 (07:59→13:50)
[2021-03-13] MEDS: METHOCARBAMOL 500 MG TABLET PO SCH ×4 (09:46→21:11)
[2021-03-13] MEDS: PRENATAL VITAMINS W/ FOLIC ACID TABLET (FP) PO SCH (09:46)
[2021-03-13] MEDS: NICOTINE 7 MG/24 HOURS TOPICAL PATCH TD SCH (09:47)
[2021-03-13] MEDS: LIDOCAINE 5% TOPICAL PATCH TP SCH (09:47)
[2021-03-13] MEDS: BUDESONIDE/FORMETEROL FUMARATE 160/4.5 mcg INHALER IH SCH ×2 (10:40→22:00)
[2021-03-13] MEDS: THIAMINE HCL 100 MG TABLET (FP) PO SCH (21:11)
[2021-03-13] MEDS: MELATONIN 5 MG TABLETS PO SCH (21:11)
[2021-03-13] MEDS: LIDOCAINE PATCH REMOVAL MC SCH (21:11)
[2021-03-14] MEDS: IBUPROFEN 600 MG TABLET (FP) PO PRN ×2 (03:46→10:10)
[2021-03-14] MEDS: NICOTINE 7 MG/24 HOURS TOPICAL PATCH TD SCH (10:10)
[2021-03-14] MEDS: PRENATAL VITAMINS W/ FOLIC ACID TABLET (FP) PO SCH (10:10)
[2021-03-14] MEDS: LIDOCAINE 5% TOPICAL PATCH TP SCH (10:10)
[2021-03-14] MEDS: BUDESONIDE/FORMETEROL FUMARATE 160/4.5 mcg INHALER IH SCH ×2 (10:10→21:29)
[2021-03-14] MEDS: METHOCARBAMOL 500 MG TABLET PO SCH ×4 (10:10→21:28)
[2021-03-14] MEDS: THIAMINE HCL 100 MG TABLET (FP) PO SCH (21:28)
[2021-03-14] MEDS: MELATONIN 5 MG TABLETS PO SCH (21:29)
[2021-03-14] MEDS: LIDOCAINE PATCH REMOVAL MC SCH (21:29)
[2021-03-15] MEDS: IBUPROFEN 600 MG TABLET (FP) PO PRN (07:45)
[2021-03-15] MEDS: PRENATAL VITAMINS W/ FOLIC ACID TABLET (FP) PO SCH (10:01)
[2021-03-15] MEDS: METHOCARBAMOL 500 MG TABLET PO SCH ×4 (10:01→21:10)
[2021-03-15] MEDS: NICOTINE 7 MG/24 HOURS TOPICAL PATCH TD SCH (10:01)
[2021-03-15] MEDS: BUDESONIDE/FORMETEROL FUMARATE 160/4.5 mcg INHALER IH SCH ×2 (10:01→21:10)
[2021-03-15] MEDS: LIDOCAINE 5% TOPICAL PATCH TP SCH (10:02)
[2021-03-15] MEDS: LIDOCAINE PATCH REMOVAL MC SCH (21:10)
[2021-03-15] MEDS: MELATONIN 5 MG TABLETS PO SCH (21:10)
[2021-03-15] MEDS: THIAMINE HCL 100 MG TABLET (FP) PO SCH (21:10)
[2021-03-16] MEDS: IBUPROFEN 600 MG TABLET (FP) PO PRN ×2 (07:05→14:23)
[2021-03-16] MEDS: NICOTINE 7 MG/24 HOURS TOPICAL PATCH TD SCH (10:21)
[2021-03-16] MEDS: METHOCARBAMOL 500 MG TABLET PO SCH ×4 (10:21→21:25)
[2021-03-16] MEDS: LIDOCAINE 5% TOPICAL PATCH TP SCH (10:21)
[2021-03-16] MEDS: PRENATAL VITAMINS W/ FOLIC ACID TABLET (FP) PO SCH (10:21)
[2021-03-16] MEDS: BUDESONIDE/FORMETEROL FUMARATE 160/4.5 mcg INHALER IH SCH ×2 (10:22→21:25)
[2021-03-16] MEDS: THIAMINE HCL 100 MG TABLET (FP) PO SCH (21:25)
[2021-03-16] MEDS: LIDOCAINE PATCH REMOVAL MC SCH (21:25)
[2021-03-16] MEDS: MELATONIN 5 MG TABLETS PO SCH (21:25)
[2021-03-17] MEDS: IBUPROFEN 600 MG TABLET (FP) PO PRN (06:35)
[2021-03-17 06:48] VITALS: BP 115/73; PULSE 75; TEMP 98.1
[2021-03-17] MEDS: METHOCARBAMOL 500 MG TABLET PO SCH (09:45)
[2021-03-17] MEDS: NICOTINE 7 MG/24 HOURS TOPICAL PATCH TD SCH (09:45)
[2021-03-17] MEDS: PRENATAL VITAMINS W/ FOLIC ACID TABLET (FP) PO SCH (09:45)
[2021-03-17] MEDS: LIDOCAINE 5% TOPICAL PATCH TP SCH (09:45)
[2021-03-17] MEDS: BUDESONIDE/FORMETEROL FUMARATE 160/4.5 mcg INHALER IH SCH (09:46)
== END 2021-03-17 10:21 | disposition home or self-care (01) | DRG 772 ==
LOC: YASAS 15:19 → Y3W 15:22
PROVIDERS: ADMIT Allergy & Immunology; ATTEND Allergy & Immunology
PROC: HZ42ZZZ Group Counseling for Substance Abuse Treatment, Cognitive-Behavioral (ICD-10-PCS; principal; 2021-03-03)
DX: F10.20 Alcohol dependence, uncomplicated (principal); F14.20 Cocaine dependence, uncomplicated; F17.210 Nicotine dependence, cigarettes, uncomplicated; J44.9 Chronic obstructive pulmonary disease, unspecified; Z59.0 Homelessness

== ENCOUNTER 2021-06-15 12:25 | Inpatient (IN) | payer OTHER ==
[2021-06-15] MEDS ORDERED: ACETAMINOPHEN 325 MG TABLET (FP) PO PRN ×2 (15:09)
[2021-06-15] MEDS ORDERED: IBUPROFEN 400 MG TABLET (FP) PO PRN (15:09)
[2021-06-15] MEDS ORDERED: MENTHOL/PHENOL 1 EACH UD MM PRN (15:09)
[2021-06-15] MEDS ORDERED: NICOTINE 10 MG CARTRIDGE (INHALER) IH PRN (15:09)
[2021-06-15] MEDS ORDERED: MAGNESIUM CITRATE 300 ML BOTTLE PO PRN (15:09)
[2021-06-15] MEDS ORDERED: BISMUTH SUBSALICYLATE 524 MG/30 ML PO PRN (15:09)
[2021-06-15] MEDS ORDERED: MAGNESIUM HYDROX 2400MG/30ML ORAL SUSPENSION 30 ML CUP PO PRN (15:09)
[2021-06-15] MEDS ORDERED: chlordiazePOXIDE HCL 25 MG CAPSULE PO PRN (15:09)
[2021-06-15] MEDS ORDERED: ONDANSETRON *ODT* 4 MG TABLET SL PRN (15:09)
[2021-06-15] MEDS ORDERED: MAG HYDROX/AL HYDROX/SIMETH 30 ML UNIT-DOSE CUP PO PRN (15:09)
[2021-06-15] MEDS ORDERED: ALBUTEROL SO4 HFA INHALER IH PRN (15:11)
[2021-06-15 15:19] VITALS: BMI 23.3
[2021-06-15] MEDS: chlordiazePOXIDE HCL 25 MG CAPSULE PO SCH ×2 (17:00→22:32)
[2021-06-15] MEDS: hydrOXYzine PAMOATE 25 MG CAPSULE (FP) PO SCH ×2 (17:47→22:33)
[2021-06-15] MEDS: BUDESONIDE/FORMETEROL FUMARATE 160/4.5 mcg INHALER IH SCH (22:33)
[2021-06-15] MEDS: THIAMINE HCL 100 MG TABLET (FP) PO SCH (22:33)
[2021-06-15] MEDS: MELATONIN 5 MG TABLETS PO SCH (22:35)
[2021-06-16] MEDS: hydrOXYzine PAMOATE 25 MG CAPSULE (FP) PO SCH ×5 (06:37→21:45)
[2021-06-16] MEDS: chlordiazePOXIDE HCL 25 MG CAPSULE PO SCH ×4 (06:38→22:18)
[2021-06-16 10:52] LABS: HEMATOCRIT 39.1 % (35.4-49); HEMOGLOBIN 12.9 GM/dL (11.7-16.9); MCH 28.4 pg (25.7-33.7); MEAN PLT VOLUME 8.1 fl (7.5-11.1); PLATELET COUNT 219 10^3/uL (134-434); RBC 4.55 M/mm3 (4.00-5.60); RDW 14.9 % (11.9-15.9); WHITE BLOOD COUNT 3.5 K/mm3 (4.0-10.0)
[2021-06-16] MEDS: PRENATAL VITAMINS W/ FOLIC ACID TABLET (FP) PO SCH (10:55)
[2021-06-16] MEDS: BUDESONIDE/FORMETEROL FUMARATE 160/4.5 mcg INHALER IH SCH ×2 (10:55→21:45)
[2021-06-16] MEDS: METHOCARBAMOL 500 MG TABLET PO PRN (10:55)
[2021-06-16] MEDS: LIDOCAINE 5% TOPICAL PATCH TP SCH (11:04)
[2021-06-16 11:09] LABS: ALBUMIN 2.9 g/dl (3.4-5.0); BLOOD UREA NITROGEN 16.3 mg/dL (7-18); CALCIUM 8.6 mg/dL (8.5-10.1)
[2021-06-16 11:13] LABS: CREATININE 1.2 mg/dL (0.55-1.3)
[2021-06-16 11:15] LABS: BILIRUBIN,TOTAL 0.4 mg/dL (0.2-1); TOT PROT 6.3 g/dl (6.4-8.2)
[2021-06-16] MEDS: LIDOCAINE PATCH REMOVAL MC SCH (21:45)
[2021-06-16] MEDS: MELATONIN 5 MG TABLETS PO SCH (21:45)
[2021-06-16] MEDS: THIAMINE HCL 100 MG TABLET (FP) PO SCH (22:18)
[2021-06-17] MEDS: chlordiazePOXIDE HCL 25 MG CAPSULE PO SCH ×3 (06:15→18:34)
[2021-06-17] MEDS: hydrOXYzine PAMOATE 25 MG CAPSULE (FP) PO SCH ×3 (06:15→15:10)
[2021-06-17] MEDS: LIDOCAINE 5% TOPICAL PATCH TP SCH (10:58)
[2021-06-17] MEDS: BUDESONIDE/FORMETEROL FUMARATE 160/4.5 mcg INHALER IH SCH ×2 (10:59→23:03)
[2021-06-17] MEDS: PRENATAL VITAMINS W/ FOLIC ACID TABLET (FP) PO SCH (10:59)
[2021-06-17] MEDS: METHOCARBAMOL 500 MG TABLET PO PRN ×2 (10:59→20:21)
[2021-06-17] MEDS ORDERED: hydrOXYzine PAMOATE 25 MG CAPSULE (FP) PO PRN (16:10)
[2021-06-17] MEDS: MELATONIN 5 MG TABLETS PO SCH (23:03)
[2021-06-17] MEDS: THIAMINE HCL 100 MG TABLET (FP) PO SCH (23:04)
[2021-06-18] MEDS ORDERED: chlordiazePOXIDE HCL 10 MG CAPSULE PO PRN
[2021-06-18] MEDS: LIDOCAINE PATCH REMOVAL MC SCH (00:11)
[2021-06-18] MEDS: chlordiazePOXIDE HCL 25 MG CAPSULE PO SCH (00:36)
[2021-06-18] MEDS ORDERED: chlordiazePOXIDE HCL 10 MG CAPSULE PO SCH (05:00)
[2021-06-18 07:05] VITALS: BP 107/52; PULSE 53; TEMP 97.7
[2021-06-19] MEDS ORDERED: chlordiazePOXIDE HCL 10 MG CAPSULE PO SCH (05:00)
[2021-06-20] MEDS ORDERED: chlordiazePOXIDE HCL 10 MG CAPSULE PO ONE (05:00)
== END 2021-06-18 11:16 | disposition left against medical advice (07) | DRG 770 ==
LOC: YASAS 12:25 → Y6N 15:32
PROVIDERS: ADMIT Allergy & Immunology; ATTEND Allergy & Immunology
PROC: HZ2ZZZZ Detoxification Services for Substance Abuse Treatment (ICD-10-PCS; principal; 2021-06-15)
DX: F10.230 Alcohol dependence with withdrawal, uncomplicated (principal); F14.20 Cocaine dependence, uncomplicated; F17.210 Nicotine dependence, cigarettes, uncomplicated; U07.1 COVID-19; J45.20 Mild intermittent asthma, uncomplicated; J44.9 Chronic obstructive pulmonary disease, unspecified; Z59.01 Sheltered homelessness; Z56.0 Unemployment, unspecified
CPT/HCPCS: 36415; 80053; 85027; 86780; C9803; U0003; U0005

== ENCOUNTER 2021-09-01 10:25 | Inpatient (IN) | payer OTHER ==
[2021-09-01] MEDS ORDERED: ACETAMINOPHEN 325 MG TABLET (FP) PO PRN (11:43)
[2021-09-01] MEDS ORDERED: LOPERAMIDE HCL 2 MG CAPSULE PO PRN (11:43)
[2021-09-01] MEDS ORDERED: chlordiazePOXIDE HCL 25 MG CAPSULE PO PRN (11:43)
[2021-09-01] MEDS ORDERED: MAGNESIUM HYDROX 2400MG/30ML ORAL SUSPENSION 30 ML CUP PO PRN (11:43)
[2021-09-01] MEDS ORDERED: NICOTINE 10 MG CARTRIDGE (INHALER) IH PRN (11:43)
[2021-09-01] MEDS ORDERED: ONDANSETRON *ODT* 4 MG TABLET SL PRN (11:43)
[2021-09-01] MEDS ORDERED: MAGNESIUM CITRATE 300 ML BOTTLE PO PRN (11:43)
[2021-09-01] MEDS ORDERED: MENTHOL/PHENOL 1 EACH UD MM PRN (11:43)
[2021-09-01] MEDS ORDERED: BISMUTH SUBSALICYLATE 524 MG/30 ML PO PRN (11:43)
[2021-09-01 13:32] VITALS: BMI 22.5
[2021-09-01] MEDS ORDERED: IBUPROFEN 400 MG TABLET (FP) PO ONE (14:44)
[2021-09-01] MEDS: IBUPROFEN 400 MG TABLET (FP) PO PRN (14:46)
[2021-09-01] MEDS: hydrOXYzine PAMOATE 25 MG CAPSULE (FP) PO SCH ×3 (15:09→22:51)
[2021-09-01 17:14] LABS: CALCIUM 8.8 mg/dL (8.5-10.1)
[2021-09-01 17:15] LABS: ALBUMIN 3.3 g/dl (3.4-5.0); BLOOD UREA NITROGEN 15.3 mg/dL (7-18); HEMATOCRIT 34.3 % (35.4-49); HEMOGLOBIN 10.9 GM/dL (11.7-16.9); MCH 27.2 pg (25.7-33.7); MCHC 31.8 g/dl (32.0-35.9); MEAN CELL VOLUME 85.6 fl (80-96); MEAN PLT VOLUME 8.2 fl (7.5-11.1); PLATELET COUNT 283 10^3/uL (134-434); RBC 4.01 M/mm3 (4.00-5.60); RDW 17.2 % (11.9-15.9); WHITE BLOOD COUNT 3.4 K/mm3 (4.0-10.0)
[2021-09-01 17:19] LABS: BILIRUBIN,TOTAL 0.3 mg/dL (0.2-1); TOT PROT 6.8 g/dl (6.4-8.2)
[2021-09-01] MEDS: chlordiazePOXIDE HCL 25 MG CAPSULE PO SCH ×2 (18:47→22:45)
[2021-09-01] MEDS: THIAMINE HCL 100 MG TABLET (FP) PO SCH (22:44)
[2021-09-01] MEDS: MELATONIN 5 MG TABLETS PO SCH ×2 (22:44→22:52)
[2021-09-01] MEDS: ACETAMINOPHEN 325 MG TABLET (FP) PO PRN (22:47)
[2021-09-02] MEDS: hydrOXYzine PAMOATE 25 MG CAPSULE (FP) PO SCH ×5 (05:31→23:22)
[2021-09-02] MEDS: chlordiazePOXIDE HCL 25 MG CAPSULE PO SCH ×4 (05:31→23:03)
[2021-09-02] MEDS: ACETAMINOPHEN 325 MG TABLET (FP) PO PRN (05:32)
[2021-09-02] MEDS ORDERED: ALBUTEROL SO4 HFA INHALER IH PRN (10:25)
[2021-09-02] MEDS: PRENATAL VITAMINS W/ FOLIC ACID TABLET (FP) PO SCH (10:28)
[2021-09-02] MEDS: METHOCARBAMOL 500 MG TABLET PO PRN (10:28)
[2021-09-02] MEDS: POTASSIUM CHLORIDE ORAL LIQUID 20 MEQ/15 ML PO SCH ×2 (11:46→23:03)
[2021-09-02] MEDS: THIAMINE HCL 100 MG TABLET (FP) PO SCH (23:03)
[2021-09-02] MEDS: MELATONIN 5 MG TABLETS PO SCH (23:22)
[2021-09-03] MEDS: BUDESONIDE/FORMETEROL FUMARATE 160/4.5 mcg INHALER IH SCH ×3 (00:16→22:27)
[2021-09-03] MEDS: hydrOXYzine PAMOATE 25 MG CAPSULE (FP) PO SCH ×5 (06:42→22:27)
[2021-09-03] MEDS: chlordiazePOXIDE HCL 25 MG CAPSULE PO SCH ×4 (06:42→22:27)
[2021-09-03] MEDS: IBUPROFEN 400 MG TABLET (FP) PO PRN (06:43)
[2021-09-03 08:08] LABS: SARS-CoV-2 NAA Not Detected (Not Detected)
[2021-09-03] MEDS: POTASSIUM CHLORIDE ORAL LIQUID 20 MEQ/15 ML PO SCH ×2 (10:38→22:29)
[2021-09-03] MEDS: PRENATAL VITAMINS W/ FOLIC ACID TABLET (FP) PO SCH (10:38)
[2021-09-03] MEDS: METHOCARBAMOL 500 MG TABLET PO PRN (10:39)
[2021-09-03] MEDS: BACITRACIN 0.9 GM PACKET TP SCH ×2 (12:36→22:27)
[2021-09-03] MEDS: ACETAMINOPHEN 325 MG TABLET (FP) PO PRN (21:40)
[2021-09-03] MEDS: MAG HYDROX/AL HYDROX/SIMETH 30 ML UNIT-DOSE CUP PO PRN (21:40)
[2021-09-03] MEDS: MELATONIN 5 MG TABLETS PO SCH (22:27)
[2021-09-03] MEDS: THIAMINE HCL 100 MG TABLET (FP) PO SCH (22:27)
[2021-09-04] MEDS ORDERED: chlordiazePOXIDE HCL 10 MG CAPSULE PO PRN
[2021-09-04] MEDS: hydrOXYzine PAMOATE 25 MG CAPSULE (FP) PO SCH ×5 (07:07→22:33)
[2021-09-04] MEDS: chlordiazePOXIDE HCL 10 MG CAPSULE PO SCH ×4 (07:07→22:30)
[2021-09-04] MEDS: BUDESONIDE/FORMETEROL FUMARATE 160/4.5 mcg INHALER IH SCH ×2 (10:36→22:29)
[2021-09-04] MEDS: PRENATAL VITAMINS W/ FOLIC ACID TABLET (FP) PO SCH (10:36)
[2021-09-04] MEDS: METHOCARBAMOL 500 MG TABLET PO PRN ×2 (10:37→22:33)
[2021-09-04] MEDS: BACITRACIN 0.9 GM PACKET TP SCH ×2 (10:37→22:29)
[2021-09-04] MEDS: THIAMINE HCL 100 MG TABLET (FP) PO SCH (22:31)
[2021-09-04] MEDS: MELATONIN 5 MG TABLETS PO SCH (22:35)
[2021-09-04] MEDS: ACETAMINOPHEN 325 MG TABLET (FP) PO PRN (22:48)
[2021-09-05] MEDS: MAG HYDROX/AL HYDROX/SIMETH 30 ML UNIT-DOSE CUP PO PRN (00:32)
[2021-09-05] MEDS: hydrOXYzine PAMOATE 25 MG CAPSULE (FP) PO SCH ×5 (06:24→22:05)
[2021-09-05] MEDS: chlordiazePOXIDE HCL 10 MG CAPSULE PO SCH ×2 (06:24→17:36)
[2021-09-05] MEDS: PRENATAL VITAMINS W/ FOLIC ACID TABLET (FP) PO SCH (10:40)
[2021-09-05] MEDS: BACITRACIN 0.9 GM PACKET TP SCH ×2 (10:40→22:05)
[2021-09-05] MEDS: METHOCARBAMOL 500 MG TABLET PO PRN (10:40)
[2021-09-05] MEDS: BUDESONIDE/FORMETEROL FUMARATE 160/4.5 mcg INHALER IH SCH ×2 (10:40→22:04)
[2021-09-05] MEDS: THIAMINE HCL 100 MG TABLET (FP) PO SCH (22:04)
[2021-09-05] MEDS: MELATONIN 5 MG TABLETS PO SCH (22:05)
[2021-09-06] MEDS ORDERED: chlordiazePOXIDE HCL 10 MG CAPSULE PO ONE (05:00)
[2021-09-06] MEDS: hydrOXYzine PAMOATE 25 MG CAPSULE (FP) PO SCH (05:22)
[2021-09-06 09:32] VITALS: BP 135/71; PULSE 87; TEMP 97.2
[2021-09-07 06:08] LABS: SARS-CoV-2 NAA Not Detected (Not Detected)
== END 2021-09-06 09:22 | disposition home or self-care (01) | DRG 774 ==
LOC: YASAS 10:25 → Y6N 14:20
PROVIDERS: ADMIT Allergy & Immunology; ATTEND Allergy & Immunology
PROC: HZ2ZZZZ Detoxification Services for Substance Abuse Treatment (ICD-10-PCS; principal; 2021-09-01)
DX: F10.230 Alcohol dependence with withdrawal, uncomplicated (principal); F14.20 Cocaine dependence, uncomplicated; F17.210 Nicotine dependence, cigarettes, uncomplicated; E87.6 Hypokalemia; D70.9 Neutropenia, unspecified; J43.9 Emphysema, unspecified; J45.20 Mild intermittent asthma, uncomplicated; R63.4 Abnormal weight loss; Z68.22 Body mass index [BMI] 22.0-22.9, adult
CPT/HCPCS: 36415; 80053; 82947; 84132; 85027; 86780; C9803-CS; U0003; U0005

== ENCOUNTER 2022-12-22 12:52 | Inpatient (IN) | payer OTHER ==
[2022-12-22 13:36] VITALS: BMI 23.5
[2022-12-22] MEDS ORDERED: ONDANSETRON *ODT* 4 MG TABLET SL PRN (15:06)
[2022-12-22] MEDS ORDERED: NICOTINE 10 MG CARTRIDGE (INHALER) IH PRN (15:06)
[2022-12-22] MEDS ORDERED: ACETAMINOPHEN 325 MG TABLET (FP) PO PRN (15:06)
[2022-12-22] MEDS ORDERED: BENZONATATE 200 MG CAPSULE PO PRN (15:06)
[2022-12-22] MEDS ORDERED: IBUPROFEN 600 MG TABLET (FP) PO PRN (15:06)
[2022-12-22] MEDS ORDERED: guaiFENesin 600 MG TABLET.ER (FP) PO PRN (15:06)
[2022-12-22] MEDS ORDERED: hydrOXYzine PAMOATE 25 MG CAPSULE (FP) PO PRN (15:06)
[2022-12-22] MEDS ORDERED: IBUPROFEN 400 MG TABLET (FP) PO PRN (15:06)
[2022-12-22] MEDS ORDERED: MAGNESIUM HYDROX 2400MG/30ML ORAL SUSPENSION 30 ML CUP PO PRN (15:06)
[2022-12-22] MEDS ORDERED: NALOXONE HCL 0.4 MG/ML VIAL IM PRN (15:06)
[2022-12-22] MEDS ORDERED: DICYCLOMINE HCL 10 MG CAPSULE PO PRN (15:06)
[2022-12-22] MEDS ORDERED: BENZOCAINE/MENTHOL (CHLORASEPTIC ) LOZENGE MM PRN (15:06)
[2022-12-22] MEDS ORDERED: POLYETHYLENE GLYCOL (HEALTHYLAX) 3350 17 GM PACKET PO PRN (15:06)
[2022-12-22] MEDS ORDERED: BISMUTH SUBSALICYLATE 524 MG/30 ML PO PRN (15:06)
[2022-12-22] MEDS ORDERED: NALOXONE HCL (KLOXXADO) 8 MG SPRAY NS PRN (15:06)
[2022-12-22] MEDS ORDERED: LOPERAMIDE HCL 2 MG CAPSULE PO PRN (15:06)
[2022-12-22] MEDS ORDERED: METHOCARBAMOL 500 MG TABLET PO PRN (15:06)
[2022-12-22] MEDS ORDERED: MAG HYDROX/AL HYDROX/SIMETH 30 ML UNIT-DOSE CUP PO PRN (15:06)
[2022-12-22] MEDS ORDERED: IBUPROFEN 400 MG TABLET (FP) PO ONE (16:51)
[2022-12-22] MEDS: chlordiazePOXIDE HCL 25 MG CAPSULE PO SCH ×2 (18:01→22:39)
[2022-12-22] MEDS ORDERED: ALBUTEROL SO4 HFA INHALER IH PRN (18:02)
[2022-12-22] MEDS: PRENATAL VITAMINS W/ FOLIC ACID TABLET (FP) PO SCH (18:12)
[2022-12-22] MEDS: MELATONIN 5 MG TABLETS PO SCH (22:38)
[2022-12-22] MEDS: BUDESONIDE/FORMETEROL FUMARATE 160/4.5 mcg INHALER IH SCH (22:38)
[2022-12-22] MEDS: THIAMINE HCL 100 MG TABLET (FP) PO SCH (22:39)
[2022-12-23] MEDS: chlordiazePOXIDE HCL 25 MG CAPSULE PO SCH ×4 (05:31→22:33)
[2022-12-23 09:51] LABS: HEMOGLOBIN 11.8 GM/dL (11.7-16.9); MCH 27.8 pg (25.7-33.7); MCHC 32.7 g/dl (32.0-35.9); MEAN CELL VOLUME 85.1 fl (80-96); MEAN PLT VOLUME 8.3 fl (7.5-11.1); PLATELET COUNT 186 10^3/uL (134-434); RBC 4.23 M/mm3 (4.00-5.60); RDW 15.2 % (11.9-15.9); WHITE BLOOD COUNT 3.5 K/mm3 (4.0-10.0)
[2022-12-23 10:02] LABS: CALCIUM 8.5 mg/dL (8.5-10.1)
[2022-12-23 10:03] LABS: ALBUMIN 3.1 g/dl (3.4-5.0); BLOOD UREA NITROGEN 13.4 mg/dL (7-18)
[2022-12-23 10:06] LABS: CREATININE 0.9 mg/dL (0.55-1.3)
[2022-12-23 10:08] LABS: BILIRUBIN,TOTAL 0.3 mg/dL (0.2-1); TOT PROT 5.9 g/dl (6.4-8.2)
[2022-12-23] MEDS: BUDESONIDE/FORMETEROL FUMARATE 160/4.5 mcg INHALER IH SCH ×2 (10:12→22:34)
[2022-12-23] MEDS: PRENATAL VITAMINS W/ FOLIC ACID TABLET (FP) PO SCH (10:12)
[2022-12-23] MEDS: THIAMINE HCL 100 MG TABLET (FP) PO SCH (22:32)
[2022-12-23] MEDS: MELATONIN 5 MG TABLETS PO SCH (22:32)
[2022-12-24] MEDS ORDERED: chlordiazePOXIDE HCL 25 MG CAPSULE PO SCH (05:00)
[2022-12-24 09:15] VITALS: BP 136/84; PULSE 55; RESP 18; TEMP 97.5
[2022-12-25] MEDS ORDERED: chlordiazePOXIDE HCL 10 MG CAPSULE PO SCH (05:00)
[2022-12-26] MEDS ORDERED: chlordiazePOXIDE HCL 10 MG CAPSULE PO SCH (05:00)
[2022-12-27] MEDS ORDERED: chlordiazePOXIDE HCL 10 MG CAPSULE PO ONE (05:00)
== END 2022-12-24 09:57 | disposition left against medical advice (07) | DRG 770 ==
LOC: YASAS 12:52 → Y3N 16:40
PROVIDERS: ADMIT Allergy & Immunology; ATTEND Surgery
PROC: HZ2ZZZZ Detoxification Services for Substance Abuse Treatment (ICD-10-PCS; principal; 2022-12-22)
PROC: HZ2ZZZZ Detoxification Services for Substance Abuse Treatment (ICD-10-PCS; 2022-12-22)
DX: F10.230 Alcohol dependence with withdrawal, uncomplicated (principal); F14.20 Cocaine dependence, uncomplicated; F17.210 Nicotine dependence, cigarettes, uncomplicated; D72.819 Decreased white blood cell count, unspecified; J43.9 Emphysema, unspecified; J45.20 Mild intermittent asthma, uncomplicated
CPT/HCPCS: 36415; 80053; 85027; 86780; 87635

== ENCOUNTER 2023-01-10 09:30 | Inpatient (IN) | payer OTHER ==
[2023-01-10 10:03] VITALS: BMI 23.0
[2023-01-10] MEDS ORDERED: MAGNESIUM HYDROX 2400MG/30ML ORAL SUSPENSION 30 ML CUP PO PRN (10:21)
[2023-01-10] MEDS ORDERED: BISMUTH SUBSALICYLATE 262 MG/15 ML BTL PO PRN (10:21)
[2023-01-10] MEDS ORDERED: BENZONATATE 200 MG CAPSULE PO PRN (10:21)
[2023-01-10] MEDS ORDERED: chlordiazePOXIDE HCL 25 MG CAPSULE PO PRN (10:21)
[2023-01-10] MEDS ORDERED: guaiFENesin 600 MG TABLET.ER (FP) PO PRN (10:21)
[2023-01-10] MEDS ORDERED: NALOXONE HCL 0.4 MG/ML VIAL IM PRN (10:21)
[2023-01-10] MEDS ORDERED: POLYETHYLENE GLYCOL (HEALTHYLAX) 3350 17 GM PACKET PO PRN (10:21)
[2023-01-10] MEDS ORDERED: ONDANSETRON *ODT* 4 MG TABLET SL PRN (10:21)
[2023-01-10] MEDS ORDERED: MAG HYDROX/AL HYDROX/SIMETH 30 ML UNIT-DOSE CUP PO PRN (10:21)
[2023-01-10] MEDS ORDERED: NALOXONE HCL (KLOXXADO) 8 MG SPRAY NS PRN (10:21)
[2023-01-10] MEDS ORDERED: DICYCLOMINE HCL 10 MG CAPSULE PO PRN (10:21)
[2023-01-10] MEDS ORDERED: IBUPROFEN 400 MG TABLET (FP) PO PRN (10:21)
[2023-01-10] MEDS ORDERED: hydrOXYzine PAMOATE 25 MG CAPSULE (FP) PO PRN (10:21)
[2023-01-10] MEDS ORDERED: ACETAMINOPHEN 325 MG TABLET (FP) PO PRN (10:21)
[2023-01-10] MEDS ORDERED: LOPERAMIDE HCL 2 MG CAPSULE PO PRN (10:21)
[2023-01-10] MEDS ORDERED: BENZOCAINE/MENTHOL (CHLORASEPTIC ) LOZENGE MM PRN (10:21)
[2023-01-10] MEDS ORDERED: NICOTINE 7 MG/24 HOURS TOPICAL PATCH TD ONE (10:45)
[2023-01-10] MEDS ORDERED: PRENATAL VITAMINS W/ FOLIC ACID TABLET (FP) PO ONE (10:46)
[2023-01-10] MEDS: NICOTINE 7 MG/24 HOURS TOPICAL PATCH TD SCH (11:01)
[2023-01-10] MEDS: PRENATAL VITAMINS W/ FOLIC ACID TABLET (FP) PO SCH (11:01)
[2023-01-10] MEDS ORDERED: ALBUTEROL SO4 2.5/IPRATROPIUM 0.5 INH SOL 3 ML VIAL.NEB. NEB ONE (15:59)
[2023-01-10] MEDS ORDERED: predniSONE 20 MG TABLET (UD) PO ONE (16:00)
[2023-01-10 16:22] LABS: HEMATOCRIT 38.9 % (35.4-49); HEMOGLOBIN 12.6 GM/dL (11.7-16.9); MCH 28.2 pg (25.7-33.7); MCHC 32.4 g/dl (32.0-35.9); MEAN CELL VOLUME 86.9 fl (80-96); MEAN PLT VOLUME 8.6 fl (7.5-11.1); PLATELET COUNT 257 10^3/uL (134-434); RBC 4.48 M/mm3 (4.00-5.60); WHITE BLOOD COUNT 3.9 K/mm3 (4.0-10.0)
[2023-01-10 16:31] LABS: BLOOD UREA NITROGEN 18.2 mg/dL (7-18); CALCIUM 8.8 mg/dL (8.5-10.1)
[2023-01-10 16:32] LABS: ALBUMIN 3.4 g/dl (3.4-5.0)
[2023-01-10 16:35] LABS: CREATININE 1.2 mg/dL (0.55-1.3)
[2023-01-10 16:36] LABS: BILIRUBIN,TOTAL 0.4 mg/dL (0.2-1); TOT PROT 6.8 g/dl (6.4-8.2)
[2023-01-10] MEDS: chlordiazePOXIDE HCL 25 MG CAPSULE PO SCH ×2 (17:09→22:11)
[2023-01-10 17:16] LABS: HIV INTERPRETATION NEGATIVE (NEGATIVE)
[2023-01-10] MEDS: ALBUTEROL SO4 2.5/IPRATROPIUM 0.5 INH SOL 3 ML VIAL.NEB. NEB SCH (20:14)
[2023-01-10] MEDS: ALBUTEROL SO4 HFA INHALER IH PRN (22:09)
[2023-01-10] MEDS: BUDESONIDE/FORMETEROL FUMARATE 160/4.5 mcg INHALER IH SCH (22:10)
[2023-01-10] MEDS: MELATONIN 5 MG TABLETS PO SCH (22:11)
[2023-01-10] MEDS: THIAMINE HCL 100 MG TABLET (FP) PO SCH (22:11)
[2023-01-10] MEDS: METHOCARBAMOL 500 MG TABLET PO PRN (22:11)
[2023-01-11] MEDS: chlordiazePOXIDE HCL 25 MG CAPSULE PO SCH ×4 (05:18→23:04)
[2023-01-11] MEDS: ALBUTEROL SO4 2.5/IPRATROPIUM 0.5 INH SOL 3 ML VIAL.NEB. NEB SCH ×2 (10:24→23:06)
[2023-01-11] MEDS: NICOTINE 7 MG/24 HOURS TOPICAL PATCH TD SCH (10:24)
[2023-01-11] MEDS: predniSONE 20 MG TABLET (UD) PO SCH (10:24)
[2023-01-11] MEDS: PRENATAL VITAMINS W/ FOLIC ACID TABLET (FP) PO SCH (10:25)
[2023-01-11] MEDS: METHOCARBAMOL 500 MG TABLET PO PRN (10:26)
[2023-01-11] MEDS: BUDESONIDE/FORMETEROL FUMARATE 160/4.5 mcg INHALER IH SCH ×2 (10:27→23:01)
[2023-01-11] MEDS: IBUPROFEN 600 MG TABLET (FP) PO PRN (13:17)
[2023-01-11] MEDS ORDERED: ALBUTEROL SO4 2.5/IPRATROPIUM 0.5 INH SOL 3 ML VIAL.NEB. NEB ONE (14:21)
[2023-01-11] MEDS: LIDOCAINE 5% TOPICAL PATCH TP SCH (15:23)
[2023-01-11] MEDS: ALBUTEROL SO4 HFA INHALER IH PRN (23:00)
[2023-01-11] MEDS: THIAMINE HCL 100 MG TABLET (FP) PO SCH (23:00)
[2023-01-11] MEDS: MELATONIN 5 MG TABLETS PO SCH (23:05)
[2023-01-11] MEDS: LIDOCAINE PATCH REMOVAL MC SCH (23:05)
[2023-01-12] MEDS: chlordiazePOXIDE HCL 25 MG CAPSULE PO SCH ×4 (06:05→22:36)
[2023-01-12] MEDS: LIDOCAINE 5% TOPICAL PATCH TP SCH (10:35)
[2023-01-12] MEDS: PRENATAL VITAMINS W/ FOLIC ACID TABLET (FP) PO SCH (10:35)
[2023-01-12] MEDS: predniSONE 20 MG TABLET (UD) PO SCH (10:35)
[2023-01-12] MEDS: NICOTINE 7 MG/24 HOURS TOPICAL PATCH TD SCH (10:36)
[2023-01-12] MEDS: BUDESONIDE/FORMETEROL FUMARATE 160/4.5 mcg INHALER IH SCH ×2 (10:36→22:35)
[2023-01-12] MEDS: ALBUTEROL SO4 2.5/IPRATROPIUM 0.5 INH SOL 3 ML VIAL.NEB. NEB SCH (10:40)
[2023-01-12] MEDS: IBUPROFEN 600 MG TABLET (FP) PO PRN (17:37)
[2023-01-12] MEDS: METHOCARBAMOL 500 MG TABLET PO PRN (17:37)
[2023-01-12] MEDS ORDERED: ACETAMINOPHEN 325 MG TABLET (FP) PO PRN (18:21)
[2023-01-12] MEDS: THIAMINE HCL 100 MG TABLET (FP) PO SCH (22:35)
[2023-01-12] MEDS: MELATONIN 5 MG TABLETS PO SCH (22:36)
[2023-01-12] MEDS: LIDOCAINE PATCH REMOVAL MC SCH (22:36)
[2023-01-13] MEDS ORDERED: chlordiazePOXIDE HCL 10 MG CAPSULE PO PRN
[2023-01-13] MEDS: chlordiazePOXIDE HCL 10 MG CAPSULE PO SCH ×4 (05:43→22:02)
[2023-01-13] MEDS: ALBUTEROL SO4 HFA INHALER IH PRN ×3 (07:30→23:34)
[2023-01-13] MEDS: PRENATAL VITAMINS W/ FOLIC ACID TABLET (FP) PO SCH (10:27)
[2023-01-13] MEDS: predniSONE 20 MG TABLET (UD) PO SCH (10:28)
[2023-01-13] MEDS: NICOTINE 7 MG/24 HOURS TOPICAL PATCH TD SCH (10:28)
[2023-01-13] MEDS: BUDESONIDE/FORMETEROL FUMARATE 160/4.5 mcg INHALER IH SCH ×2 (10:28→22:02)
[2023-01-13] MEDS: LIDOCAINE 5% TOPICAL PATCH TP SCH (10:28)
[2023-01-13] MEDS: METHOCARBAMOL 500 MG TABLET PO PRN (10:30)
[2023-01-13] MEDS: THIAMINE HCL 100 MG TABLET (FP) PO SCH (22:01)
[2023-01-13] MEDS: MELATONIN 5 MG TABLETS PO SCH (22:01)
[2023-01-13] MEDS: LIDOCAINE PATCH REMOVAL MC SCH (22:03)
[2023-01-14] MEDS: chlordiazePOXIDE HCL 10 MG CAPSULE PO SCH ×2 (05:27→17:28)
[2023-01-14] MEDS: ALBUTEROL SO4 HFA INHALER IH PRN (05:28)
[2023-01-14] MEDS ORDERED: METHOCARBAMOL 500 MG TABLET PO PRN (08:19)
[2023-01-14] MEDS ORDERED: ALBUTEROL SO4 2.5/IPRATROPIUM 0.5 INH SOL 3 ML VIAL.NEB. NEB ONE (08:45)
[2023-01-14] MEDS: LIDOCAINE 5% TOPICAL PATCH TP SCH (10:10)
[2023-01-14] MEDS: NICOTINE 7 MG/24 HOURS TOPICAL PATCH TD SCH (10:11)
[2023-01-14] MEDS: BUDESONIDE/FORMETEROL FUMARATE 160/4.5 mcg INHALER IH SCH ×2 (10:11→21:32)
[2023-01-14] MEDS: PRENATAL VITAMINS W/ FOLIC ACID TABLET (FP) PO SCH (10:11)
[2023-01-14] MEDS: AMOX TR/POT CLAV 875MG/125MG TABLETS (FP) PO SCH (18:16)
[2023-01-14] MEDS: LIDOCAINE PATCH REMOVAL MC SCH (21:31)
[2023-01-14] MEDS: MELATONIN 5 MG TABLETS PO SCH (21:31)
[2023-01-14] MEDS: THIAMINE HCL 100 MG TABLET (FP) PO SCH (21:32)
[2023-01-15] MEDS ORDERED: chlordiazePOXIDE HCL 10 MG CAPSULE PO ONE (05:00)
[2023-01-15] MEDS: AMOX TR/POT CLAV 875MG/125MG TABLETS (FP) PO SCH (08:32)
[2023-01-15] MEDS: PRENATAL VITAMINS W/ FOLIC ACID TABLET (FP) PO SCH (09:01)
[2023-01-15] MEDS: BUDESONIDE/FORMETEROL FUMARATE 160/4.5 mcg INHALER IH SCH (09:01)
[2023-01-15] MEDS: NICOTINE 7 MG/24 HOURS TOPICAL PATCH TD SCH (09:01)
[2023-01-15] MEDS: LIDOCAINE 5% TOPICAL PATCH TP SCH (09:01)
[2023-01-15 09:13] VITALS: BP 132/69; PULSE 61; RESP 18; TEMP 97.1
[2023-01-15] MEDS ORDERED: AZITHROMYCIN 250 MG TABLET PO SCH (10:00)
== END 2023-01-15 09:23 | disposition home or self-care (01) | DRG 774 ==
LOC: YASAS 09:30 → UNDOADMIN 10:43 → Y3N 10:43
PROVIDERS: ADMIT Allergy & Immunology; ATTEND Allergy & Immunology
PROC: HZ2ZZZZ Detoxification Services for Substance Abuse Treatment (ICD-10-PCS; principal; 2023-01-10)
DX: F10.230 Alcohol dependence with withdrawal, uncomplicated (principal); F14.20 Cocaine dependence, uncomplicated; F17.210 Nicotine dependence, cigarettes, uncomplicated; J18.9 Pneumonia, unspecified organism; J43.9 Emphysema, unspecified; J45.901 Unspecified asthma with (acute) exacerbation; M54.50 Low back pain, unspecified; W06.XXXA Fall from bed, initial encounter; Y92.230 Patient room in hospital as the place of occurrence of the external cause; R63.4 Abnormal weight loss; Z68.23 Body mass index [BMI] 23.0-23.9, adult
CPT/HCPCS: 36415; 80053; 85027; 86780; 87389; 87635; 87811; 94640

== ENCOUNTER 2023-01-11 15:52 | Emergency (ER) | payer OTHER ==
[2023-01-11 16:26] VITALS: BP 98/59; PULSE 55; RESP 18; TEMP 98.2; BMI 22.7
[2023-01-11] MEDS ORDERED: KETOROLAC TROMETHAMINE 15 MG/ML VIAL IM ONE (17:41)
[2023-01-11] MEDS ORDERED: ACETAMINOPHEN 325 MG TABLET (FP) PO ONE (17:41)
[2023-01-11] MEDS ORDERED: LIDOCAINE 5% TOPICAL PATCH TP ONE (17:41)
[2023-01-11] MEDS ORDERED: LIDOCAINE 5% TOPICAL PATCH ONE (17:48)
[2023-01-11] MEDS ORDERED: ACETAMINOPHEN 325 MG TABLET (FP) ONE (17:48)
[2023-01-11] MEDS ORDERED: KETOROLAC TROMETHAMINE 15 MG/ML VIAL ONE (17:48)
== END 2023-01-11 20:31 | disposition home or self-care (01) ==
LOC: JER 15:52 → JERFT 15:52
PROC: 3E0233Z Introduction of Anti-inflammatory into Muscle, Percutaneous Approach (ICD-10-PCS; principal; 2023-01-11)
DX: M54.50 Low back pain, unspecified (principal)
CPT/HCPCS: 72131-TC; 96372; 99284-25

== ENCOUNTER 2023-01-14 11:44 | Emergency (ER) | payer OTHER ==
[2023-01-14 12:04] VITALS: PULSE 64; RESP 18; BMI 23.3
[2023-01-14] MEDS ORDERED: methylPREDNISolone NA SUCC 125 MG/2 ML VIAL IVPUSH ONE (12:21)
[2023-01-14] MEDS ORDERED: methylPREDNISolone NA SUCC 125 MG/2 ML VIAL ONE (12:37)
[2023-01-14] MEDS: ALBUTEROL SO4 2.5/IPRATROPIUM 0.5 INH SOL 3 ML VIAL.NEB. NEB SCH ×2 (12:47→12:58)
[2023-01-14 12:55] LABS: BASO % 0.7 % (0-2.0); EOS % 0.5 % (0-4.5); HEMATOCRIT 36.6 % (35.4-49); HEMOGLOBIN 11.9 GM/dL (11.7-16.9); LYMPH % 39.3 % (8-40); MCH 27.7 pg (25.7-33.7); MCHC 32.5 g/dl (32.0-35.9); MEAN CELL VOLUME 85.2 fl (80-96); MEAN PLT VOLUME 7.8 fl (7.5-11.1); MONO % 7.4 % (3.8-10.2); NEUT % 52.1 % (42.8-82.8); PLATELET COUNT 230 10^3/uL (134-434); RDW 15.8 % (11.9-15.9); WHITE BLOOD COUNT 7.5 K/mm3 (4.0-10.0)
[2023-01-14 13:12] LABS: POTASSIUM 4.2 mmol/L (3.5-5.1)
[2023-01-14 13:13] LABS: CALCIUM 8.3 mg/dL (8.5-10.1)
[2023-01-14 13:14] LABS: ALBUMIN 2.8 g/dl (3.4-5.0); BLOOD UREA NITROGEN 16.6 mg/dL (7-18)
[2023-01-14 13:17] LABS: CREATININE 0.8 mg/dL (0.55-1.3)
[2023-01-14 13:18] LABS: BILIRUBIN,TOTAL 0.2 mg/dL (0.2-1)
[2023-01-14] MEDS ORDERED: AZITHROMYCIN 250 MG TABLET PO ONE (15:16)
[2023-01-14] MEDS ORDERED: AMOX TR/POT CLAV 875MG/125MG TABLETS (FP) PO ONE (15:16)
[2023-01-14 15:28] VITALS: BP 125/68; TEMP 97.6
[2023-01-14] MEDS ORDERED: AMOX TR/POT CLAV 875MG/125MG TABLETS (FP) ONE (15:55)
[2023-01-14] MEDS ORDERED: AZITHROMYCIN 500 MG TABLET ONE (15:55)
== END 2023-01-14 16:32 | disposition home or self-care (01) ==
LOC: JER 11:44
PROC: 3E0F7GC Introduction of Other Therapeutic Substance into Respiratory Tract, Via Natural or Artificial Opening (ICD-10-PCS; principal; 2023-01-14)
PROC: 3E033GC Introduction of Other Therapeutic Substance into Peripheral Vein, Percutaneous Approach (ICD-10-PCS; 2023-01-14)
DX: J18.9 Pneumonia, unspecified organism (principal)
CPT/HCPCS: 0241U-QW; 36415; 71045-TC-FY; 71275-TC; 80053; 84484; 85025; 93005; 93010; 99285-25; Q9967

== ENCOUNTER 2023-01-24 18:54 | Inpatient (IN) | payer OTHER ==
[2023-01-24 20:11] VITALS: BMI 21.7
[2023-01-24] MEDS ORDERED: MAGNESIUM HYDROX 2400MG/30ML ORAL SUSPENSION 30 ML CUP PO PRN (21:44)
[2023-01-24] MEDS ORDERED: ONDANSETRON *ODT* 4 MG TABLET SL PRN (21:44)
[2023-01-24] MEDS ORDERED: NALOXONE HCL 0.4 MG/ML VIAL IM PRN (21:44)
[2023-01-24] MEDS ORDERED: BENZOCAINE/MENTHOL (CHLORASEPTIC ) LOZENGE MM PRN (21:44)
[2023-01-24] MEDS ORDERED: guaiFENesin 600 MG TABLET.ER (FP) PO PRN (21:44)
[2023-01-24] MEDS ORDERED: POLYETHYLENE GLYCOL (HEALTHYLAX) 3350 17 GM PACKET PO PRN (21:44)
[2023-01-24] MEDS ORDERED: BENZONATATE 200 MG CAPSULE PO PRN (21:44)
[2023-01-24] MEDS ORDERED: IBUPROFEN 400 MG TABLET (FP) PO PRN (21:44)
[2023-01-24] MEDS ORDERED: ACETAMINOPHEN 325 MG TABLET (FP) PO PRN (21:44)
[2023-01-24] MEDS ORDERED: MAG HYDROX/AL HYDROX/SIMETH 30 ML UNIT-DOSE CUP PO PRN (21:44)
[2023-01-24] MEDS ORDERED: BISMUTH SUBSALICYLATE 524 MG/30 ML PO PRN (21:44)
[2023-01-24] MEDS ORDERED: NALOXONE HCL (KLOXXADO) 8 MG SPRAY NS PRN (21:44)
[2023-01-24] MEDS ORDERED: DICYCLOMINE HCL 10 MG CAPSULE PO PRN (21:44)
[2023-01-24] MEDS ORDERED: LOPERAMIDE HCL 2 MG CAPSULE PO PRN (21:44)
[2023-01-24] MEDS ORDERED: chlordiazePOXIDE HCL 25 MG CAPSULE PO PRN (21:51)
[2023-01-24] MEDS ORDERED: chlordiazePOXIDE HCL 25 MG CAPSULE ONE (23:51)
[2023-01-24] MEDS: chlordiazePOXIDE HCL 25 MG CAPSULE PO SCH (23:53)
[2023-01-25] MEDS: THIAMINE HCL 100 MG TABLET (FP) PO SCH ×2 (00:55→22:17)
[2023-01-25] MEDS: MELATONIN 5 MG TABLETS PO SCH ×2 (00:55→22:17)
[2023-01-25] MEDS: chlordiazePOXIDE HCL 25 MG CAPSULE PO SCH ×4 (05:51→22:18)
[2023-01-25] MEDS: PRENATAL VITAMINS W/ FOLIC ACID TABLET (FP) PO SCH (10:26)
[2023-01-25 11:18] LABS: HEMATOCRIT 38.3 % (35.4-49); HEMOGLOBIN 12.4 GM/dL (11.7-16.9); MCH 28.2 pg (25.7-33.7); MCHC 32.4 g/dl (32.0-35.9); MEAN CELL VOLUME 87.1 fl (80-96); MEAN PLT VOLUME 8.7 fl (7.5-11.1); PLATELET COUNT 219 10^3/uL (134-434); RDW 15.3 % (11.9-15.9)
[2023-01-25 13:41] LABS: POTASSIUM 4.2 mmol/L (3.5-5.1)
[2023-01-25 13:47] LABS: CALCIUM 8.8 mg/dL (8.5-10.1)
[2023-01-25 13:48] LABS: ALBUMIN 3.2 g/dl (3.4-5.0); BLOOD UREA NITROGEN 23.4 mg/dL (7-18)
[2023-01-25 13:51] LABS: CREATININE 1.1 mg/dL (0.55-1.3)
[2023-01-25 13:52] LABS: BILIRUBIN,TOTAL 0.5 mg/dL (0.2-1); TOT PROT 6.7 g/dl (6.4-8.2)
[2023-01-25 14:31] LABS: HIV INTERPRETATION NEGATIVE (NEGATIVE)
[2023-01-25] MEDS: IBUPROFEN 600 MG TABLET (FP) PO PRN (22:20)
[2023-01-26] MEDS: chlordiazePOXIDE HCL 25 MG CAPSULE PO SCH ×4 (05:21→22:19)
[2023-01-26] MEDS: PRENATAL VITAMINS W/ FOLIC ACID TABLET (FP) PO SCH (10:14)
[2023-01-26] MEDS ORDERED: ALBUTEROL SO4 2.5/IPRATROPIUM 0.5 INH SOL 3 ML VIAL.NEB. NEB ONE (14:40)
[2023-01-26] MEDS ORDERED: LIDOCAINE 5% TOPICAL PATCH TP ONE (14:50)
[2023-01-26] MEDS ORDERED: ALBUTEROL SO4 2.5/IPRATROPIUM 0.5 INH SOL 3 ML VIAL.NEB. NEB PRN (15:34)
[2023-01-26] MEDS: MELATONIN 5 MG TABLETS PO SCH (22:19)
[2023-01-26] MEDS: THIAMINE HCL 100 MG TABLET (FP) PO SCH (22:20)
[2023-01-26] MEDS: LIDOCAINE PATCH REMOVAL MC SCH (22:21)
[2023-01-26] MEDS: BUDESONIDE/FORMETEROL FUMARATE 160/4.5 mcg INHALER IH SCH (22:21)
[2023-01-27] MEDS ORDERED: chlordiazePOXIDE HCL 10 MG CAPSULE PO PRN
[2023-01-27] MEDS: chlordiazePOXIDE HCL 10 MG CAPSULE PO SCH ×4 (05:25→22:04)
[2023-01-27] MEDS: IBUPROFEN 600 MG TABLET (FP) PO PRN (05:28)
[2023-01-27] MEDS: BUDESONIDE/FORMETEROL FUMARATE 160/4.5 mcg INHALER IH SCH ×2 (10:18→22:03)
[2023-01-27] MEDS: PRENATAL VITAMINS W/ FOLIC ACID TABLET (FP) PO SCH (10:18)
[2023-01-27] MEDS: LIDOCAINE 5% TOPICAL PATCH TP SCH (11:37)
[2023-01-27] MEDS: ALBUTEROL SO4 2.5/IPRATROPIUM 0.5 INH SOL 3 ML VIAL.NEB. NEB SCH (21:00)
[2023-01-27] MEDS: MELATONIN 5 MG TABLETS PO SCH (22:04)
[2023-01-27] MEDS: THIAMINE HCL 100 MG TABLET (FP) PO SCH (22:04)
[2023-01-27] MEDS: LIDOCAINE PATCH REMOVAL MC SCH (22:05)
[2023-01-28] MEDS: ALBUTEROL SO4 HFA INHALER IH PRN (01:00)
[2023-01-28] MEDS: chlordiazePOXIDE HCL 10 MG CAPSULE PO SCH ×2 (05:05→17:36)
[2023-01-28] MEDS: ALBUTEROL SO4 2.5/IPRATROPIUM 0.5 INH SOL 3 ML VIAL.NEB. NEB SCH ×2 (07:08→22:15)
[2023-01-28] MEDS: BUDESONIDE/FORMETEROL FUMARATE 160/4.5 mcg INHALER IH SCH ×2 (10:50→22:46)
[2023-01-28] MEDS: LIDOCAINE 5% TOPICAL PATCH TP SCH (10:50)
[2023-01-28] MEDS: PRENATAL VITAMINS W/ FOLIC ACID TABLET (FP) PO SCH (10:50)
[2023-01-28] MEDS: IBUPROFEN 600 MG TABLET (FP) PO PRN (17:39)
[2023-01-28 21:15] VITALS: RESP 17
[2023-01-28] MEDS: THIAMINE HCL 100 MG TABLET (FP) PO SCH (22:46)
[2023-01-28] MEDS: MELATONIN 5 MG TABLETS PO SCH (22:46)
[2023-01-28] MEDS: LIDOCAINE PATCH REMOVAL MC SCH (22:47)
[2023-01-28] MEDS ORDERED: ALBUTEROL SO4 2.5/IPRATROPIUM 0.5 INH SOL 3 ML VIAL.NEB. NEB PRN (23:06)
[2023-01-29] MEDS ORDERED: chlordiazePOXIDE HCL 10 MG CAPSULE PO ONE (05:00)
[2023-01-29] MEDS: ALBUTEROL SO4 2.5/IPRATROPIUM 0.5 INH SOL 3 ML VIAL.NEB. NEB SCH (08:00)
[2023-01-29 09:13] VITALS: BP 122/70; PULSE 59; TEMP 97.5
[2023-01-29] MEDS: PRENATAL VITAMINS W/ FOLIC ACID TABLET (FP) PO SCH (09:43)
[2023-01-29] MEDS: LIDOCAINE 5% TOPICAL PATCH TP SCH (09:43)
[2023-01-29] MEDS: ALBUTEROL SO4 HFA INHALER IH PRN (09:44)
[2023-01-29] MEDS: BUDESONIDE/FORMETEROL FUMARATE 160/4.5 mcg INHALER IH SCH (10:44)
== END 2023-01-29 10:10 | disposition home or self-care (01) | DRG 774 ==
LOC: YASAS 18:54 → Y3N 23:51 → Y6N 01-28 12:05
PROVIDERS: ADMIT Allergy & Immunology; ATTEND Allergy & Immunology
PROC: HZ2ZZZZ Detoxification Services for Substance Abuse Treatment (ICD-10-PCS; principal; 2023-01-24)
DX: F10.230 Alcohol dependence with withdrawal, uncomplicated (principal); F14.20 Cocaine dependence, uncomplicated; F17.210 Nicotine dependence, cigarettes, uncomplicated; J43.9 Emphysema, unspecified; J45.20 Mild intermittent asthma, uncomplicated; R63.4 Abnormal weight loss; Z68.21 Body mass index [BMI] 21.0-21.9, adult
CPT/HCPCS: 36415; 71046-TC-FY; 80053; 85027; 86780; 87389; 87635; 87811; 93005; 93010; 94640

== ENCOUNTER 2023-03-17 23:19 | Inpatient (IN) | payer OTHER ==
[2023-03-17 23:56] VITALS: BMI 24.9
[2023-03-18] MEDS ORDERED: NALOXONE HCL (KLOXXADO) 8 MG SPRAY NS PRN (00:11)
[2023-03-18] MEDS ORDERED: BISMUTH SUBSALICYLATE 524 MG/30 ML PO PRN (00:11)
[2023-03-18] MEDS ORDERED: IBUPROFEN 400 MG TABLET (FP) PO PRN (00:11)
[2023-03-18] MEDS ORDERED: POLYETHYLENE GLYCOL (HEALTHYLAX) 3350 17 GM PACKET PO PRN (00:11)
[2023-03-18] MEDS ORDERED: MAG HYDROX/AL HYDROX/SIMETH 30 ML UNIT-DOSE CUP PO PRN (00:11)
[2023-03-18] MEDS ORDERED: ONDANSETRON *ODT* 4 MG TABLET SL PRN (00:11)
[2023-03-18] MEDS ORDERED: BENZONATATE 200 MG CAPSULE PO PRN (00:11)
[2023-03-18] MEDS ORDERED: MAGNESIUM HYDROX 2400MG/30ML ORAL SUSPENSION 30 ML CUP PO PRN (00:11)
[2023-03-18] MEDS ORDERED: LOPERAMIDE HCL 2 MG CAPSULE PO PRN (00:11)
[2023-03-18] MEDS ORDERED: NALOXONE HCL 0.4 MG/ML VIAL IM PRN (00:11)
[2023-03-18] MEDS ORDERED: NICOTINE POLACRILEX 2 MG GUM BUC PRN (00:11)
[2023-03-18] MEDS ORDERED: BENZOCAINE/MENTHOL (CHLORASEPTIC ) LOZENGE MM PRN (00:11)
[2023-03-18] MEDS ORDERED: LORazepam 1 MG TABLET PO PRN (00:11)
[2023-03-18] MEDS ORDERED: ACETAMINOPHEN 325 MG TABLET (FP) PO PRN (00:11)
[2023-03-18] MEDS ORDERED: guaiFENesin 600 MG TABLET.ER (FP) PO PRN (00:11)
[2023-03-18] MEDS ORDERED: DICYCLOMINE HCL 10 MG CAPSULE PO PRN (00:11)
[2023-03-18] MEDS: LORazepam 2 MG TABLET PO SCH ×4 (05:40→23:05)
[2023-03-18] MEDS: IBUPROFEN 600 MG TABLET (FP) PO PRN ×2 (05:41→23:20)
[2023-03-18] MEDS: PRENATAL VITAMINS W/ FOLIC ACID TABLET (FP) PO SCH (10:37)
[2023-03-18] MEDS: NICOTINE 14 MG/24 HOURS TOPICAL PATCH TD SCH (10:52)
[2023-03-18] MEDS: MELATONIN 5 MG TABLETS PO SCH (23:04)
[2023-03-18] MEDS: THIAMINE HCL 100 MG TABLET (FP) PO SCH (23:04)
[2023-03-19] MEDS ORDERED: ALBUTEROL SO4 HFA INHALER IH PRN (02:45)
[2023-03-19] MEDS ORDERED: LORazepam 1 MG TABLET PO SCH (05:00)
[2023-03-19] MEDS: NICOTINE 14 MG/24 HOURS TOPICAL PATCH TD SCH (09:44)
[2023-03-19] MEDS: PRENATAL VITAMINS W/ FOLIC ACID TABLET (FP) PO SCH (09:44)
[2023-03-19] MEDS: IBUPROFEN 600 MG TABLET (FP) PO PRN ×2 (10:58→16:46)
[2023-03-19] MEDS: LORazepam 0.5 MG TABLET PO SCH ×2 (14:15→22:18)
[2023-03-19] MEDS: THIAMINE HCL 100 MG TABLET (FP) PO SCH (22:18)
[2023-03-19] MEDS: MELATONIN 5 MG TABLETS PO SCH (22:20)
[2023-03-20] MEDS ORDERED: LORazepam 0.5 MG TABLET PO PRN
[2023-03-20] MEDS ORDERED: LORazepam 0.5 MG TABLET PO SCH (05:00)
[2023-03-20] MEDS: PRENATAL VITAMINS W/ FOLIC ACID TABLET (FP) PO SCH (09:34)
[2023-03-20] MEDS: IBUPROFEN 600 MG TABLET (FP) PO PRN ×2 (09:34→17:02)
[2023-03-20] MEDS: NICOTINE 14 MG/24 HOURS TOPICAL PATCH TD SCH (09:34)
[2023-03-20] MEDS: LORazepam 0.5 MG TABLET PO SCH ×2 (09:34→22:06)
[2023-03-20] MEDS: BUDESONIDE/FORMETEROL FUMARATE 160/4.5 mcg INHALER IH SCH ×2 (09:36→22:07)
[2023-03-20 10:18] LABS: HEMATOCRIT 36.9 % (35.4-49); HEMOGLOBIN 12.5 GM/dL (11.7-16.9); MCH 28.9 pg (25.7-33.7); MEAN CELL VOLUME 85.1 fl (80-96); MEAN PLT VOLUME 8.2 fl (7.5-11.1); PLATELET COUNT 228 10^3/uL (134-434); RBC 4.33 M/mm3 (4.00-5.60); RDW 14.9 % (11.9-15.9); WHITE BLOOD COUNT 3.9 K/mm3 (4.0-10.0)
[2023-03-20 10:22] LABS: POTASSIUM 4.1 mmol/L (3.5-5.1)
[2023-03-20 10:39] LABS: ALBUMIN 2.8 g/dl (3.4-5.0); BLOOD UREA NITROGEN 16.6 mg/dL (7-18); CALCIUM 8.3 mg/dL (8.5-10.1)
[2023-03-20 10:44] LABS: BILIRUBIN,TOTAL 0.2 mg/dL (0.2-1); TOT PROT 5.6 g/dl (6.4-8.2)
[2023-03-20 11:38] LABS: HIV INTERPRETATION NEGATIVE (NEGATIVE)
[2023-03-20] MEDS: LACTULOSE 20 GM/30 ML UDC (FOR ORAL USE ONLY) PO SCH ×3 (13:41→22:09)
[2023-03-20] MEDS ORDERED: METHOCARBAMOL 500 MG TABLET PO ONE (13:45)
[2023-03-20] MEDS: MELATONIN 5 MG TABLETS PO SCH (22:07)
[2023-03-20] MEDS: THIAMINE HCL 100 MG TABLET (FP) PO SCH (22:07)
[2023-03-21] MEDS ORDERED: LORazepam 0.5 MG TABLET PO ONE (05:00)
[2023-03-21 08:55] VITALS: RESP 16
[2023-03-21] MEDS: PRENATAL VITAMINS W/ FOLIC ACID TABLET (FP) PO SCH (09:39)
[2023-03-21] MEDS: NICOTINE 14 MG/24 HOURS TOPICAL PATCH TD SCH (09:39)
[2023-03-21] MEDS: LACTULOSE 20 GM/30 ML UDC (FOR ORAL USE ONLY) PO SCH (09:39)
[2023-03-21] MEDS: BUDESONIDE/FORMETEROL FUMARATE 160/4.5 mcg INHALER IH SCH (09:45)
[2023-03-21 12:30] VITALS: BP 116/69; PULSE 62; TEMP 98.4
== END 2023-03-21 12:45 | disposition other institution (70) | DRG 774 ==
LOC: YASAS 23:19 → Y6N 03-18 01:46
PROVIDERS: ADMIT Allergy & Immunology; ATTEND Surgery
PROC: HZ2ZZZZ Detoxification Services for Substance Abuse Treatment (ICD-10-PCS; principal; 2023-03-18)
DX: F10.230 Alcohol dependence with withdrawal, uncomplicated (principal); F14.20 Cocaine dependence, uncomplicated; F17.210 Nicotine dependence, cigarettes, uncomplicated; J45.909 Unspecified asthma, uncomplicated; Z56.0 Unemployment, unspecified; Z59.00 Homelessness unspecified
CPT/HCPCS: 36415; 80053; 82140; 85027; 86780; 87389; 87635; 87811

== ENCOUNTER 2023-03-21 12:40 | Inpatient (IN) | payer OTHER ==
[2023-03-21] MEDS ORDERED: MAGNESIUM HYDROX 2400MG/30ML ORAL SUSPENSION 30 ML CUP PO PRN (15:51)
[2023-03-21] MEDS ORDERED: NALOXONE HCL (KLOXXADO) 8 MG SPRAY NS PRN (15:51)
[2023-03-21] MEDS ORDERED: BENZONATATE 200 MG CAPSULE PO PRN (15:51)
[2023-03-21] MEDS ORDERED: NALOXONE HCL 0.4 MG/ML VIAL IVPUSH PRN (15:51)
[2023-03-21] MEDS ORDERED: MAG HYDROX/AL HYDROX/SIMETH 30 ML UNIT-DOSE CUP PO PRN (15:51)
[2023-03-21] MEDS ORDERED: IBUPROFEN 400 MG TABLET (FP) PO PRN (15:51)
[2023-03-21] MEDS ORDERED: LOPERAMIDE HCL 2 MG CAPSULE PO PRN (15:51)
[2023-03-21] MEDS ORDERED: POLYETHYLENE GLYCOL (HEALTHYLAX) 3350 17 GM PACKET PO PRN (15:51)
[2023-03-21] MEDS ORDERED: guaiFENesin 600 MG TABLET.ER (FP) PO PRN (15:51)
[2023-03-21] MEDS ORDERED: COLLOIDAL OATMEAL 1 BAR EACH TP PRN (15:51)
[2023-03-21] MEDS ORDERED: NICOTINE 14 MG/24 HOURS TOPICAL PATCH TD PRN (15:51)
[2023-03-21] MEDS ORDERED: BENZOCAINE/MENTHOL (CHLORASEPTIC ) LOZENGE MM PRN (15:51)
[2023-03-21] MEDS ORDERED: NICOTINE POLACRILEX 4 MG GUM BUC PRN (15:51)
[2023-03-21] MEDS ORDERED: ALBUTEROL SO4 HFA INHALER IH PRN (15:53)
[2023-03-21] MEDS: THIAMINE HCL 100 MG TABLET (FP) PO SCH (21:23)
[2023-03-21] MEDS: IBUPROFEN 600 MG TABLET (FP) PO PRN (21:24)
[2023-03-21] MEDS ORDERED: MELATONIN 5 MG TABLETS PO SCH (22:00)
[2023-03-21] MEDS: BUDESONIDE/FORMETEROL FUMARATE 160/4.5 mcg INHALER IH SCH (22:22)
[2023-03-22 06:54] VITALS: RESP 18
[2023-03-22] MEDS: PRENATAL VITAMINS W/ FOLIC ACID TABLET (FP) PO SCH (09:56)
[2023-03-22] MEDS: BUDESONIDE/FORMETEROL FUMARATE 160/4.5 mcg INHALER IH SCH ×2 (09:56→21:13)
[2023-03-22] MEDS: METHOCARBAMOL 500 MG TABLET PO PRN ×2 (09:57→17:08)
[2023-03-22] MEDS ORDERED: FLU VACCINE (FLULAVAL) PF 60 MCG/0.5 ML SYRINGE 2023-2024 IM ONE (12:00)
[2023-03-22] MEDS: LACTULOSE 20 GM/30 ML UDC (FOR ORAL USE ONLY) PO SCH ×2 (14:41→21:12)
[2023-03-22] MEDS: predniSONE 20 MG TABLET (UD) PO SCH (14:41)
[2023-03-22] MEDS: hydrOXYzine PAMOATE 25 MG CAPSULE (FP) PO PRN (17:08)
[2023-03-22] MEDS: MELATONIN 5 MG TABLETS PO SCH (21:12)
[2023-03-22] MEDS: THIAMINE HCL 100 MG TABLET (FP) PO SCH (21:14)
[2023-03-23] MEDS: LACTULOSE 20 GM/30 ML UDC (FOR ORAL USE ONLY) PO SCH ×3 (05:34→21:23)
[2023-03-23] MEDS: predniSONE 20 MG TABLET (UD) PO SCH (10:19)
[2023-03-23] MEDS: PRENATAL VITAMINS W/ FOLIC ACID TABLET (FP) PO SCH (10:19)
[2023-03-23] MEDS: NALTREXONE HCL 50 MG TABLET PO SCH (10:19)
[2023-03-23] MEDS: BUDESONIDE/FORMETEROL FUMARATE 160/4.5 mcg INHALER IH SCH ×2 (10:20→21:23)
[2023-03-23 10:46] LABS: INR 1.02 (0.83-1.09); PROTHROMBIN TIME (PATIENT) 11.8 SEC (9.7-13.0)
[2023-03-23] MEDS: THIAMINE HCL 100 MG TABLET (FP) PO SCH (21:23)
[2023-03-23] MEDS: MELATONIN 5 MG TABLETS PO SCH (21:24)
[2023-03-23] MEDS: MIRTAZAPINE 15 MG TABLET (FP) PO SCH (21:26)
[2023-03-24] MEDS: LACTULOSE 20 GM/30 ML UDC (FOR ORAL USE ONLY) PO SCH ×3 (06:03→21:16)
[2023-03-24] MEDS: predniSONE 20 MG TABLET (UD) PO SCH (10:08)
[2023-03-24] MEDS: PRENATAL VITAMINS W/ FOLIC ACID TABLET (FP) PO SCH (10:08)
[2023-03-24] MEDS: NALTREXONE HCL 50 MG TABLET PO SCH (10:08)
[2023-03-24] MEDS: BUDESONIDE/FORMETEROL FUMARATE 160/4.5 mcg INHALER IH SCH ×2 (10:09→21:16)
[2023-03-24] MEDS: METHOCARBAMOL 500 MG TABLET PO PRN ×2 (13:52→21:19)
[2023-03-24] MEDS: THIAMINE HCL 100 MG TABLET (FP) PO SCH (21:16)
[2023-03-24] MEDS: MIRTAZAPINE 15 MG TABLET (FP) PO SCH (21:16)
[2023-03-24] MEDS: MELATONIN 5 MG TABLETS PO SCH (21:16)
[2023-03-25] MEDS: hydrOXYzine PAMOATE 25 MG CAPSULE (FP) PO PRN (01:22)
[2023-03-25] MEDS: LACTULOSE 20 GM/30 ML UDC (FOR ORAL USE ONLY) PO SCH ×3 (06:04→21:18)
[2023-03-25] MEDS: PRENATAL VITAMINS W/ FOLIC ACID TABLET (FP) PO SCH (10:10)
[2023-03-25] MEDS: BUDESONIDE/FORMETEROL FUMARATE 160/4.5 mcg INHALER IH SCH ×2 (10:10→21:18)
[2023-03-25] MEDS: predniSONE 20 MG TABLET (UD) PO SCH (10:11)
[2023-03-25] MEDS: NALTREXONE HCL 50 MG TABLET PO SCH (10:11)
[2023-03-25] MEDS: METHOCARBAMOL 500 MG TABLET PO PRN ×2 (11:54→17:08)
[2023-03-25] MEDS: MIRTAZAPINE 15 MG TABLET (FP) PO SCH (21:17)
[2023-03-25] MEDS: MELATONIN 5 MG TABLETS PO SCH (21:17)
[2023-03-25] MEDS: THIAMINE HCL 100 MG TABLET (FP) PO SCH (21:18)
[2023-03-26] MEDS: LACTULOSE 20 GM/30 ML UDC (FOR ORAL USE ONLY) PO SCH ×3 (06:52→21:17)
[2023-03-26] MEDS: METHOCARBAMOL 500 MG TABLET PO PRN ×2 (09:52→18:11)
[2023-03-26] MEDS: PRENATAL VITAMINS W/ FOLIC ACID TABLET (FP) PO SCH (09:52)
[2023-03-26] MEDS: BUDESONIDE/FORMETEROL FUMARATE 160/4.5 mcg INHALER IH SCH ×2 (09:52→21:15)
[2023-03-26] MEDS: NALTREXONE HCL 50 MG TABLET PO SCH (09:52)
[2023-03-26] MEDS ORDERED: predniSONE 10 MG TABLET (UD) PO ONE (10:00)
[2023-03-26] MEDS: IBUPROFEN 600 MG TABLET (FP) PO PRN (13:35)
[2023-03-26] MEDS: THIAMINE HCL 100 MG TABLET (FP) PO SCH (21:16)
[2023-03-26] MEDS: MIRTAZAPINE 15 MG TABLET (FP) PO SCH (21:16)
[2023-03-26] MEDS: MELATONIN 5 MG TABLETS PO SCH (21:16)
[2023-03-27] MEDS: LACTULOSE 20 GM/30 ML UDC (FOR ORAL USE ONLY) PO SCH ×3 (06:01→21:17)
[2023-03-27] MEDS: METHOCARBAMOL 500 MG TABLET PO PRN (06:02)
[2023-03-27 07:04] VITALS: PULSE 60
[2023-03-27] MEDS: PRENATAL VITAMINS W/ FOLIC ACID TABLET (FP) PO SCH (09:50)
[2023-03-27] MEDS: NALTREXONE HCL 50 MG TABLET PO SCH (09:51)
[2023-03-27] MEDS: BUDESONIDE/FORMETEROL FUMARATE 160/4.5 mcg INHALER IH SCH ×2 (09:51→21:18)
[2023-03-27] MEDS ORDERED: predniSONE 20 MG TABLET (UD) PO ONE (10:00)
[2023-03-27] MEDS: IBUPROFEN 600 MG TABLET (FP) PO PRN (14:15)
[2023-03-27] MEDS: MIRTAZAPINE 15 MG TABLET (FP) PO SCH (21:17)
[2023-03-27] MEDS: MELATONIN 5 MG TABLETS PO SCH (21:17)
[2023-03-27] MEDS: THIAMINE HCL 100 MG TABLET (FP) PO SCH (21:17)
[2023-03-28] MEDS: IBUPROFEN 600 MG TABLET (FP) PO PRN ×2 (01:29→06:01)
[2023-03-28] MEDS: LACTULOSE 20 GM/30 ML UDC (FOR ORAL USE ONLY) PO SCH (06:01)
[2023-03-28 06:31] VITALS: BP 121/71; TEMP 97.8
[2023-03-28] MEDS ORDERED: NALTREXONE MICROSPHERES (VIVITROL) 380 MG DISP.SYRIN IM ONE (09:30)
[2023-03-28] MEDS: BUDESONIDE/FORMETEROL FUMARATE 160/4.5 mcg INHALER IH SCH (09:48)
[2023-03-28] MEDS ORDERED: predniSONE 10 MG TABLET (UD) PO ONE (10:00)
[2023-03-29] MEDS ORDERED: predniSONE 5 MG TABLET (UD) PO ONE (10:00)
== END 2023-03-28 12:45 | disposition home or self-care (01) | DRG 772 ==
LOC: YASAS 12:40 → Y5N 12:41
PROVIDERS: ADMIT Allergy & Immunology; ATTEND Psychiatry & Neurology Pain Medicine
PROC: HZ42ZZZ Group Counseling for Substance Abuse Treatment, Cognitive-Behavioral (ICD-10-PCS; principal; 2023-03-21)
DX: F10.20 Alcohol dependence, uncomplicated (principal); F14.20 Cocaine dependence, uncomplicated; F12.20 Cannabis dependence, uncomplicated; F17.210 Nicotine dependence, cigarettes, uncomplicated; F19.24 Other psychoactive substance dependence with psychoactive substance-induced mood disorder; E72.20 Disorder of urea cycle metabolism, unspecified; E67.3 Hypervitaminosis D; J43.9 Emphysema, unspecified
CPT/HCPCS: 36415; 82140; 82652; 83735; 85610; 86803; 90686; G0008; J2315

== ENCOUNTER 2023-09-02 10:27 | Inpatient (IN) | payer OTHER ==
[2023-09-02 11:05] VITALS: BMI 23.5
[2023-09-02] MEDS ORDERED: chlordiazePOXIDE HCL 25 MG CAPSULE PO PRN (12:09)
[2023-09-02] MEDS ORDERED: LOPERAMIDE HCL 2 MG CAPSULE PO PRN (12:09)
[2023-09-02] MEDS ORDERED: BENZOCAINE/MENTHOL (CHLORASEPTIC ) LOZENGE MM PRN (12:09)
[2023-09-02] MEDS ORDERED: NALOXONE HCL (KLOXXADO) 8 MG SPRAY NS PRN (12:09)
[2023-09-02] MEDS ORDERED: BISMUTH SUBSALICYLATE 524 MG/30 ML PO PRN (12:09)
[2023-09-02] MEDS ORDERED: DICYCLOMINE HCL 10 MG CAPSULE PO PRN (12:09)
[2023-09-02] MEDS ORDERED: guaiFENesin 600 MG TABLET.ER (FP) PO PRN (12:09)
[2023-09-02] MEDS ORDERED: NALOXONE HCL 0.4 MG/ML VIAL IM PRN (12:09)
[2023-09-02] MEDS ORDERED: MAGNESIUM HYDROX 2400MG/30ML ORAL SUSPENSION 30 ML CUP PO PRN (12:09)
[2023-09-02] MEDS ORDERED: NICOTINE POLACRILEX 4 MG GUM BUC PRN (12:09)
[2023-09-02] MEDS ORDERED: POLYETHYLENE GLYCOL (HEALTHYLAX) 3350 17 GM PACKET PO PRN (12:09)
[2023-09-02] MEDS ORDERED: MAG HYDROX/AL HYDROX/SIMETH 30 ML UNIT-DOSE CUP PO PRN (12:09)
[2023-09-02] MEDS ORDERED: NICOTINE POLACRILEX 4 MG LOZENGE BC PRN (12:09)
[2023-09-02] MEDS ORDERED: BENZONATATE 200 MG CAPSULE PO PRN (12:09)
[2023-09-02] MEDS ORDERED: ALBUTEROL SO4 HFA INHALER IH PRN (12:13)
[2023-09-02] MEDS ORDERED: PATIENT'S OWN MEDICATION (NON-FORMULARY) (Baclofen [Baclofen] 5 MG Tablet) PO PRN (12:13)
[2023-09-02] MEDS ORDERED: MELOXICAM 7.5 MG PO PRN (12:13)
[2023-09-02] MEDS ORDERED: ALBUTEROL SO4 2.5/IPRATROPIUM 0.5 INH SOL 3 ML VIAL.NEB. NEB PRN (12:21)
[2023-09-02] MEDS ORDERED: METHOCARBAMOL 500 MG TABLET ONE (12:53)
[2023-09-02] MEDS: METHOCARBAMOL 500 MG TABLET PO ONE (12:54)
[2023-09-02] MEDS: ONDANSETRON *ODT* 4 MG TABLET SL PRN (13:38)
[2023-09-02] MEDS ORDERED: ONDANSETRON *ODT* 4 MG TABLET ONE (13:38)
[2023-09-02] MEDS: chlordiazePOXIDE HCL 25 MG CAPSULE PO SCH (18:00)
[2023-09-02] MEDS: BACLOFEN 10 MG TABLET (FP) PO PRN (18:00)
[2023-09-02] MEDS: LIDOCAINE PATCH REMOVAL MC SCH (22:40)
[2023-09-02] MEDS: ATORVASTATIN CA 20 MG TABLET (FP) PO SCH (22:44)
[2023-09-02] MEDS: THIAMINE HCL 100 MG TABLET (FP) PO SCH (22:44)
[2023-09-02] MEDS: ACETAMINOPHEN 325 MG TABLET (FP) PO PRN (22:44)
[2023-09-02] MEDS: MELATONIN 5 MG TABLETS PO SCH (22:45)
[2023-09-02] MEDS: BUDESONIDE/FORMETEROL FUMARATE 160/4.5 mcg INHALER IH SCH (22:51)
[2023-09-03] MEDS: PRENATAL VITAMINS W/ FOLIC ACID TABLET (FP) PO SCH (10:46)
[2023-09-03 10:59] LABS: HEMATOCRIT 37.3 % (35.4-49); HEMOGLOBIN 12.1 GM/dL (11.7-16.9); MCHC 32.5 g/dl (32.0-35.9); MEAN CELL VOLUME 86.1 fl (80-96); MEAN PLT VOLUME 8.5 fl (7.5-11.1); PLATELET COUNT 180 10^3/uL (134-434); RBC 4.33 M/mm3 (4.00-5.60); RDW 15.6 % (11.9-15.9)
[2023-09-03 11:14] LABS: CHLORIDE 109 mmol/L (98-107); POTASSIUM 3.9 mmol/L (3.5-5.1); SODIUM 141 mmol/L (136-145)
[2023-09-03 11:22] LABS: ANION GAP 4 mmol/L (4-13); BLOOD UREA NITROGEN 13.4 mg/dL (7-18); CALCIUM 8.3 mg/dL (8.5-10.1); CO2 28 mmol/L (21-32); GLUCOSE,RANDOM 125 mg/dL (74-106)
[2023-09-03 11:23] LABS: ALBUMIN 2.9 g/dl (3.4-5.0)
[2023-09-03 11:25] LABS: SGPT/ALT 32 U/L (13-61)
[2023-09-03 11:26] LABS: CREATININE 1.1 mg/dL (0.55-1.3); SGOT/AST 33 U/L (15-37)
[2023-09-03 11:27] LABS: BILIRUBIN,TOTAL 0.3 mg/dL (0.2-1); TOT PROT 5.8 g/dl (6.4-8.2)
[2023-09-03 11:28] LABS: ALK PHOS 61 U/L (45-117)
[2023-09-04] MEDS: LIDOCAINE 5% TOPICAL PATCH TP PRN (02:23)
[2023-09-04] MEDS: chlordiazePOXIDE HCL 25 MG CAPSULE PO SCH (05:07)
[2023-09-04 23:06] VITALS: RESP 16
[2023-09-05] MEDS ORDERED: chlordiazePOXIDE HCL 10 MG CAPSULE PO PRN
[2023-09-05] MEDS: chlordiazePOXIDE HCL 10 MG CAPSULE PO SCH (05:11)
[2023-09-05 06:06] VITALS: PULSE 62
[2023-09-05 08:56] VITALS: TEMP 97.3
[2023-09-05 08:59] VITALS: BP 144/74
[2023-09-06] MEDS ORDERED: chlordiazePOXIDE HCL 10 MG CAPSULE PO SCH (05:00)
[2023-09-07] MEDS ORDERED: chlordiazePOXIDE HCL 10 MG CAPSULE PO ONE (05:00)
== END 2023-09-05 09:35 | disposition home or self-care (01) | DRG 774 ==
LOC: YASAS 10:27 → Y6N 12:06
PROVIDERS: ADMIT Neuromusculoskeletal Medicine & OMM; ATTEND Surgery
PROC: HZ2ZZZZ Detoxification Services for Substance Abuse Treatment (ICD-10-PCS; principal; 2023-09-02)
DX: F10.230 Alcohol dependence with withdrawal, uncomplicated (principal); F14.20 Cocaine dependence, uncomplicated; F17.210 Nicotine dependence, cigarettes, uncomplicated; E72.20 Disorder of urea cycle metabolism, unspecified; E78.5 Hyperlipidemia, unspecified; J43.9 Emphysema, unspecified; J45.20 Mild intermittent asthma, uncomplicated; M16.12 Unilateral primary osteoarthritis, left hip; M54.50 Low back pain, unspecified; G89.29 Other chronic pain; Z99.89 Dependence on other enabling machines and devices; Z87.19 Personal history of other diseases of the digestive system
CPT/HCPCS: 36415; 80053; 80305; 80307; 82140; 83036; 85027; 86780; 87635; 87811; 93005; 93010; J0475; Q0162